=== PATIENT | female | born 1960 | race Caucasian/White ===

== ENCOUNTER 2016-12-02 03:40 | Emergency (ER) ==
[2016-12-02] MEDS ORDERED: ATIVAN IV ONE (04:05)
[2016-12-02] MEDS ORDERED: NS 500 ML IV ONE (04:06)
[2016-12-02] MEDS ORDERED: SODIUM CHLORIDE 0.9% INJ ONE (04:06)
[2016-12-02] MEDS ORDERED: PHENERGAN IV ONE (04:06)
[2016-12-02 04:14] LABS: MANUAL DIFF NEEDED? NO
--- NOTE | 2016-12-02 04:15 | PROVIDER DOCUMENTATION ---
HPI-Abdominal Pain/GI Problem - General Chief Complaint: Shortness of Breath Stated Complaint: FLU SX Time Seen by Provider: 12/02/16 03:56 Source: patient Allergies/Adverse Reactions: Patient Allergies Allergy/AdvReac Type Severity Reaction Status Date / Time codeine [Codeine] Allergy Mild HIVES Verified 08/04/16 13:38 Sulfa (Sulfonamide Allergy Mild ITCHING Verified 08/04/16 13:38 Antibiotics) [Sulfa(Sulfonamide Antibiotics)] levofloxacin [From Levaquin] Allergy NAUSEA/VOMI Verified 10/09/16 18:03 TING Home Medications: Levothyroxine Sodium [Levoxyl] 125 mcg PO DAILY@0700 09/21/12 Estradiol Vaginal Cream [Estrace Vaginal Cream] 1 applicatn VAG Q3DAYS 08/04/16 Rivaroxaban [Xarelto] 20 mg PO DAILY 10/10/16 - History of Present Illness-ABD Nature of Presenting Problems: pt states she has felt nauseous without vomiting and therefore has not ate much. No abdominal zapata constipation or diarhea. She has also felt more SOB than usual and her nebulizers don't seem to help when she uses them She did also mention that she ran out of her alprazolam 1 mg po BID 2 days ago. She states she is taking all her other medications including her pain medications and xarelto. No fevers. She complains that her chest franks. No leg swelling Review of Systems - Adult - REVIEW OF SYSTEMS - ADULT Constitutional: denies: chills, fever Eyes: denies: discharge, decreased vision, blurred vision Ears, Nose, Mouth & Throat: denies: ear pain, sinus problem, throat pain Cardiovascular: reports: chest pain. denies: edema, palpitations, syncope Respiratory: reports: cough, shortness of breath. denies: hemoptysis, pleurisy , wheezing Gastrointestinal: reports: nausea. denies: abdominal pain, hematemesis, constipation, diarrhea, rectal bleeding, vomiting Genitourinary: denies: dysuria, frequency, flank pain Musculoskeletal: denies: muscle aches Integumentary: denies: rash Neurological: denies: headache/migraines, numbness, paresthesia Psychiatric: reports: anxiety All Other Systems: Reviewed and Negative Past History - Adult - PAST MEDICAL HISTORY-ADULT Review of Records: reports: Old Records Reviewed, Nursing Assessment Review, Medications Reviewed, Social history reviewed & non-contributory. Major Childhood Illnesses: reports: denies history Cardiovascular: reports: cardiac disease (anxiety), HTN Respiratory: reports: asthma, COPD Gastrointestinal: reports: GERD Endocrine/Immune: reports: thyroid disorder (hypothyroid) Other Conditions: reports: denies history - PRIOR SURGERIES/PROCEDURES Surgical/Procedure History: reports: hysterectomy, other (bx breasts) - IMMUNIZATION STATUS Childhood Immunizations: See Nurse Assessment Flu Vaccine: See Nurse Assessment - FAMILY HISTORY Family History: reviewed, not pertinent Physical Exam-General - PHYSICAL EXAM-ADULT Initial Vital Signs Reviewed: Yes - CONSTITUTIONAL General Appearance: alert, mild distress, anxious - EYES Eyes: PERRL/EOMI, pink conjunctivae. negative: scleral icterus - HEAD, EARS, NOSE, MOUTH & THROAT HENMT: normocephalic/atraumatic, TMs normal, pharynx normal - NECK Neck: non-tender, full range of motion, supple, normal inspection. 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 negative: normal mood/affect Progress - PLAN OF CARE/RESULTS Progress/Plan/Lab Results: Laboratory Tests 12/02/16 12/02/16 12/02/16 04:00 04:00 04:00 WBC 9.04 RBC 4.50 Hgb 13.5 Hct 38.7 MCV 86.0 MCH 30.0 MCHC 34.9 RDW Std Deviation 17.5 H Plt Count 317 MPV 11.5 H Immature Gran % (Auto) 0.0 Neut % (Auto) 63.2 Lymph % (Auto) 26.0 [place] % (Auto) 8.8 Eos % (Auto) 0.3 Baso % (Auto) 1.7 H Immature Gran # (Auto) 0.00 Neut # (Auto) 5.71 Lymph # (Auto) 2.35 [place] # (Auto) 0.80 H Eos # (Auto) 0.03 Baso # (Auto) 0.15 Specimen Type Sample Site pH pCO2 pO2 HCO3 Base Excess Oxyhemoglobin ABG O2 Sat (Calculated) ABG O2 Saturation ABG Carboxyhemoglobin ABG Methemoglobin Yon Test A-a O2 Difference Total Hemoglobin Lactate Blood Gas Modality FiO2 % Sodium 129 L Potassium 3.9 Chloride 89 L Carbon Dioxide 21 L Anion Gap 18 BUN 8 Creatinine 0.9 Estimated GFR/1.73 m2 > 60 BUN/Creatinine Ratio 9 Glucose 125 H Calculated Osmolality 259 Calcium 9.0 Magnesium 2.2 Total Bilirubin 0.20 AST 27 ALT 11 Alkaline Phosphatase 84 [id number] Pept Total Protein 7.7 Albumin 4.5 Globulin 3.0 Albumin/Globulin Ratio 1.0 Lipase 24 TSH Free T4 Plasma/Serum Ethyl Alc 85 H 12/02/16 12/02/16 12/02/16 04:10 04:10 05:00 WBC RBC Hgb Hct MCV MCH MCHC RDW Std Deviation Plt Count MPV Immature Gran % (Auto) Neut % (Auto) Lymph % (Auto) [place] % (Auto) Eos % (Auto) Baso % (Auto) Immature Gran # (Auto) Neut # (Auto) Lymph # (Auto) [place] # (Auto) Eos # (Auto) Baso # (Auto) Specimen Type ARTERIAL Sample Site L RADIAL pH 7.38 pCO2 38 pO2 72 HCO3 22.9 Base Excess -2.3 Oxyhemoglobin 88.9 L* ABG O2 Sat (Calculated) 16.4 ABG O2 Saturation 94.9 L ABG Carboxyhemoglobin 4.90 H ABG Methemoglobin 1.4 Yon Test YES A-a O2 Difference 30.0 Total Hemoglobin 13.1 Lactate 2.10 Blood Gas Modality ROOM AIR FiO2 % 21.0 Sodium Potassium Chloride Carbon Dioxide Anion Gap BUN Creatinine Estimated GFR/1.73 m2 BUN/Creatinine Ratio Glucose Calculated Osmolality Calcium Magnesium Total Bilirubin AST ALT Alkaline Phosphatase [id number] Pept 207 Total Protein Albumin Globulin Albumin/Globulin Ratio Lipase TSH 2.25 Free T4 1.01 Plasma/Serum Ethyl Alc Orders Category Date Time Status CHEST-2 VIEWS [RAD] Stat Exams 12/02/16 04:07 Taken ABG [RESP] Routine Lab 12/02/16 05:00 Completed ALCOHOL BLOOD Stat Lab 12/02/16 04:00 Completed CBC WITH ELECTRONIC DIFF [HEME] Stat Lab 12/02/16 04:00 Completed CMP [COMPREHENSIVE METABOLIC PANEL] [CHEM] Stat Lab 12/02/16 04:00 Completed FREE T4 Stat Lab 12/02/16 04:10 Completed LIPASE [CHEM] Stat Lab 12/02/16 04:00 Completed MAGNESIUM [CHEM] Stat Lab 12/02/16 04:00 Completed PRO B-NATRIURETIC PEPTIDE Stat Lab 12/02/16 04:10 Completed TROPONIN T Stat Lab 12/02/16 04:10 Ordered TSH Stat Lab 12/02/16 04:10 Completed 0.9% Sodium Chloride Inj [Ns] 500 ml Med 12/02/16 04:06 Discontinued IV 999 mls/hr Diphenhydramine [Benadryl] Med 12/02/16 05:23 Discontinued 25 mg IV NOW ONE Lorazepam [Ativan] Med 12/02/16 04:05 Discontinued 1 mg IV NOW ONE Promethazine [Phenergan] Med 12/02/16 04:06 Discontinued 25 mg IV NOW ONE Sodium Chloride 0.9% Med 12/02/16 04:06 Discontinued 10 ml INJ NOW ONE EKG [EKG] Stat Ther 12/02/16 04:15 Ordered Vital Signs Temp Pulse Resp BP Pulse Ox 12/02/16 03:46 98.5 F 99 H 20 137/88 93 L codeine [Codeine] Allergy (Mild, Verified 08/04/16 13:38) HIVES Sulfa (Sulfonamide Antibiotics) [Sulfa(Sulfonamide Antibiotics)] Allergy (Mild, Verified 08/04/16 13:38) ITCHING levofloxacin [From Levaquin] Allergy (Verified 10/09/16 18:03) NAUSEA/VOMITING Levothyroxine Sodium [Levoxyl] 125 mcg PO DAILY@0700 09/21/12 Albuterol 2.5MG/Ipratrop 0.5MG [Duoneb (A & A)] 3 ml INH RTQ6H #90 neb 01/11/16 Estradiol Vaginal Cream [Estrace Vaginal Cream] 1 applicatn VAG Q3DAYS 08/04/16 Lisinopril/Hydrochlorothiazide [Lisinopril-Hctz 10-12.5 mg Tab] 1 tab PO DAILY # 0 10/10/16 Rivaroxaban [Xarelto] 20 mg PO DAILY 10/10/16 Laboratory 12/02/16 12/02/16 12/02/16 05:00 04:10 04:10 WBC RBC Hgb Hct MCV MCH MCHC RDW Std Deviation Plt Count MPV Immature Gran % (Auto) Neut % (Auto) Lymph % (Auto) [place] % (Auto) Eos % (Auto) Baso % (Auto) Immature Gran # (Auto) Neut # (Auto) Lymph # (Auto) [place] # (Auto) Eos # (Auto) Baso # (Auto) Specimen Type ARTERIAL Sample Site L RADIAL pH 7.38 pCO2 38 pO2 72 HCO3 22.9 Base Excess -2.3 Oxyhemoglobin 88.9 L* ABG O2 Sat (Calculated) 16.4 ABG O2 Saturation 94.9 L ABG Carboxyhemoglobin 4.90 H ABG Methemoglobin 1.4 Yon Test YES A-a O2 Difference 30.0 Total Hemoglobin 13.1 Lactate 2.10 Blood Gas Modality ROOM AIR FiO2 % 21.0 Sodium Potassium Chloride Carbon Dioxide Anion Gap BUN Creatinine Estimated GFR/1.73 m2 BUN/Creatinine Ratio Glucose Calculated Osmolality Calcium Magnesium Total Bilirubin AST ALT Alkaline Phosphatase Tym-I-Ekfuxfpphac Pept 207 Total Protein Albumin Globulin Albumin/Globulin Ratio Lipase TSH 2.25 Free T4 1.01 Plasma/Serum Ethyl Alc 12/02/16 12/02/16 12/02/16 04:00 04:00 04:00 WBC 9.04 RBC 4.50 Hgb 13.5 Hct 38.7 MCV 86.0 MCH 30.0 MCHC 34.9 RDW Std Deviation 17.5 H Plt Count 317 MPV 11.5 H Immature Gran % (Auto) 0.0 Neut % (Auto) 63.2 Lymph % (Auto) 26.0 [place] % (Auto) 8.8 Eos % (Auto) 0.3 Baso % (Auto) 1.7 H Immature Gran # (Auto) 0.00 Neut # (Auto) 5.71 Lymph # (Auto) 2.35 [place] # (Auto) 0.80 H Eos # (Auto) 0.03 Baso # (Auto) 0.15 Specimen Type Sample Site pH pCO2 pO2 HCO3 Base Excess Oxyhemoglobin ABG O2 Sat (Calculated) ABG O2 Saturation ABG Carboxyhemoglobin ABG Methemoglobin Yon Test A-a O2 Difference Total Hemoglobin Lactate Blood Gas Modality FiO2 % Sodium 129 L Potassium 3.9 Chloride 89 L Carbon Dioxide 21 L Anion Gap 18 BUN 8 Creatinine 0.9 Estimated GFR/1.73 m2 > 60 BUN/Creatinine Ratio 9 Glucose 125 H Calculated Osmolality 259 Calcium 9.0 Magnesium 2.2 Total Bilirubin 0.20 AST 27 ALT 11 Alkaline Phosphatase 84 Npu-Y-Cqpsieloktn Pept Total Protein 7.7 Albumin 4.5 Globulin 3.0 Albumin/Globulin Ratio 1.0 Lipase 24 TSH Free T4 Plasma/Serum Ethyl Alc 85 H - REASSESSMENT Reassessment #1 Time Reassessed: 05:35 (pt no longer feels SOB however is moderately intoxicated and somewhat consuded, as she was on arrival) - EKG 1 Time of EKG reading by physician:: 04:20 EKG Interpretation (*Must complete 3 of following elements*): Abnormal Rate: 127 Rhythm: sinus tach [place]: normal QRS: poor R wave progression CA Interval: normal ST Wave: normal Prior EKG Comparison: changes noted (increased HR o/w unchanged from 10/10/16) - XRAY 1 XRAY Study: Chest Impression: Normal (hyper expansion consistent with COPD) Departure - Departure Time of Disposition Order: 05:36 DIAGNOSIS: Alcohol intoxication Qualifiers: Complication of substance-induced condition: uncomplicated Qualified Code(s): F10.120 - Alcohol abuse with intoxication, uncomplicated Benzodiazepine withdrawal Qualifiers: Complication of substance-induced condition: uncomplicated Qualified Code(s): F13.230 - Sedative, hypnotic or anxiolytic dependence with withdrawal, uncomplicated Disposition: HOME 01 Certified Medical Emergency: Emergent Condition: Fair Prescriptions: Alprazolam [Xanax] 0.5 mg PO BID #7 tablet
[2016-12-02 05:02] LABS: BASO% 1.7 % (0.0-0.8); EOS# 0.03 X1000 (0.0-0.7); EOS% 0.3 % (0.0-10.0); HEMATOCRIT 38.7 % (37.0-47.0); HEMOGLOBIN 13.5 g/dL (12.0-16.0); LYMPH# 2.35 X1000 (1.2-3.4); MCHC 34.9 g/dL (33-37); MONO% 8.8 % (1.7-9.3); MPV 11.5 FL (7.4-10.4); NEUT% 63.2 % (42.2-75.2); PLT 317 X1000 (130-400)
[2016-12-02 05:09] LABS: AGAP 18; ALBUMIN 4.5 g/dL (3.5-5.0); ALKALINE PHOSPHATASE 84 U/L (32-104); BUN 8 mg/dL (8-22); CHLORIDE 89 mmol/L (98-107); COSMO 259; GOT 27 U/L (10-30); GPT 11 U/L (10-36); LIPASE 24 U/L (13-60); MAGNESIUM 2.2 mg/dL (1.5-2.7); POTASSIUM 3.9 mmol/L (3.5-5.1); SODIUM 129 mmol/L (136-145); TCO2 21 mmol/L (25-35); TOTAL PROTEIN 7.7 g/dL (6.3-8.3)
[2016-12-02 05:10] LABS: FREE T4 1.01 ng/dL (0.93-1.70)
[2016-12-02 05:12] LABS: BE -2.3 mmoll (-3.0-3.0); BLOOD TYPE ARTERIAL; DRAW SITE L RADIAL; METHB 1.4 % (0.0-1.5); O2(CT) 16.4 mL/dL (15.0-23.0); PCO2(98.6) 38 mmHg (35-45); PO2(98.6) 72 mmHg (60-100); SAMPLE BLOOD; SAO2 94.9 % (95.0-100.0); THB 13.1 g/dL (11.5-17.4); pH(98.6) 7.38 (7.35-7.45)
[2016-12-02 05:15] LABS: ALLEN TEST YES; MODALITY ROOM AIR
[2016-12-02] MEDS ORDERED: BENADRYL IV ONE (05:23)
--- NOTE | 2016-12-02 05:59 | EKG Report ---
Test Performed on : 12/02/2016 04:19:59 AM Test Reason : ER9 Blood Pressure : / mmHG Vent. Rate : 127 BPM Atrial Rate : 127 BPM P-R Int : 124 ms QRS Dur : 074 ms QT Int : 322 ms P-R-T Axes : 009 078 064 degrees QTc Int : 467 ms Sinus tachycardia. Cannot rule out Anterior infarct (cited on or before 10-OCT-2016) Abnormal ECG When compared with ECG of 10-OCT-2016 03:50, Sinus rhythm. has replaced Ectopic atrial rhythm. Unconfirmed Result
[2016-12-02 06:01] VITALS: BP 137/87
--- NOTE | 2016-12-02 08:36 | Diag Imaging Result Document ---
PROCEDURE NAME: CHEST-2 VIEWS - 12/02/2016 PA AND LATERAL RADIOGRAPH OF THE CHEST: COMPARISON: 10/09/2016. FINDINGS: Lungs are hyperinflated, stable. There is stable right apical pleural thickening. No new consolidations are identified. Cardiac silhouette is stable. IMPRESSION: Stable COPD changes and right apical pleural thickening. No definite acute pathology, otherwise.
== END 2016-12-02 06:36 | disposition home or self-care (01) ==
LOC: P.ED 03:40
DX: F10.129 Alcohol abuse with intoxication, unspecified (principal); F13.230 Sedative, hypnotic or anxiolytic dependence with withdrawal, uncomplicated; R11.0 Nausea; R05 Cough; R06.02 Shortness of breath; R07.9 Chest pain, unspecified; I10 Essential (primary) hypertension; R00.0 Tachycardia, unspecified; J44.9 Chronic obstructive pulmonary disease, unspecified; K21.9 Gastro-esophageal reflux disease without esophagitis; E03.9 Hypothyroidism, unspecified; Z79.899 Other long term (current) drug therapy; Z79.01 Long term (current) use of anticoagulants
CPT/HCPCS: 71020; 80053; 82805; 83690; 83735; 83880; 84439; 84443; 84484; 85025; 93005; 96361; 96374; 96375; G0480; J1200; J2060; J2550; J7040

== ENCOUNTER 2018-11-24 20:56 | Inpatient (IN) ==
[~2018-11-24 20:56] MED LIST: FLAGYL 500 MG/NS 500 MG/100 ML IVPB IV SCH
[2018-11-24] MEDS ORDERED: D5 NS 1,000 ML ONE (21:09)
[2018-11-24] MEDS ORDERED: PROTONIX IV ONE (21:13)
[2018-11-24] MEDS ORDERED: SODIUM CHLORIDE 0.9% INJ ONE ×2 (21:13→23:53)
[2018-11-24] MEDS ORDERED: D5 NS 1,000 ML IV ONE (21:13)
[2018-11-24] MEDS ORDERED: EPINEPHRINE SYRINGE IV ONE ×2 (21:24→21:28)
--- NOTE | 2018-11-24 21:25 | Diag Imaging Result Doc PS360 ---
EXAM: CHEST/ABD TUBE PLACEMENT INDICATION: post arrest TECHNIQUE: One view COMPARISON: 10/30/2018 FINDINGS: An ET tube projects over the trachea and above the thalia at about the T4 level. There is an NG tube that projects below the diaphragm and is assumed to be in the lumen of the stomach in expected position. Electrode pads project over the left chest wall. There are increased vascular markings, especially on the left suggesting mild pulmonary venous congestion. There is no discrete pleural fluid collection or pneumothorax. Cardiac silhouette is grossly unremarkable. IMPRESSION: 1.Interval placement of ET tube and NG tube as described. 2.Mildly increased central vascular markings suggesting possible pulmonary venous congestion. Electronically signed by Reuben Quiles 11/24/2018 9:22 PM
[2018-11-24 21:35] LABS: BASO# 0.03 X1000 (0.0-0.2); BASO% 0.5 % (0.0-0.8); EOS# 0.03 X1000 (0.0-0.7); EOS% 0.5 % (0.0-10.0); HEMATOCRIT 34.8 % (37.0-47.0); HEMOGLOBIN 10.2 g/dL (12.0-16.0); IMM GRAN# 0.25 X1000 (0.0-0.04); IMM GRAN% 4.2 % (0.0-0.5); LYMPH% 30.3 % (20.5-51.1); MCH 31.9 PG (27-31); MCHC 29.3 g/dL (33-37); MCV 108.8 FL (81-99); MONO# 0.39 X1000 (0.11-0.59); MONO% 6.6 % (1.7-9.3); MPV 11.5 FL (7.4-10.4); NEUT# 3.45 X1000 (1.4-6.5); NEUT% 57.9 % (42.2-75.2); PLT 267 X1000 (130-400); RDW 18.1 % (11.5-14.5); WBC 5.95 X1000 (4.8-10.8)
[2018-11-24] MEDS ORDERED: DOPAMINE 400 MG/D5W 400 MG/500 ML IV.SOLN IV SCH (21:45)
[2018-11-24] MEDS ORDERED: DOPAMINE 800 MG/D5W 800 MG/500 ML IV.SOLN ONE (21:45)
[2018-11-24] MEDS: DOPAMINE 800 MG/D5W 800 MG/500 ML IV.SOLN IV SCH (21:50)
[2018-11-24] MEDS ORDERED: CALCIUM GLUCONATE IV STA (21:56)
[2018-11-24] MEDS ORDERED: EPINEPHRINE 4 MG in NS 250 ML IV SCH (22:00)
[2018-11-24 22:15] LABS: ALLEN TEST YES; BE -5.8 mmoll (-3.0-3.0); BLOOD TYPE ARTERIAL; HCO3-(ACT) 20.3 mmoll (20.0-26.0); METHB 1.3 % (0.0-1.5); O2(CT) 13.9 mL/dL (15.0-23.0); O2HB 93.3 % (95.0-99.0); PO2(98.6) 466 mmHg (60-100); SAMPLE BLOOD; SRATE 14 BPM; THB 9.6 g/dL (11.5-17.4); TVOL 500 mL
[2018-11-24 22:17] LABS: MODALITY VENTILATOR
[2018-11-24 22:19] LABS: PCO2(98.6) 74 mmHg (35-45); pH(98.6) 7.12 (7.35-7.45)
[2018-11-24 22:21] LABS: ALB/GLOB RATIO 1.9; ALBUMIN 4.4 g/dL (3.5-5.0); CALCIUM 8.2 mg/dL (8.8-10.2); CREATININE 1.5 mg/dL (0.5-0.9); TOTAL BILIRUBIN 0.15 mg/dL (0.20-1.00); TOTAL PROTEIN 6.7 g/dL (6.3-8.3)
[2018-11-24 22:22] LABS: POTASSIUM 6.2 mmol/L (3.5-5.1)
--- NOTE | 2018-11-24 22:57 | PROVIDER DOCUMENTATION ---
This chart was entered by Lore Puri Scribe, acting as scribe for Pa Contreras MD. HPI-Cardiopulmonary Arrest - General Chief Complaint: Full Arrest Stated Complaint: post arrest Time Seen by Provider: 11/24/18 20:56 Source: patient Allergies/Adverse Reactions: Allergies Allergy/AdvReac Type Severity Reaction Status Date / Time codeine [Codeine] Allergy Mild HIVES Verified 06/19/18 11:22 Sulfa (Sulfonamide Allergy Mild ITCHING Verified 06/19/18 11:22 Antibiotics) [Sulfa(Sulfonamide Antibiotics)] levofloxacin [From Levaquin] Allergy NAUSEA/VOMI Verified 06/19/18 11:22 TING tramadol Allergy SWELLING Verified 07/12/18 13:08 Home Medications: Home Medication List Medication Instructions Recorded Confirmed Last Taken Type Albuterol Sulfate [Proair Hfa] 1 dose INH PRN PRN 09/22/17 10/28/18 Unknown History Ergocalciferol (Vitamin D2) 1 tab PO Q7D 09/22/17 10/28/18 09/10/18 History [Vitamin D2] Sucralfate [Carafate] 1 dose PO DAILY 09/22/17 10/28/18 Unknown History Folic Acid 1 mg PO DAILY 06/19/18 10/28/18 06/18/18 History Iron Carbonyl/Ascorbic Acid 1 ea PO BID #60 tab 07/03/18 10/28/18 Unknown Rx [Icar-C] Polyethylene Glycol 3350 [Miralax] 17 gm PO BID #60 powder, packet 07/03/1803/12 Unknown Rx Simethicone Chew [Mylicon] 80 mg PO PC + HS PRN #60 tab 07/03/18 10/28/18 Unknown Rx Pantoprazole [Protonix] 40 mg PO DAILY@0700 09/10/18 10/28/18 Unknown History Acetaminophen [Tylenol] 650 mg PO Q6H PRN PRN tablet 09/12/18 10/28/18 Unknown Rx Levothyroxine [Synthroid] 100 microgm PO DAILY@0700 #30 tab 09/12/18 10/28/18 Unknown Rx Hydrocodone/Acetaminophen [[place] 1 tab PO BID 10/28/18 10/28/18 10/27/18 05:00 History 7.5-325 Tablet] Lorazepam 1 tab PO HS 10/28/18 10/28/18 10/27/18 15:00 History Lisinopril/Hydrochlorothiazide 1 tab PO DAILY 10/29/18 10/29/18 Unknown History [Lisinopril-Hctz 10-12.5 mg Tab] Colchicine [Colcrys] 0.6 mg PO BID 10/30/18 10/30/18 Unknown History - History of Present Illness-C/P Arrest Initial Comments: Patient is a 58 year old female who presents to the ED via EMS with successful resuscitation after cardiopulmonary arrest. EMS states patient's mother stated patient went to bed at 1999 and then she found patient in the floor unresponsive at 2024. EMS states on their arrival patient was asystole. EMS states successful resuscitation was at 2039. EMS states patient received 3 rounds of epi, 1 bicarb, narcan and D50. EMS states placing a [place] [employer]. 2053 - patient arrived in ED via EMS. 2056 - EKG done. 2057 - epi given. 2099 - 7.5 tube placed. 2100 - 139 FSBS. 2122 - epi given. Reason for Code Blue?: full arrest Witnessed arrest?: No Bystander CPR?: No CPR initiated before doctor arrival?: Yes Initial Findings: unresponsive, no pulse Treatment initiated prior to doctor arrival?: Initiated CPR/thumper (thumper), Initiated epinephrine #mg (3), Initiated sodium bicarb # amps (1), Initiated other (narcan and D50) Similar Symptoms Previously?: No Recently seen or treated by another doctor?: No - Pre-hospital Treatment EMS Initial Findings:: unresponsive, other (no pulse) Pre-hospital Treatment: Initiated CPR (thumper), Initiated epinephrine (3), Initiated other (1 bicarb, narcan and D50) Review of Systems - Adult - REVIEW OF SYSTEMS - ADULT ROS:: unobtainable per condition Constitutional: reports: no symptoms reported Eyes: reports: no symptoms reported Ears, Nose, Mouth & Throat: reports: no symptoms reported Cardiovascular: reports: no symptoms reported Respiratory: reports: no symptoms reported Gastrointestinal: reports: no symptoms reported Genitourinary: reports: no symptoms reported Musculoskeletal: reports: no symptoms reported Integumentary: reports: no symptoms reported Neurological: reports: no symptoms reported Psychiatric: reports: no symptoms reported Endocrine: reports: no symptoms reported Hematologic/Lymphatic: reports: no symptoms reported Allergic/Immunologic: reports: no symptoms reported All Other Systems: Reviewed and Negative Past History - Adult - PAST MEDICAL HISTORY-ADULT Review of Records: reports: Nursing Assessment Review, Medications Reviewed, Social history reviewed & non-contributory. Major Childhood Illnesses: reports: denies history Cardiovascular: reports: cardiac disease (anxiety), HTN, hyperlipidemia Respiratory: reports: asthma, COPD Gastrointestinal: reports: GERD Obstetrical/Gynecological: reports: denies history Genitourinary: reports: denies history Musculoskeletal: reports: chronic pain Neurological: reports: denies history Endocrine/Immune: reports: thyroid disorder (hypothyroid) Other Conditions: reports: denies history - PRIOR SURGERIES/PROCEDURES Surgical/Procedure History: reports: recent surgery, appendectomy, cholecystectomy, hysterectomy, other (bx breasts) - IMMUNIZATION STATUS Childhood Immunizations: See Nurse Assessment Flu Vaccine: See Nurse Assessment - FAMILY HISTORY Family History: reviewed, not pertinent - SOCIAL HISTORY Smoking: cigarettes, less than 1 pack/day Provider spent 3-5 mins advising pt. on dangers of tobacco.: Discussed manners to quit use, and f/u contacts for add'l counseling. Substance Use: alcohol Alcohol Use Frequency: occasionally Living Situation: family Physical Exam-General - PHYSICAL EXAM-ADULT Initial Vital Signs Reviewed: Yes - CONSTITUTIONAL General Appearance: other (unresponsive) - RESPIRATORY Respiratory: other (respirations present via ambu bag through intubation.) - CARDIOVASCULAR Cardiovascular: regular rate, rhythm - GASTROINTESTINAL (ABDOMEN) Abdominal Exam: normal bowel sounds, soft - MUSCULOSKELETAL Extremity: other (IO present to left lower extremity) - SKIN Integumentary: pallor - NEUROLOGIC Neurologic: other (unable to assess per patient's condition) - PSYCHIATRIC Psych/Mental Status: other (unresponsive) Progress - PLAN OF CARE/RESULTS Progress/Plan/Lab Results: Vital Signs - 8 hr 11/24/18 21:24 O2 Sat by Pulse Oximetry 100 Laboratory Results - last 24 hr 11/24/18 11/24/18 11/24/18 21:09 21:09 21:09 WBC 5.95 RBC 3.20 L Hgb 10.2 L Hct 34.8 L MCV 108.8 H MCH 31.9 H MCHC 29.3 L RDW Std Deviation 18.1 H Plt Count 267 MPV 11.5 H Immature Gran % (Auto) 4.2 H Neut % (Auto) 57.9 Lymph % (Auto) 30.3 [place] % (Auto) 6.6 Eos % (Auto) 0.5 Baso % (Auto) 0.5 Immature Gran # (Auto) 0.25 H Neut # (Auto) 3.45 Lymph # (Auto) 1.80 [place] # (Auto) 0.39 Eos # (Auto) 0.03 Baso # (Auto) 0.03 Specimen Type Sample Site pH pCO2 pO2 HCO3 Base Excess Oxyhemoglobin ABG O2 Sat (Calculated) ABG O2 Saturation ABG Carboxyhemoglobin ABG Methemoglobin Yon Test A-a O2 Difference Total Hemoglobin Lactate Blood Gas Modality Vent Mode Spontaneous Rate FiO2 % Tidal Volume PEEP Sodium 138 Potassium 6.2 H* Chloride 93 L Carbon Dioxide 25 Anion Gap 20 BUN 24 H Creatinine 1.5 H Estimated GFR/1.73 m2 35 BUN/Creatinine Ratio 16 Glucose 162 H Calculated Osmolality 283 Calcium 8.2 L Total Bilirubin 0.15 L AST 536 H ALT 325 H Alkaline Phosphatase 87 Creatine Kinase 157 Troponin T < 0.010 Total Protein 6.7 Albumin 4.4 Globulin 2.3 Albumin/Globulin Ratio 1.9 11/24/18 22:12 WBC RBC Hgb Hct MCV MCH MCHC RDW Std Deviation Plt Count MPV Immature Gran % (Auto) Neut % (Auto) Lymph % (Auto) [place] % (Auto) Eos % (Auto) Baso % (Auto) Immature Gran # (Auto) Neut # (Auto) Lymph # (Auto) [place] # (Auto) Eos # (Auto) Baso # (Auto) Specimen Type ARTERIAL Sample Site R BRACHIAL pH 7.12 L* pCO2 74 H* pO2 466 H HCO3 20.3 Base Excess -5.8 L Oxyhemoglobin 93.3 L ABG O2 Sat (Calculated) 13.9 L ABG O2 Saturation 99.0 ABG Carboxyhemoglobin 4.50 H ABG Methemoglobin 1.3 Yon Test YES A-a O2 Difference 155.0 Total Hemoglobin 9.6 L Lactate 6.60 H* Blood Gas Modality VENTILATOR Vent Mode A/C Spontaneous Rate 14 FiO2 % 100.0 Tidal Volume 500 PEEP 5.0 Sodium Potassium Chloride Carbon Dioxide Anion Gap BUN Creatinine Estimated GFR/1.73 m2 BUN/Creatinine Ratio Glucose Calculated Osmolality Calcium Total Bilirubin AST ALT Alkaline Phosphatase Creatine Kinase Troponin T Total Protein Albumin Globulin Albumin/Globulin Ratio Orders Category Date Time Status Anaya Cath Insertion ORDERED Care 11/24/18 21:15 Active NG/OG/Feeding Tube Insertion ORDERED Care 11/24/18 21:16 Active CHEST/ABD TUBE PLACEMENT [RAD] Stat Exams 11/24/18 21:12 Completed ABG [RESP] Routine Lab 11/24/18 22:12 Completed CBC WITH DIFF [HEME] Stat Lab 11/24/18 21:09 Completed CK PROFILE [SP CHEM] Stat Lab 11/24/18 21:09 Completed CMP [COMPREHENSIVE METABOLIC PANEL] [CHEM] Stat Lab 11/24/18 21:09 Completed TROPONIN T Stat Lab 11/24/18 21:09 Completed 0.9% Sodium Chloride Inj [Ns] 250 ml Med 11/24/18 22:00 Active Epinephrine 4 mg IV As Directed Calcium Gluconate Med 11/24/18 21:56 Discontinued 1 gm IV STAT STA Dextrose 5%-0.9% NaCl Inj [D5 Ns] 1,000 ml Med 11/24/18 21:09 Discontinued .ROUTE As Directed Dextrose 5%-0.9% NaCl Inj [D5 Ns] 1,000 ml Med 11/24/18 21:13 Active IV 125 mls/hr Dopamine 800 mg/D5w Med 11/24/18 21:45 Discontinued 800 mg in 500 ml .ROUTE As Directed Dopamine 800 mg/D5w Med 11/24/18 22:00 Active 800 mg in 500 ml IV As Directed Epinephrine Syringe Med 11/24/18 21:24 Discontinued 1 mg IV NOW ONE Epinephrine Syringe Med 11/24/18 21:28 Discontinued 1 mg IV NOW ONE Pantoprazole [Protonix] Med 11/24/18 21:13 Discontinued 40 mg IV NOW ONE Sodium Chloride 0.9% Med 11/24/18 21:13 Discontinued 10 ml INJ NOW ONE EKG [EKG] Stat Ther 11/24/18 21:14 Ordered Result Diagrams: 11/24/18 21:09 11/24/18 21:09 - REASSESSMENT Reassessment #1 Time Reassessed: 22:20 Status: unchanged (family tells me pt known to have taken xanx x 10, oxycontin x 1 , norco 7.5 x 6 today! hx of hyperkalemia and polypharmacy) Reassessment #2 Time Reassessed: 21:43 (recording earlier intervention) Status: worsening (with epi drip, 72/, sinus tachy, change to dopamine drip) Reassessment #3 Time Reassessed: 22:45 Status: improving (consider hypothermia tx per dr Becerril, anuric when foly placed. hx CKD.) - EKG 1 Time of EKG reading by physician:: 20:54 EKG Read and Signed by:: Helio Sears EKG Interpretation (*Must complete 3 of following elements*): Abnormal (rhythm - sinus tachycardia with frequent premature ventricular complexes in a pattern of bigeminy.) Rate: 159 QRS: RBB Comments: septal infarct, age undetermined 2 Time of EKG reading by physician:: 20:55 EKG Read and Signed by:: Pa Contreras EKG Interpretation (*Must complete 3 of following elements*): Abnormal (rhythm - sinus tachycardia with premature supraventricular complexes in a pattern of bigeminy and premature ventricular complexes or fusion complexes) Rate: 161 QRS: LBB - XRAY 1 XRAY Study: Chest, Abdomen, other (tube placement) Impression: See EMR Report (EXAM: CHEST/ABD TUBE PLACEMENT INDICATION: post arrest TECHNIQUE: One view COMPARISON: 10/30/2018 FINDINGS: An ET tube projects over the trachea and above the thalia at about the T4 level. There is an NG tube that projects below the diaphragm and is assumed to be in the lumen of the stomach in expected position. Electrode pads project over the left chest wall. There are increased vascular markings, especially on the left suggesting mild pulmonary venous congestion. There is no discrete pleural fluid collection or pneumothorax. Cardiac silhouette is grossly unremarkable. IMPRESSION: 1.Interval placement of ET tube and NG tube as described. 2.Mildly increased central vascular markings suggesting possible pulmonary venous congestion. Electronically signed by Reuben Quiles 11/24/2018 9:22 PM 11/24/182121 Interpreting Physician: Reuben Quiles MD Dictated Date/Time: 11/24/182118 cc: Pa Contreras MD;) - CONSULTS/PCP/HOSPITALIST Notification #1 *Consult/PCP/Hospitalist*: Dr. Blank Time Discussed: 22:31 Reason/Comments: Dr. Contreras consulted with Dr. Blank about patient. Consult Disposition: Will see in ED, Admit Procedures - INTUBATION Time of Intubation: 21:00 Mallampati Class: 3 Intubation Method: orotracheal Equipment: ETT Tube Size (cm): 7.5 Pretreated with 100% Oxygen?: Yes Breath Sounds after Intubation: equal ETT Primary Tube Confirmation: Capnometry CO2 Change, Direct Visualization, Chest Rise and Fall, Tube placement verified on XRAY Intubation Complications: no complications Procedure Comment: cords visiualized , first try Departure - Departure Date of Disposition Decision: 11/24/18 Time of Disposition Decision: 22:46 DIAGNOSIS: Cardiopulmonary arrest with successful resuscitation, Altered mental status, unspecified, Hyperkalemia, Anuria and oliguria Hypotension Qualifiers: Hypotension type: unspecified hypotension type Qualified Code(s): I95.9 - Hypotension, unspecified Disposition: ADMITTED INPATIENT 09 Certified Medical Emergency: Emergent Condition: Fair Referrals and Follow-Ups: None,PCP [Primary Care Provider] - - Critical Care Note This patient required my direct & personal management of CC.: Yes Total Time (mins): 112 Critical Care Statement: This patient required my direct personal management to treat or rule out processes, the absence of which, could potentiallly result in sudden, clinically significant life or limb threatening deterioration. Attestation - Physician/ CORY Attestation Patient care was provided by Advanced Practice Provider:: No The physician spent face to face time with patient:: Yes Advanced Practice Provider documentation review:: Supervising physician onsite and consulted in the evaluation and care of this patient. The physician did have a face to face encounter with the patient. This chart was documented by the indicated scribe, (Lore Puri Scribe) and accurately reflects the services I performed and decisions made by me, Pa Contreras MD, as attested by the provider's signature.
[2018-11-24] MEDS ORDERED: D50W SYRINGE IV ONE (23:37)
[2018-11-24] MEDS ORDERED: HUMULIN R IV ONE (23:38)
[2018-11-24] MEDS ORDERED: NS 1,000 ML IV ONE (23:52)
[2018-11-24] MEDS ORDERED: ZOFRAN IV PRN (23:53)
[2018-11-25] MEDS ORDERED: DIPRIVAN 1% 2,000 MG/200 ML BOTTLE ONE (00:11)
[2018-11-25] MEDS: DOPAMINE 800 MG/D5W 800 MG/500 ML IV.SOLN IV SCH (01:36)
[2018-11-25 01:39] LABS: CALCIUM 7.5 mg/dL (8.8-10.2); CREATININE 1.5 mg/dL (0.5-0.9); POTASSIUM 5.5 mmol/L (3.5-5.1)
--- NOTE | 2018-11-25 02:42 | HISTORY AND PHYSICAL ---
CHIEF COMPLAINT: Full arrest. HISTORY OF PRESENT ILLNESS: The patient is a very unfortunate 58-year-old female who apparently has had history in the past of over-medicating. She was brought to the ER via EMS after being resuscitated on the scene due to a full cardiopulmonary arrest. The patient's mother notes that she had gone to the bed at approximately 10:00 p.m., and then the patient was found unresponsive on the floor at 10:25. They have no idea how long she was down as they did not hear her fall. When EMS arrived on scene the patient was in asystole and was resuscitated at 20:40. She did receive 3 rounds of epinephrine, 1 of bicarbonate, Narcan and D50, as well as an IO to her left mendoza. Currently the patient is unresponsive, she is on mechanical ventilation. The family is not currently present although they do note that she has done this in the past and that she has a history of overusing medications. ALLERGIES: Codeine causing itching. Sulfa causing itching. Levaquin causing nausea. Tramadol causing swelling. MEDICATIONS: Medications per the ER chart are ProAir p.r.n., vitamin D, Carafate, folic acid, MiraLAX, Protonix, Tylenol, Synthroid 100, [place] p.r.n. twice a day, lorazepam at bedtime, lisinopril hydrochlorothiazide 10/12.5, and colchicine. PAST MEDICAL HISTORY: Known coronary artery disease, hypertension, hyperlipidemia, history of COPD, reflux, chronic anxiety, depression, chronic pain, hypothyroidism. PAST SURGICAL HISTORY: She has had an appendectomy cholecystectomy, and hysterectomy. FAMILY HISTORY: Noncontributory. SOCIAL HISTORY: The patient continues to smoke a pack a day. Does drink alcohol on a regular basis. Has a history of substance abuse and overuse. PHYSICAL EXAMINATION: VITAL SIGNS: Reviewed. Pulse ranges from 110-130, respiratory 20, BP 115/58 to 97/51. GENERAL: The patient is an unresponsive female who currently is on mechanical ventilation, although she is noted to start having some movement. She has an NG tube in place as well as a Anaya catheter. HEENT: Normocephalic and atraumatic. NECK: Supple. No JVD. CARDIOVASCULAR: Tachycardia. No murmurs. CHEST: Decreased breath sounds but equal bilaterally. Positive rhonchi but no crackles, no wheezing. ABDOMEN: Soft, obese, nondistended. EXTREMITIES: The patient is noted to move all 4 extremities although unable to assess strength. NEUROLOGIC: Unable to assess as she currently is on mechanical ventilation and is unresponsive to commands or questions. However, she will withdraw somewhat to noxious stimuli. LABORATORY DATA: H and H 10 and 30. MCV 108, MCH 31. PH 7.12 with a pCO2 of 74, and an O2 of 466, with a lactate at 6.6. Currently on a ventilator with a spontaneous rate of 14. Potassium at 6.2, BUN 24, creatinine 1.5. ASSESSMENT: 1. Acute on chronic renal failure. Her most recent creatinine in October was 0.5. 2. Hypokalemia. 3. Acute hepatitis. AST 536, ALT 325, likely due to hypoxic insult. 4. Acute respiratory acidosis. 5. Anemia of chronic disease. 6. Acute respiratory failure currently on mechanical ventilation. 7. Polysubstance abuse and overdose, although no reported history of suicide ideations. 8. Known chronic obstructive pulmonary disease with exacerbation. 9. Known coronary artery disease. 10. Hypertension. 11. Chronic pain. 12. Hypothyroidism. 13. Chronic tobacco abuse. PLAN: We will continue the patient in the hospital, continue ventilation until she improves. She currently is having tachycardia. We will stop the dopamine and change to Levophed. We will give her another bolus of normal saline and then increase her to 200 an hour of normal saline as she is having very little urine output. We will recheck her potassium and treat accordingly. We will adjust her home medications when doses are made available. cc: Bolivar Blank MD
[2018-11-25] MEDS: PROTONIX IV SCH ×3 (02:58→22:32)
[2018-11-25] MEDS: FLAGYL 500 MG/NS 500 MG/100 ML IVPB IV SCH ×2 (03:00→06:29)
[2018-11-25] MEDS: ZOSYN 3.375 GM in NS 50 ML IV SCH ×4 (03:00→18:36)
[2018-11-25] MEDS: NS 1,000 ML IV SCH ×5 (04:03→18:37)
[2018-11-25] MEDS ORDERED: EPINEPHRINE SYRINGE ONE (04:10)
[2018-11-25 05:15] LABS: ALLEN TEST YES; BE 0.4 mmoll (-3.0-3.0); BLOOD TYPE ARTERIAL; HCO3-(ACT) 25.2 mmoll (20.0-26.0); METHB 1.1 % (0.0-1.5); O2(CT) 14.6 mL/dL (15.0-23.0); O2HB 94.6 % (95.0-99.0); PO2(98.6) 89 mmHg (60-100); SAMPLE BLOOD; SAO2 97.2 % (95.0-100.0); SRATE 20 BPM; THB 10.9 g/dL (11.5-17.4); TVOL 500 mL; pH(98.6) 7.33 (7.35-7.45)
[2018-11-25 05:16] LABS: MODALITY VENTILATOR
[2018-11-25 05:55] LABS: HEMATOCRIT 29.3 % (37.0-47.0); HEMOGLOBIN 8.8 g/dL (12.0-16.0); MCH 31.1 PG (27-31); MCV 103.5 FL (81-99); MPV 11.5 FL (7.4-10.4); RBC 2.83 XMIL (4.2-5.4); RDW 17.8 % (11.5-14.5); WBC 7.18 X1000 (4.8-10.8)
[2018-11-25 06:13] LABS: CALCIUM 7.4 mg/dL (8.8-10.2); CREATININE 1.3 mg/dL (0.5-0.9); POTASSIUM 5.5 mmol/L (3.5-5.1)
[2018-11-25 06:22] LABS: INR 1.13; PROTIME 15.4 Seconds (11.0-16.0)
[2018-11-25 06:24] LABS: AGAP 16; ALB/GLOB RATIO 1.2; ALBUMIN 3.5 g/dL (3.5-5.0); ALKALINE PHOSPHATASE 72 U/L (32-104); BUN 30 mg/dL (8-22); CALCIUM 7.4 mg/dL (8.8-10.2); CHLORIDE 99 mmol/L (98-107); COSMO 285; CREATININE 1.3 mg/dL (0.5-0.9); ESTIMATED GFR 42; GLUCOSE 87 mg/dL (70-104); GOT 1216 U/L (10-30); GPT 569 U/L (10-36); MAGNESIUM 2.2 mg/dL (1.5-2.7); POTASSIUM 5.4 mmol/L (3.5-5.1); SODIUM 140 mmol/L (136-145); TCO2 25 mmol/L (25-35); TOTAL BILIRUBIN < 0.15 mg/dL (0.20-1.00); TOTAL PROTEIN 6.5 g/dL (6.3-8.3)
[2018-11-25] MEDS: DIPRIVAN 1% 1,000 MG/100 ML BOTTLE IV SCH ×2 (07:04→23:03)
--- NOTE | 2018-11-25 07:54 | Diag Imaging Result Doc PS360 ---
EXAM: CHEST-PORTABLE INDICATION: vent evaluation TECHNIQUE: One view COMPARISON: 11/24/2018 FINDINGS: Support tubes and lines are in stable positions. Central vasculature appears slightly more prominent than the previous study suggesting slight worsening of pulmonary venous congestion. No other new consolidations are identified. Cardiac silhouette is stable. IMPRESSION: Interval slight worsening of pulmonary venous congestion. Electronically signed by Reuben Quiles 11/25/2018 7:52 AM
[2018-11-25] MEDS ORDERED: KAYEXALATE GT ONE (09:25)
--- NOTE | 2018-11-25 09:36 | EKG Report ---
Test Performed on : 11/24/2018 8:55:27 PM Test Reason : cardia arrest Blood Pressure : / mmHG Vent. Rate : 161 BPM Atrial Rate : 161 BPM P-R Int : 160 ms QRS Dur : 130 ms QT Int : 214 ms P-R-T Axes : 073 062 248 degrees QTc Int : 350 ms Sinus tachycardia. with premature supraventricular complexes. in a pattern of bigeminy. and premature ventricular complexes. or fusion complexes Left bundle branch block Abnormal ECG No previous ECGs available Unconfirmed Result
[2018-11-25 09:51] LABS: UR AMPHETAMINES QUAL NONE DETECTED (NONE DETECT); UR BARBITUATES QUAL NONE DETECTED (NONE DETECT); UR BENZODIAZEPIN QUAL NONE DETECTED (NONE DETECT); UR CANNABINOIDS QUAL NONE DETECTED (NONE DETECT); UR COCAINE QUAL NONE DETECTED (NONE DETECT); UR METHADONE QUAL NONE DETECTED (NONE DETECT); UR OPIATES QUAL PRESUMPTIVE POSITIVE (NONE DETECT); UR OXYCODONE QUAL PRESUMPTIVE POSITIVE (NONE DETECT); UR PCP QUAL NONE DETECTED (NONE DETECT)
[2018-11-25] MEDS: TEFLARO 600 MG in NS 250 ML IV SCH ×2 (09:51→20:14)
--- NOTE | 2018-11-25 09:54 | Diag Imaging Result Doc PS360 ---
EXAM: CT HEAD W/O CONTRAST INDICATION: Found Unresponsive on floor,Cardiac Arrest TECHNIQUE: This exam was performed using automated exposure control, adjustment of mA or kV according to patient size, and/or use of iterative reconstruction technique. COMPARISON: 10/27/2018 FINDINGS: There is no definite acute infarct given the limited sensitivity of CT versus MRI. There is no discrete intracranial mass, mass effect, or intracranial hemorrhage. There are small air-fluid levels in the sphenoid and ethmoid sinuses that are likely related to NG tube placement. Surrounding soft tissues and bony structures are essentially unremarkable, otherwise. IMPRESSION: No evidence of acute intracranial pathology. Electronically signed by Reuben Quiles 11/25/2018 9:51 AM
--- NOTE | 2018-11-25 11:38 | PROGRESS NOTE ---
DATE: 11/25/2018 SUBJECTIVE: Patient is sedated and intubated. OBJECTIVE: Vital Signs: Temperature 99.5, heart rate 110, respiratory rate 20 , blood pressure 112/79, O2 saturation 100% on mechanical ventilator at FiO2 of 50%. General Examination: This is a chronically ill-looking, 58-year-old, female, sedated and intubated. HEENT: Patient is intubated. Neck: No JVD noted. No carotid bruits. No lymphadenopathy. Cardiovascular Examination: S1 and S2 heard. Tachycardic. No murmurs, gallops, or rubs. Respiratory Examination: Coarse breath sounds noted in both pulmonary bases. The patient is intubated. Abdomen: Soft. Bowel sounds present. No organomegaly. Extremities: There are peripheral pulses present in both legs. Neurological Examination: The patient is sedated and intubated. X-ray: Interval slight worsening of pulmonary venous congestion. Laboratory Data: White cell count 7.18, hemoglobin 8.8, hematocrit 29.3, platelet count 225,000. ABG shows pH of 7.33, with pCO2 of 51, PO2 89, on ventilator at FiO2 of 50%, on PEEP of 5.0. Potassium 5.4, creatinine 1.3, calcium 7.4. AST 1216, ALT 569. UDS is positive for opiates and oxycodone. ASSESSMENT AND PLAN: 1. Acute respiratory failure, on ventilator secondary to drug overdose. At this point, we will continue with the same ventilator settings. That is going to be managed by pulmonary. There is definitely less CO2 accumulation. Patient's urine drug screen is positive for oxycodone and opiates. We will continue to check arterial blood gases daily. The x- ray from today shows a slightly worsening of pulmonary venous congestion. Physical examination did not disclose too many crackles in both pulmonary mathur. Considering her renal function is 1.3, I prefer to hold and see if she will need Lasix tomorrow. We will continue to monitor. 2. Shock liver. We do not know exactly what was the blood pressure when this patient was brought to the emergency department but ALT and AST are going up. We will continue to monitor. Currently, she is on dopamine. 3. Polysubstance abuse and overdose. The patient has been admitted to the hospital because of those conditions. We will continue to monitor. 4. Chronic obstructive pulmonary disease. Patient is receiving breathing treatments; in this case, DuoNeb every 4 hours scheduled. We will continue with the same management. 5. Hypertension. Actually, the blood pressure is low. She is on vasopressors. 6. Disposition. We will continue to monitor this patient in the intensive care unit. We will continue to monitor also urine output as well. cc: Drew Handy MD MTDD
--- NOTE | 2018-11-25 11:52 | Diag Imaging Result Doc PS360 ---
EXAM: CHEST/ABD TUBE PLACEMENT INDICATION: OG tube placement TECHNIQUE: One view COMPARISON: 11/25/2018 FINDINGS: The newly placed NG tube is identified. The tip projects below the diaphragm and is assumed to be in the lumen of the stomach in expected position. The visualized portions of the lungs are overexposed but appear to be stable. IMPRESSION: Interval placement of NG tube in expected position as described. Electronically signed by Reuben Quiles 11/25/2018 11:50 AM
[2018-11-25] MEDS: LOVENOX SUBQ SCH (13:41)
--- NOTE | 2018-11-25 13:55 | PULMONOLOGY CONSULTATION ---
DATE: 11/25/2018 REQUESTING PHYSICIAN: Dr. Carlos REASON FOR CONSULTATION: Cardiopulmonary arrest. HISTORY OF PRESENT ILLNESS: Ms. Bolden is a 58-year-old white female with COPD, ongoing tobacco use, history of chronic pain syndrome, who fell at home and was found by her mother. EMS arrived and the patient was in full cardiac arrest. They did achieve return of spontaneous circulation, and she was transferred to the hospital. The patient was having some purposeful movement by report and did not undergo hypothermia protocol. PAST MEDICAL HISTORY: 1. COPD with ongoing tobacco use. 2. Coronary artery disease. 3. Chronic pain syndrome. 4. Chronic anxiety. 5. Gastroesophageal reflux. 6. Hypothyroidism. SOCIAL HISTORY: Ongoing tobacco and alcohol use. She lives with her mother. FAMILY HISTORY: Noncontributory to current presentation. REVIEW OF SYSTEMS: Reveals a thin white female on mechanical ventilation. She does not respond to pain. She does have spontaneous respiratory effort. PHYSICAL EXAMINATION: Vital Signs: Blood pressure 135/80, heart rate 114, respiratory rate 18, oxygen saturation 98%. HEENT: Pupils are equal but sluggish to light. Oropharynx appears dry. Neck: Supple. Chest: Reveals prolonged expiratory phase. Cardiac: Increased rate, regular rhythm. Abdomen: Soft. Extremities: Without edema. LABORATORY DATA: CT scan of the brain does not reveal any acute changes. Chest x-ray reveals pulmonary vascular congestion consistent with pulmonary edema. Arterial blood gas on presentation: pH 7.12, pCO2 74, pO2 466 with a lactate of 6.6. Current arterial blood gas reveals a pH of 7.33, pCO2 51, pO2 89 with a lactate of 1.2. IMPRESSION: A 58-year-old white female status post cardiopulmonary arrest. The patient has been resuscitated but is currently poorly responsive. RECOMMENDATIONS: 1. Continue full ventilatory support. 2. Continue vasopressors for hemodynamic shock. 3. Agree with broad spectrum antibiotics pending results of culture data. 4. Routine deep venous thrombosis prophylaxis. 5. Routine gastric acid suppression. 6. Overall prognosis appears guarded. Time spent in critical care 1 hour. cc: Jossue Alvarado MD
[2018-11-25] MEDS ORDERED: D50W SYRINGE IV ONE (20:23)
[2018-11-26] MEDS: PROTONIX IV SCH ×2 (00:27→10:56)
[2018-11-26] MEDS: NS 1,000 ML IV SCH ×2 (01:15→09:18)
[2018-11-26] MEDS: ZOSYN 3.375 GM in NS 50 ML IV SCH ×5 (01:15→18:05)
[2018-11-26] MEDS: DIPRIVAN 1% 1,000 MG/100 ML BOTTLE IV SCH ×5 (02:51→22:34)
[2018-11-26 04:48] LABS: ALLEN TEST YES; BE 0.5 mmoll (-3.0-3.0); BLOOD TYPE ARTERIAL; HCO3-(ACT) 25.3 mmoll (20.0-26.0); METHB 1.6 % (0.0-1.5); O2(CT) 13.6 mL/dL (15.0-23.0); O2HB 95.5 % (95.0-99.0); PCO2(98.6) 45 mmHg (35-45); PO2(98.6) 147 mmHg (60-100); SAMPLE BLOOD; SAO2 97.6 % (95.0-100.0); SRATE 20 BPM; THB 9.9 g/dL (11.5-17.4); TVOL 500 mL; pH(98.6) 7.37 (7.35-7.45)
[2018-11-26 04:49] LABS: MODALITY VENTILATOR
[2018-11-26 04:50] LABS: BASO# 0.04 X1000 (0.0-0.2); BASO% 0.7 % (0.0-0.8); EOS# 0.05 X1000 (0.0-0.7); EOS% 0.9 % (0.0-10.0); HEMATOCRIT 28.5 % (37.0-47.0); HEMOGLOBIN 8.6 g/dL (12.0-16.0); IMM GRAN# 0.02 X1000 (0.0-0.04); IMM GRAN% 0.4 % (0.0-0.5); LYMPH# 1.05 X1000 (1.2-3.4); MCHC 30.2 g/dL (33-37); MCV 102.9 FL (81-99); MONO# 0.47 X1000 (0.11-0.59); MONO% 8.5 % (1.7-9.3); MPV 12.1 FL (7.4-10.4); NEUT# 3.89 X1000 (1.4-6.5); NEUT% 70.5 % (42.2-75.2); PLT 147 X1000 (130-400); RBC 2.77 XMIL (4.2-5.4); RDW 18.7 % (11.5-14.5); WBC 5.52 X1000 (4.8-10.8)
[2018-11-26 05:17] LABS: ALB/GLOB RATIO 1.1; ALBUMIN 2.9 g/dL (3.5-5.0); CALCIUM 7.1 mg/dL (8.8-10.2); POTASSIUM 3.4 mmol/L (3.5-5.1); TOTAL BILIRUBIN 0.19 mg/dL (0.20-1.00); TOTAL PROTEIN 5.5 g/dL (6.3-8.3)
--- NOTE | 2018-11-26 07:12 | Diag Imaging Result Doc PS360 ---
EXAM: CHEST-PORTABLE 11/26/2018 HISTORY: vent evaluation TECHNIQUE: AP portable at 0525 COMMENT: There is an endotracheal tube with its tip at the thoracic inlet and an NG tube with tip below the diaphragm. The inspiration is slightly suboptimal. There is increased interstitial markings. There has been some slight improvement since the previous study of 11/25/2018 with regard to the interstitial opacities. IMPRESSION: Minimal improvement in pulmonary edema. Electronically signed by Dick Coronado 11/26/2018 7:10 AM
[2018-11-26] MEDS: TEFLARO 600 MG in NS 250 ML IV SCH ×2 (09:18→20:50)
[2018-11-26] MEDS: SOLU-MEDROL IV SCH ×2 (10:32→18:05)
[2018-11-26] MEDS: D5W 1,000 ML IV SCH (10:33)
[2018-11-26] MEDS: LASIX IV SCH ×2 (10:33→18:05)
[2018-11-26] MEDS: DUONEB (A & A) INH SCH ×4 (11:19→23:20)
--- NOTE | 2018-11-26 11:19 | PULMONOLOGY PROGRESS NOTE ---
DATE: 11/26/2018 SUBJECTIVE: The patient is now arousable to alert. She will track the practitioner during evaluation. OBJECTIVE: Vital signs: The patient is now off vasopressors. Blood pressure 134/74, heart rate 70, respiratory rate 21, oxygen saturation 100% on mechanical ventilation. The maximum temperature for the last 24 hours was 101.1 degrees yesterday at 1600. HEENT: Pupils are equal and reactive. Oropharynx is clear. Neck: Appears supple. Chest: Reveals prolonged expiratory phase with diffuse wheezing. Cardiac: Regular rate, normal S1, normal S2. Abdomen: Soft with diminished bowel sounds. Extremities: Reveal bruising which appears to be old. LABORATORIES: Chest x-ray reveals slight decrease in pulmonary edema. Sputum culture is pending. Blood cultures are negative to date. White blood count 5.52, hemoglobin 8.6, platelet count 147,000. Sodium 146, potassium 3.4, chloride 110, bicarbonate 19, BUN 19, creatinine 1.0. AST 493, ALT 383. Arterial blood gas reveals a pH of 7.37, pCO2 of 45, pO2 of 147. IMPRESSION: A 58-year-old with COPD, status post cardiopulmonary arrest, hemodynamic shock, acute hypoxemic and acute hypercapnic respiratory failure. The patient's vasopressors have been weaned. Her mental status has improved. She continues to have significant bronchospasm and she failed a spontaneous breathing trial. RECOMMENDATION: 1. Continue mechanical ventilation for hypoxemic and hypercapnic respiratory failure. 2. Initiate steroids and nebulizer treatments for ongoing bronchospasm. 3. Discontinue normal saline and initiate D5W for hypernatremia. 4. Continue deep vein thrombosis prophylaxis. 5. Continue gastric acid suppression. 6. Attempt tube feeding initiation. 7. Overall prognosis is guarded. Time spent in critical care 30+ minutes. cc: Jossue Alvarado MD
[2018-11-26] MEDS: LOVENOX SUBQ SCH (13:07)
[2018-11-27] MEDS: ZOSYN 3.375 GM in NS 50 ML IV SCH ×5 (00:33→23:54)
[2018-11-27] MEDS: PROTONIX IV SCH ×3 (00:33→23:55)
[2018-11-27] MEDS: DIPRIVAN 1% 1,000 MG/100 ML BOTTLE IV SCH ×3 (01:27→09:14)
[2018-11-27] MEDS: SOLU-MEDROL IV SCH ×3 (01:28→17:17)
[2018-11-27] MEDS: LASIX IV SCH (01:28)
[2018-11-27 01:43] LABS: AGAP 15; BUN 15 mg/dL (8-22); CALCIUM 8.1 mg/dL (8.8-10.2); CHLORIDE 100 mmol/L (98-107); COSMO 295; CREATININE 0.9 mg/dL (0.5-0.9); ESTIMATED GFR > 60; GLUCOSE 190 mg/dL (70-104); MAGNESIUM 1.8 mg/dL (1.5-2.7); SODIUM 145 mmol/L (136-145); TCO2 30 mmol/L (25-35)
[2018-11-27 01:44] LABS: POTASSIUM 2.2 mmol/L (3.5-5.1)
[2018-11-27] MEDS ORDERED: POTASSIUM CHLORIDE 20% LIQUID PO ONE (01:46)
[2018-11-27] MEDS ORDERED: POTASSIUM CHLORIDE 20 MEQ/SWI 20 MEQ/100 ML IVPB IV SCH (02:00)
[2018-11-27] MEDS: POTASSIUM CHLORIDE 20 MEQ/SWI 20 MEQ/100 ML IVPB IV SCH ×3 (02:13→06:38)
[2018-11-27] MEDS ORDERED: CALMOSEPTINE OINTMENT TOP PRN (02:15)
[2018-11-27] MEDS: D5W 1,000 ML IV SCH ×3 (02:25→18:03)
[2018-11-27] MEDS: DUONEB (A & A) INH SCH ×6 (03:05→23:36)
--- NOTE | 2018-11-27 04:29 | PROGRESS NOTE ---
DATE: 11/26/2018 SUBJECTIVE: The patient currently is sedated and intubated. She is noted to be moving around. Does respond to noxious stimuli. PHYSICAL EXAMINATION: Vital Signs: She is currently afebrile, pulse 60s-70s, respiratory rate 20- 25, BP 128/68. General: The patient is currently on mechanical ventilation. HEENT: Normocephalic and atraumatic. She is currently intubated. Neck: Supple. No JVD. Cardiovascular: Regular rate. No murmurs. Chest: Clear. No crackles, no wheezing. Abdomen: Soft, nondistended. Extremities: Moves all extremities, before she was. She has no edema. Good pulses distally. Neurologic: Unable to be assessed. ASSESSMENT: 1. Acute respiratory failure. Currently on mechanical ventilation. She was on Lasix yesterday. This was held. Currently does not appear to need Lasix today. 2. Acute hepatitis, likely secondary to hypoxic insult. 3. Polysubstance abuse and overdose. 4. Chronic obstructive pulmonary disease. PLAN: We will continue Teflaro, dopamine, and Zosyn. Her renal function is back to her baseline. Therefore, she does not need any followup regarding this. Her liver functions, thankfully, have improved. Both AST and ALT are better. We will continue to monitor. Greater than 30 minutes were spent in total care today. cc: Bolivar Blank MD
[2018-11-27 04:57] LABS: ALLEN TEST YES; BE 12.8 mmoll (-3.0-3.0); BLOOD TYPE ARTERIAL; HCO3-(ACT) 34.9 mmoll (20.0-26.0); METHB 1.4 % (0.0-1.5); O2(CT) 12.8 mL/dL (15.0-23.0); O2HB 93.3 % (95.0-99.0); PCO2(98.6) 37 mmHg (35-45); PO2(98.6) 63 mmHg (60-100); SAMPLE BLOOD; SAO2 95.2 % (95.0-100.0); SRATE 12 BPM; THB 9.7 g/dL (11.5-17.4); TVOL 600 mL
[2018-11-27 04:59] LABS: MODALITY VENTILATOR; pH(98.6) 7.59 (7.35-7.45)
[2018-11-27 06:03] LABS: HEMOGLOBIN 9.2 g/dL (12.0-16.0); LYMPH# 0.33 X1000 (1.2-3.4); LYMPH% 7.2 % (20.5-51.1); MCH 30.7 PG (27-31); MCHC 30.7 g/dL (33-37); MONO# 0.12 X1000 (0.11-0.59); MONO% 2.6 % (1.7-9.3); MPV 12.1 FL (7.4-10.4); NEUT# 4.11 X1000 (1.4-6.5); NEUT% 90.2 % (42.2-75.2); PLT 213 X1000 (130-400); RDW 18.1 % (11.5-14.5); WBC 4.56 X1000 (4.8-10.8)
[2018-11-27 06:19] LABS: ALB/GLOB RATIO 1.1; ALBUMIN 3.3 g/dL (3.5-5.0); POTASSIUM 2.7 mmol/L (3.5-5.1); TOTAL BILIRUBIN 0.39 mg/dL (0.20-1.00); TOTAL PROTEIN 6.2 g/dL (6.3-8.3)
[2018-11-27 06:21] LABS: MAGNESIUM 1.6 mg/dL (1.5-2.7)
[2018-11-27 06:35] LABS: LYMPHS 6 % (21-51); MONO 1 % (1-9); SEGS 93 % (42-75)
--- NOTE | 2018-11-27 06:53 | Diag Imaging Result Doc PS360 ---
EXAM: CHEST-PORTABLE HISTORY: vent evaluation TECHNIQUE: Portable chest, single view COMPARISON: 11/26/2018 FINDINGS: Endotracheal and nasogastric tubes remain in good position. The lungs are well expanded. No cardiomegaly. Mild vascular distention. No pleural effusions identified. IMPRESSION: Stable chest. Electronically signed by Dwayne Newsome 11/27/2018 6:50 AM
[2018-11-27] MEDS: TEFLARO 600 MG in NS 250 ML IV SCH ×2 (09:14→21:16)
[2018-11-27] MEDS ORDERED: POTASSIUM PHOSPHATE 40 MMOL in NS 250 ML IV ONE (10:00)
--- NOTE | 2018-11-27 10:03 | PULMONOLOGY PROGRESS NOTE ---
DATE: 11/27/2018 SUBJECTIVE: The patient is on sedation vacation. She is awake, alert. She follows commands. OBJECTIVE: Maximum temperature in the last 24 hours 100.6 degrees. Vital Signs: Blood pressure 127/69, heart rate 69, respiratory rate 13, oxygen saturation 100%. HEENT: Pupils are equal and reactive. Oropharynx is clear. Neck is supple. Chest reveals better air flow with decreased wheezing compared to yesterday. Scattered rhonchi persists. Cardiac exam: S1-S2: Abdomen is soft. Good bowel sounds. Extremities are without significant edema. LABORATORIES: Chest x-ray reveals mild vascular congestion but, otherwise, unchanged. No change from 11/26/2018. White blood count 4.56, hemoglobin 9.2, platelet count 213,000. Sodium 145, potassium 2.7, chloride 99, bicarbonate 30. BUN 14, creatinine 1.0. Magnesium 1.6. Phosphorus 1.0. Arterial blood gas: pH 7.59, pCO2 of 37, PO2 of 63 on mechanical ventilation. IMPRESSION: A 58-year-old with severe COPD, status post cardiopulmonary arrest, hemodynamic shock, acute hypoxemic and acute hypercapnic respiratory failure. Clinically, she is improving. She was following commands. Her respiratory exam has improved. PLAN: 1. Initiate spontaneous breathing trial this morning. 2. Replaced low phosphorus. The patient likely is having a component of the refeeding syndrome. 3. Continue steroids and bronchodilators. 4. Continue D5W for mild hypernatremia. 5. Continue deep venous thrombosis prophylaxis and gastric acid suppression. 6. Prognosis is guarded. TIME SPENT IN CRITICAL CARE: 30+ minutes. cc: Jossue Alvarado MD
[2018-11-27 10:13] LABS: ALLEN TEST YES; BE 7.2 mmoll (-3.0-3.0); BLOOD TYPE ARTERIAL; HCO3-(ACT) 30.5 mmoll (20.0-26.0); METHB 1.2 % (0.0-1.5); O2(CT) 12.6 mL/dL (15.0-23.0); O2HB 93.6 % (95.0-99.0); PCO2(98.6) 46 mmHg (35-45); PO2(98.6) 73 mmHg (60-100); SAMPLE BLOOD; SAO2 95.6 % (95.0-100.0); THB 9.5 g/dL (11.5-17.4); pH(98.6) 7.45 (7.35-7.45)
[2018-11-27 10:15] LABS: MODALITY VENTILATOR
--- NOTE | 2018-11-27 11:21 | EKG Report ---
Test Performed on : 11/26/2018 11:57:05 PM Test Reason : ICU 3. No order in [place] Blood Pressure : / mmHG Vent. Rate : 066 BPM Atrial Rate : 066 BPM P-R Int : 130 ms QRS Dur : 092 ms QT Int : 406 ms P-R-T Axes : 000 061 026 degrees QTc Int : 425 ms Sinus rhythm. with intermittent IVCD Nonspecific ST abnormality U-waves present, consider hypokalemia Abnormal ECG When compared with ECG of 24-NOV-2018 20:55, (Unconfirmed) premature ventricular complexes. are no longer present premature supraventricular complexes. are no longer present Vent. rate has decreased BY 95 BPM Right bundle branch block is no longer present Confirmed by Flavio GARCIA, Vaughn Nix ([id number]) on 11/27/2018 7:20:04 PM
[2018-11-27] MEDS: POTASSIUM CHLORIDE 60 MEQ in NS 500 ML IV SCH ×2 (11:47→18:09)
[2018-11-27] MEDS: OFIRMEV 1000 MG/ISOTONIC SOLN 1,000 MG/100 ML BOTTLE IV PRN ×2 (11:47→22:49)
--- NOTE | 2018-11-27 12:21 | PROGRESS NOTE ---
DATE: 11/27/2018 SUBJECTIVE: Patient has been successfully extubated a half an hour ago. When I went to see this patient and check how she was doing, the first thing that she asked me was for pain medication. I explained to her that the reason why she was intubated was because apparently there has been an accidental overdose and I explained to her that other labs like extremely low potassium and phosphorus has been low, but she said that she does not care about it and she needs to have just pain medication, at least morphine. OBJECTIVE: Vital Signs: Temperature was 100.2 degrees, heart rate 84, respiratory rate 19, blood pressure 130/84, O2 saturation 95% on Ventimask at 50%. General Examination: This is a chronically ill-looking, 58-year-old female lying in bed, in no acute distress. HEENT: Head is normocephalic, atraumatic. Mucous membranes dry. Neck: No JVD noted. No carotid bruits. No lymphadenopathy. No thyromegaly. Cardiovascular: S1, S2 heard. No murmurs, gallops, or rubs. Regular rate and rhythm. Respiratory: Coarse breath sounds noted in both pulmonary bases. Patient is not using any accessory muscles or having work of breathing. Abdomen: Soft. Nontender to palpation. Bowel sounds present. No organomegaly. Extremities: No clubbing, cyanosis, or edema. Peripheral pulses present in both legs. Neurological: Patient is sleepier. Moves 4 extremities spontaneously. IMAGING: X-ray from this morning showed a stable chest with mild vascular congestion. No pleural effusion identified. LABORATORY DATA: White cell count 4.56, hemoglobin 9.2, hematocrit 30.0, platelets 213,000. ABG shows pH 7.45, pCO2 46, PO2 73. Potassium 2.2, phosphorus 1.1, ALT 199, AST 302. ASSESSMENT AND PLAN: 1. Acute respiratory failure secondary to drug overdose. The patient is unable to provide to me information about how this drug overdose happened. She has been admitted to the hospital for the same problem, drug overdose, in our hospital on October 28, 2018 and September 10, 2018 and my biggest concern is as soon as she has been extubated she started requesting pain medication, reporting that she is hurting all over. I checked [place] prescription drug monitoring program and she has been given on October 27, 2018 60 tablets of [place] 7.5 and also lorazepam 0.5 mg, 30 tablets as well. The initial UDS is positive for opiates but also for oxycodone which has not been prescribed to her which makes me more concerned about opiate abuse. At this point, I mentioned to her that at least during this 12 hours after extubation I do not want give her any opiates considering her poor respiratory status and the fact that she may need to be intubated if she starts breathing slowly, but she mentioned that she does not care and she wants to have her pain medication anyway. Of course, I am not going to start any opiates at this time and definitely whenever she is more awake and alert we may restart her opiate medication, but we need to refer her to a program to try to help her to detox from opiates. 2. Shock liver. Liver enzymes are getting slowly better. We will continue to monitor CMP daily. 3. Polysubstance abuse. As we mentioned above. 4. Chronic obstructive pulmonary disease. Patient is on DuoNeb every 4 hours. Also is on Solu- Medrol 60 mg IV q.[address] Alvarado. Will continue to monitor. 5. Hypertension. Patient has been on vasopressors but not anymore. Blood pressure is within normal limits. We will continue to monitor. 6. Disposition. At this point, we will continue to monitor this patient 1 more day in the intensive care unit. We will start physical therapy. We will continue with Tylenol IV for pain management. If she continues to improve, tomorrow she can be moved to a regular room. cc: Drew Handy MD MTDD
[2018-11-27] MEDS: LOVENOX SUBQ SCH (14:34)
[2018-11-27] MEDS: NEUTRA-PHOS GT SCH ×3 (14:34→21:16)
[2018-11-27 20:03] LABS: PCO2(98.6) 51 mmHg (35-45)
[2018-11-28] MEDS: SOLU-MEDROL IV SCH ×3 (02:29→21:37)
[2018-11-28] MEDS: DUONEB (A & A) INH SCH ×6 (03:21→23:05)
[2018-11-28 04:24] LABS: ALLEN TEST YES; BLOOD TYPE ARTERIAL; HCO3-(ACT) 29.6 mmoll (20.0-26.0); METHB 1.4 % (0.0-1.5); MODALITY VENTIMASK; O2(CT) 11.1 mL/dL (15.0-23.0); O2HB 95.7 % (95.0-99.0); PCO2(98.6) 44 mmHg (35-45); PO2(98.6) 93 mmHg (60-100); SAMPLE BLOOD; SAO2 98.2 % (95.0-100.0); THB 8.1 g/dL (11.5-17.4); pH(98.6) 7.45 (7.35-7.45)
[2018-11-28 04:59] LABS: HEMATOCRIT 27.7 % (37.0-47.0); HEMOGLOBIN 8.5 g/dL (12.0-16.0); IMM GRAN# 0.04 X1000 (0.0-0.04); IMM GRAN% 0.4 % (0.0-0.5); LYMPH% 5.1 % (20.5-51.1); MCH 31.1 PG (27-31); MCHC 30.7 g/dL (33-37); MCV 101.5 FL (81-99); MONO# 0.61 X1000 (0.11-0.59); MONO% 6.2 % (1.7-9.3); MPV 12.1 FL (7.4-10.4); NEUT# 8.66 X1000 (1.4-6.5); NEUT% 88.3 % (42.2-75.2); PLT 217 X1000 (130-400); RBC 2.73 XMIL (4.2-5.4); RDW 18.8 % (11.5-14.5); WBC 9.81 X1000 (4.8-10.8)
[2018-11-28 05:19] LABS: AGAP 13; ALBUMIN 3.1 g/dL (3.5-5.0); ALKALINE PHOSPHATASE 62 U/L (32-104); BUN 13 mg/dL (8-22); CHLORIDE 105 mmol/L (98-107); COSMO 285; CREATININE 0.9 mg/dL (0.5-0.9); ESTIMATED GFR > 60; GLUCOSE 134 mg/dL (70-104); GOT 113 U/L (10-30); GPT 224 U/L (10-36); PHOSPHORUS 3.1 mg/dL (2.7-4.5); POTASSIUM 4.5 mmol/L (3.5-5.1); SODIUM 142 mmol/L (136-145); TCO2 24 mmol/L (25-35); TOTAL PROTEIN 5.7 g/dL (6.3-8.3)
[2018-11-28] MEDS: OFIRMEV 1000 MG/ISOTONIC SOLN 1,000 MG/100 ML BOTTLE IV PRN (05:33)
[2018-11-28] MEDS: ZOSYN 3.375 GM in NS 50 ML IV SCH ×3 (05:33→17:49)
--- NOTE | 2018-11-28 06:39 | Diag Imaging Result Doc PS360 ---
EXAM: CHEST-PORTABLE HISTORY: vent evaluation TECHNIQUE: Portable chest single view COMPARISON: 11/27/2018 FINDINGS: The endotracheal and nasogastric tubes have been removed. The lungs are well expanded. The heart is borderline mildly prominent and there is mild central vascular distention. Increased right apical density. No pleural effusions identified. IMPRESSION: Mild pulmonary edema. Recent CT showed soft tissue prominence stable from September 2016. Electronically signed by Dwayne Newsome 11/28/2018 6:36 AM
[2018-11-28 07:12] LABS: ANISOCYTOSIS 1+; LYMPHS 5 % (21-51); MONO 3 % (1-9); SEGS 92 % (42-75)
[2018-11-28] MEDS: D5W 1,000 ML IV SCH ×2 (07:12→21:36)
[2018-11-28] MEDS: TEFLARO 600 MG in NS 250 ML IV SCH ×2 (09:42→21:37)
[2018-11-28] MEDS: NEUTRA-PHOS GT SCH ×4 (09:42→21:37)
[2018-11-28] MEDS: MORPHINE IV PRN ×3 (09:43→21:45)
[2018-11-28] MEDS: PROTONIX IV SCH ×3 (11:18→23:59)
--- NOTE | 2018-11-28 12:00 | PROGRESS NOTE ---
DATE: 11/28/2018 SUBJECTIVE: Patient is definitely more alert and awake. She complains of diffuse diarrhea that I think is most likely related to opiate withdrawal. No other issues noted as per nursing staff. OBJECTIVE: Vital Signs: Temperature 99.8, heart rate 84, respiratory rate 18, blood pressure 165/91, O2 saturation 96% on 5 L nasal cannula. General Examination: This is a chronically ill- looking, 58-year-old female, lying in bed in no acute distress. HEENT: Head is normocephalic, atraumatic. Neck: No JVD noted. No carotid bruits. No lymphadenopathy. No thyromegaly. Cardiovascular exam: S1, S2 heard. No murmurs, gallops, or rubs. Regular rate and rhythm. Respiratory exam: Coarse breath sounds noted in both pulmonary mathur, as well as some wheezing. Patient is not using any accessory muscles or having work of breathing. Abdomen: Soft, nontender to palpation. Bowel sounds present. No organomegaly. Extremities: No clubbing, cyanosis, or edema. Peripheral pulses present in both legs. Neurological exam: Patient is alert and oriented x3. Moves 4 extremities. LABORATORY DATA: White cell count 9.81, hemoglobin 8.5, hematocrit 37.7, platelets 217. Arterial blood gas that shows pH 7.45, pCO2 44, PO2 93. Normal BMP with potassium 4.5, chloride 3.1. ASSESSMENT AND PLAN: 1. Acute respiratory failure secondary to drug overdose. At this point, the patient reports that it was an accidental overdose that happened to her. She was taking Percocet that apparently she is [facility] [place]. I ran the prescription drug monitoring program yesterday and I did not find any recent prescription for Percocet. In any case, we are going to provide morphine 2 mg intravenous every 4 hours as needed for pain. That will definitely help with the diarrhea. We will transfer her to a regular floor. 2. Shock liver. Liver enzymes continue to improve. We will continue to monitor comprehensive metabolic panel. 3. Polysubstance abuse as we mentioned above. 4. Chronic obstructive pulmonary disease. The patient is on DuoNeb every 4 hours. Also, she has been started on Solu-Medrol 60 mg intravenous every 8 hours. We are going to decrease the dose to 40 mg intravenous every 12 hours. We will continue to monitor this patient closely. 5. Hypertension. Blood pressure is within normal limits. Does not requiring any vasopressors. We will continue to monitor. 6. Disposition: At this point, the patient is going to be transferred to a regular room. The patient is going to be working with physical therapy. cc: Drew Handy MD
[2018-11-28] MEDS: LOVENOX SUBQ SCH (13:04)
[2018-11-29] MEDS: ZOSYN 3.375 GM in NS 50 ML IV SCH ×4 (00:21→18:09)
[2018-11-29] MEDS: DUONEB (A & A) INH SCH ×7 (03:05→23:15)
[2018-11-29 05:36] LABS: ALLEN TEST YES; BE 6.2 mmoll (-3.0-3.0); BLOOD TYPE ARTERIAL; HCO3-(ACT) 29.7 mmoll (20.0-26.0); METHB 1.1 % (0.0-1.5); O2HB 94.6 % (95.0-99.0); PCO2(98.6) 50 mmHg (35-45); PO2(98.6) 80 mmHg (60-100); SAMPLE BLOOD; SAO2 96.8 % (95.0-100.0); THB 8.9 g/dL (11.5-17.4); pH(98.6) 7.41 (7.35-7.45)
[2018-11-29 05:37] LABS: MODALITY CANNULA
--- NOTE | 2018-11-29 07:01 | Diag Imaging Result Doc PS360 ---
EXAM: CHEST-PORTABLE 11/29/2018 HISTORY: vent evaluation TECHNIQUE: AP portable at 0614 COMMENT: There is mildly increased interstitial opacity bilaterally. The heart size is at the upper limits of normal. Compared to the previous study of 11/28/2018 there has been no significant change. IMPRESSION: Mild pulmonary edema. Electronically signed by Dick Coronado 11/29/2018 6:59 AM
[2018-11-29 07:57] LABS: EOS# 0.01 X1000 (0.0-0.7); EOS% 0.1 % (0.0-10.0); HEMATOCRIT 28.7 % (37.0-47.0); HEMOGLOBIN 8.5 g/dL (12.0-16.0); IMM GRAN# 0.09 X1000 (0.0-0.04); LYMPH# 0.61 X1000 (1.2-3.4); LYMPH% 6.7 % (20.5-51.1); MCH 30.2 PG (27-31); MCHC 29.6 g/dL (33-37); MCV 102.1 FL (81-99); MONO# 0.54 X1000 (0.11-0.59); MONO% 5.9 % (1.7-9.3); MPV 11.4 FL (7.4-10.4); NEUT# 7.87 X1000 (1.4-6.5); NEUT% 86.3 % (42.2-75.2); PLT 212 X1000 (130-400); RBC 2.81 XMIL (4.2-5.4); RDW 18.1 % (11.5-14.5); WBC 9.12 X1000 (4.8-10.8)
[2018-11-29 08:20] LABS: BANDS 2 % (0-1); LYMPHS 8 % (21-51); SEGS 90 % (42-75)
[2018-11-29 08:34] LABS: AGAP 9; ALB/GLOB RATIO 1.5; ALBUMIN 3.2 g/dL (3.5-5.0); ALKALINE PHOSPHATASE 53 U/L (32-104); BUN 17 mg/dL (8-22); CALCIUM 8.3 mg/dL (8.8-10.2); CHLORIDE 103 mmol/L (98-107); COSMO 284; CREATININE 0.9 mg/dL (0.5-0.9); ESTIMATED GFR > 60; GLUCOSE 129 mg/dL (70-104); GOT 37 U/L (10-30); GPT 152 U/L (10-36); POTASSIUM 3.7 mmol/L (3.5-5.1); SODIUM 141 mmol/L (136-145); TCO2 29 mmol/L (25-35); TOTAL BILIRUBIN 0.43 mg/dL (0.20-1.00); TOTAL PROTEIN 5.3 g/dL (6.3-8.3)
[2018-11-29] MEDS: TEFLARO 600 MG in NS 250 ML IV SCH ×2 (11:04→22:20)
[2018-11-29] MEDS: NEUTRA-PHOS GT SCH ×4 (11:07→22:19)
[2018-11-29] MEDS: SOLU-MEDROL IV SCH ×2 (11:07→22:19)
[2018-11-29] MEDS ORDERED: LASIX IV ONE (14:47)
[2018-11-29] MEDS: LOVENOX SUBQ SCH (18:13)
[2018-11-29] MEDS: PROTONIX IV SCH ×2 (18:14→22:19)
[2018-11-29] MEDS: VANCOMYCIN ORAL SOLN PO SCH ×2 (18:20→22:18)
[2018-11-29] MEDS: XANAX PO SCH ×2 (18:20→22:20)
[2018-11-29] MEDS: D5W 1,000 ML IV SCH (18:25)
--- NOTE | 2018-11-29 22:07 | PROGRESS NOTE ---
DATE: 11/29/2018 SUBJECTIVE: Patient, according to the nursing staff and also under my examination, is a little bit more confused and short of breath. Denies any chest pain. Continue with diarrhea. No blood in it. OBJECTIVE: Vital Signs: Temperature 98.1, heart rate 81, respiratory rate 23, blood pressure 175/87. O2 saturation 94% on BiPAP machine. General: This is a 58-year-old female lying in bed in no acute distress. HEENT: Head is normocephalic and atraumatic. Neck: No JVD noted. No carotid bruits. No lymphadenopathy. Cardiovascular: S1, S2 heard. No murmurs, gallops, or rubs. Regular rate and rhythm. Respiratory: Coarse breath sounds still present, noted in both pulmonary mathur with crackles as well. The patient is not using any accessory muscles or having work of breathing. Abdomen is soft, nontender to palpation. Bowel sounds present. No organomegaly. Extremities: No clubbing, cyanosis, or edema. Peripheral pulses present in both legs. Neurological: Patient is a little bit more lethargic but moves 4 extremities. Able to have coherent conversation. LABORATORY DATA: White cell count 9.1, hemoglobin 10.5, hematocrit 28.7, platelets 212,000. ABG shows pH of 7.41 with pCO2 of 50. PO2 of 80. Normal BMP with normal phosphorus. ASSESSMENT AND PLAN: 1. Acute respiratory failure secondary to drug overdose. Patient reports shortness of breath, and the x-ray from today shows pulmonary edema. At this point, we will provide 1 dose of 80 mg of Lasix IV, and then we will continue with 40 IV q.12 hours and see how this patient does. Initially, the reason why this patient developed acute respiratory failure was pain medication overdose. At this point, the patient is using BiPAP to help with ventilation and oxygenation/ we will continue to monitor this patient closely. 2. Shock liver; getting better. Will continue to improve. 3. Chronic obstructive pulmonary disease. Patient is on DuoNeb every 4 hours. Also, the patient is on Solu-Medrol 40 mg q.12 hours. We will continue with the same management. 4. Hypertension. Blood pressure is a little bit elevated. We will continue to monitor. She has been on vasopressors when she came in. DISPOSITION: At this point, what I am going to do is to provide Lasix, continue with BiPAP and see if that helps. cc: Drew Handy MD
[2018-11-29] MEDS: LASIX IV SCH (22:19)
[2018-11-30] MEDS: D5W 1,000 ML IV SCH ×2 (01:01→13:11)
[2018-11-30] MEDS: PROTONIX IV SCH ×3 (01:01→20:56)
[2018-11-30] MEDS: ZOSYN 3.375 GM in NS 50 ML IV SCH ×5 (01:03→21:10)
[2018-11-30] MEDS: XANAX PO SCH ×5 (03:13→20:56)
[2018-11-30] MEDS: VANCOMYCIN ORAL SOLN PO SCH ×4 (03:13→20:57)
[2018-11-30] MEDS: DUONEB (A & A) INH SCH ×6 (03:48→22:50)
[2018-11-30 05:56] LABS: ALLEN TEST YES; BE 15.5 mmoll (-3.0-3.0); BLOOD TYPE ARTERIAL; HCO3-(ACT) 36.8 mmoll (20.0-26.0); O2(CT) 17.3 mL/dL (15.0-23.0); O2HB 90.9 % (95.0-99.0); PO2(98.6) 65 mmHg (60-100); SAMPLE BLOOD; SAO2 93.3 % (95.0-100.0); THB 13.5 g/dL (11.5-17.4); pH(98.6) 7.41 (7.35-7.45)
[2018-11-30 05:58] LABS: MODALITY VENTIMASK; PCO2(98.6) 69 mmHg (35-45)
[2018-11-30 07:26] LABS: BASO# 0.01 X1000 (0.0-0.2); BASO% 0.1 % (0.0-0.8); HEMATOCRIT 35.6 % (37.0-47.0); IMM GRAN# 0.09 X1000 (0.0-0.04); LYMPH# 0.58 X1000 (1.2-3.4); LYMPH% 6.2 % (20.5-51.1); MCH 30.7 PG (27-31); MCHC 30.9 g/dL (33-37); MCV 99.4 FL (81-99); MONO% 5.3 % (1.7-9.3); MPV 11.9 FL (7.4-10.4); NEUT# 8.23 X1000 (1.4-6.5); NEUT% 87.4 % (42.2-75.2); PLT 259 X1000 (130-400); RBC 3.58 XMIL (4.2-5.4); RDW 17.2 % (11.5-14.5); WBC 9.41 X1000 (4.8-10.8)
[2018-11-30 07:43] LABS: AGAP 9; ALB/GLOB RATIO 1.5; ALBUMIN 3.4 g/dL (3.5-5.0); ALKALINE PHOSPHATASE 57 U/L (32-104); BUN 16 mg/dL (8-22); CALCIUM 8.2 mg/dL (8.8-10.2); CHLORIDE 95 mmol/L (98-107); COSMO 288; CREATININE 0.9 mg/dL (0.5-0.9); ESTIMATED GFR > 60; GLUCOSE 138 mg/dL (70-104); GOT 26 U/L (10-30); GPT 124 U/L (10-36); PHOSPHORUS 3.2 mg/dL (2.7-4.5); POTASSIUM 3.6 mmol/L (3.5-5.1); SODIUM 143 mmol/L (136-145); TCO2 39 mmol/L (25-35); TOTAL PROTEIN 5.7 g/dL (6.3-8.3)
[2018-11-30 07:51] LABS: LYMPHS 8 % (21-51); MONO 2 % (1-9); SEGS 90 % (42-75)
[2018-11-30] MEDS: NEUTRA-PHOS GT SCH ×4 (09:34→20:56)
[2018-11-30] MEDS: SOLU-MEDROL IV SCH ×2 (09:34→20:56)
[2018-11-30] MEDS: LASIX IV SCH ×2 (09:34→20:56)
[2018-11-30] MEDS: LOVENOX SUBQ SCH (13:02)
[2018-11-30] MEDS: MORPHINE IV PRN ×2 (13:12→20:55)
[2018-11-30] MEDS: TEFLARO 600 MG in NS 250 ML IV SCH (17:41)
--- NOTE | 2018-11-30 18:49 | PROGRESS NOTE ---
DATE: 11/30/2018 SUBJECTIVE: Patient continues to complain of pain. Pain is located in the left hip. She is less confused today. Denies any chest pain. She reports having still diarrhea, but less bowel movement than yesterday. OBJECTIVE: Vital Signs: Temperature 97.8, heart rate 79, respiratory rate 16, blood pressure 120/75, O2 sat 97% on Venturi mask at 50%. General: This is a chronically ill-looking, 58-year- old female lying in bed, in no acute distress. HEENT: Head is normocephalic, atraumatic. Mucous membranes dry. Neck: No JVD noted. No carotid bruits. No lymphadenopathy. Cardiovascular: S1, S2 heard. No murmurs, gallops or rubs. Regular rate and rhythm. Respiratory: Coarse breath sounds still present in both pulmonary mathur with crackles as well, but mostly noted in both bases. Patient is not using any accessory muscles or having work of breathing. Abdomen: Soft, nontender to palpation. Bowel sounds present. No organomegaly. Extremities: No clubbing, cyanosis or edema. Peripheral pulses present in both legs. Neurologic: Patient is a little bit more awake. Moves 4 extremities. LABORATORY DATA: White cell count 9.41, hemoglobin 11.0, hematocrit 35.6, platelets 259,000. ABG shows pH 7.41, pCO2 69. BMP unremarkable. Phosphorus is normal at 3.2. ASSESSMENT AND PLAN: 1. Acute respiratory failure secondary to drug overdose. At this point, patient is not complaining of any shortness of breath. The x-ray from yesterday showed pulmonary edema, so we started Lasix in this patient 40 mg IV q.12 hours. Clinically, she is feeling less short of breath. She is still requiring Ventimask. We have checked an ABG that shows elevation of the CO2 in this case from 50 to 69, which I think is secondary to use of benzodiazepines. Patient was very anxious yesterday and she was begging for anxiety medication despite. I explained for almost 5 minutes the drawbacks for using benzodiazepines or opiates in an acute respiratory failure. At this point, I informed the patient again that I cannot provide more pain medication that she is receiving in this case, morphine 2 mg q.4 hours p.r.n. At this time she is not using BiPAP anymore but is using Ventimask. Will continue to monitor this patient closely. 2. Shock liver. Definitely enzymes are getting better. We will continue to monitor. 3. Chronic obstructive pulmonary disease. Patient is on DuoNeb every 4 hours, Solu-Medrol 40 mg IV q.12 hours. We will continue with the same management. 4. Hypertension. Blood pressure is under control in the range of 120s and 154. Will continue to monitor this patient closely. 5. Disposition: At this point we will continue with Lasix, will continue with Ventimask. Will continue to explain to this patient that she cannot get all the pain medication that she thinks she needs on all the anxiety medication that she thinks she needs. cc: Drew Handy MD
[2018-12-01] MEDS: MORPHINE IV PRN ×2 (01:18→05:00)
[2018-12-01] MEDS: PROTONIX IV SCH ×2 (01:41→16:18)
[2018-12-01] MEDS: ZOSYN 3.375 GM in NS 50 ML IV SCH ×4 (02:58→19:01)
[2018-12-01] MEDS: XANAX PO SCH ×4 (02:58→20:48)
[2018-12-01] MEDS: VANCOMYCIN ORAL SOLN PO SCH ×4 (02:58→19:01)
[2018-12-01] MEDS: DUONEB (A & A) INH SCH ×6 (03:10→23:50)
[2018-12-01] MEDS: TEFLARO 600 MG in NS 250 ML IV SCH ×2 (04:54→18:33)
[2018-12-01] MEDS: D5W 1,000 ML IV SCH (04:59)
[2018-12-01 05:11] LABS: ALLEN TEST YES; BE 21.2 mmoll (-3.0-3.0); BLOOD TYPE ARTERIAL; HCO3-(ACT) 41.3 mmoll (20.0-26.0); METHB 1.5 % (0.0-1.5); O2(CT) 15.9 mL/dL (15.0-23.0); O2HB 91.5 % (95.0-99.0); PO2(98.6) 66 mmHg (60-100); SAMPLE BLOOD; SAO2 94.1 % (95.0-100.0); THB 12.3 g/dL (11.5-17.4); pH(98.6) 7.48 (7.35-7.45)
[2018-12-01 05:12] LABS: MODALITY VENTIMASK
[2018-12-01 05:13] LABS: PCO2(98.6) 65 mmHg (35-45)
[2018-12-01 07:26] LABS: BASO# 0.02 X1000 (0.0-0.2); BASO% 0.2 % (0.0-0.8); EOS# 0.03 X1000 (0.0-0.7); EOS% 0.3 % (0.0-10.0); HEMATOCRIT 37.1 % (37.0-47.0); HEMOGLOBIN 11.5 g/dL (12.0-16.0); IMM GRAN# 0.11 X1000 (0.0-0.04); IMM GRAN% 0.9 % (0.0-0.5); LYMPH# 0.65 X1000 (1.2-3.4); LYMPH% 5.6 % (20.5-51.1); MCH 30.9 PG (27-31); MCV 99.7 FL (81-99); MONO% 6.9 % (1.7-9.3); MPV 12.2 FL (7.4-10.4); NEUT# 9.99 X1000 (1.4-6.5); NEUT% 86.1 % (42.2-75.2); PLT 264 X1000 (130-400); RBC 3.72 XMIL (4.2-5.4); RDW 16.6 % (11.5-14.5)
[2018-12-01 07:43] LABS: BASO 4 % (0-1); EOS 2 % (1-10); LYMPHS 12 % (21-51); MONO 16 % (1-9); SEGS 66 % (42-75)
[2018-12-01 08:06] LABS: ALB/GLOB RATIO 1.4; ALBUMIN 3.3 g/dL (3.5-5.0); CALCIUM 8.4 mg/dL (8.8-10.2); CREATININE 1.1 mg/dL (0.5-0.9); PHOSPHORUS 3.2 mg/dL (2.7-4.5); POTASSIUM 3.1 mmol/L (3.5-5.1); TOTAL BILIRUBIN 0.44 mg/dL (0.20-1.00); TOTAL PROTEIN 5.6 g/dL (6.3-8.3)
[2018-12-01] MEDS: NEUTRA-PHOS GT SCH ×4 (09:44→20:08)
[2018-12-01] MEDS: LASIX IV SCH ×2 (09:44→20:14)
[2018-12-01] MEDS: SOLU-MEDROL IV SCH ×2 (09:44→20:12)
[2018-12-01] MEDS ORDERED: LASIX IV ONE (09:46)
[2018-12-01] MEDS: NORCO-5 PO PRN ×2 (09:59→16:19)
--- NOTE | 2018-12-01 13:37 | PROGRESS NOTE ---
DATE: 12/01/2018 SUBJECTIVE: Patient continues to complain of pain in the left chest wall. Reports that this patient had not had it before coming to the hospital. Denies any fever or chills. OBJECTIVE: Vital Signs: Temperature 98.2 degrees, heart rate 72, respiratory rate 20, blood pressure 128/72, O2 saturation 99% on non-rebreather at 50 L/minutes. General Examination: This is a chronically ill-looking, 58-year-old female lying in bed, in no acute distress. Cardiovascular: S1, S2 heard. No murmurs, gallops, or rubs. Regular rate and rhythm. Respiratory: Coarse breath sounds still noted in both pulmonary bases with crackles as well, but patient is not using any accessory muscles or having work of breathing. Abdomen: Soft. Nontender to palpation. Bowel sounds present. No organomegaly. Extremities: No clubbing, cyanosis, or edema. Peripheral pulses present in both legs. Neurological: Patient is alert and oriented x3. Moves 4 extremities. LABORATORY DATA: White cell count 11.6, hemoglobin 11.5, hematocrit 37.1, platelets 264,000. ABG shows pH 7.48 with pCO2 65 PO2 66 and BMP shows potassium 3.1, creatinine 1.1. ASSESSMENT AND PLAN: 1. Acute respiratory failure secondary to drug overdose. The patient continues to report pain in the left chest wall. No shortness of breath noted. X-ray from today shows pulmonary edema so patient is on Lasix 40 mg IV q.12 hours. The patient at this point is going to have a CT of the thorax without contrast to evaluate that area that this patient is hurting. CO2 is elevated. We decided to decrease the dose of benzodiazepine and we are going to change morphine for [place], in this case 5 mg p.o. 6 hours p.r.n. We will continue to monitor this patient closely. 2. Shock liver. That condition is getting better. We will continue to monitor. 3. COPD. We will continue with DuoNeb every 4 hours and Solu-Medrol q.12 hours. 4. Hypertension. Blood pressure is under control. We will continue with the same management. 5. Disposition. At this point we will see what the CT of the chest shows. We will definitely need to see this patient requiring less oxygen supplementation in order to transition her to outpatient treatment. cc: Drew Handy MD
--- NOTE | 2018-12-01 13:41 | Diag Imaging Result Doc PS360 ---
CT THORAX W/O CONTRAST - 12/01/2018 INDICATION: left chest pain COMPARISON: 10/28/2018 FINDINGS: There is a trace pericardial effusion. There are small bilateral pleural effusions. There is near complete collapse of the left lower lobe with significant volume loss. There is a stable irregular opacity in the right lung apex, probably some pulmonary scarring. Stable advanced COPD. There is some mucous plugging of segmental airways in the right lower lobe. The left lower lobe airways are actually mostly clear. Bony structures are intact. IMPRESSION: Small pericardial effusion and small bilateral pleural effusions. Newly complete collapse of the left lower lobe. There is some mild mucous plugging in the right lower lobe as well. Advanced COPD. This exam was performed using automated exposure control, adjustment of mA or kV according to patient size, and/or use of iterative reconstruction technique Electronically signed by Devin Russo 12/01/2018 1:39 PM
[2018-12-01] MEDS: LOVENOX SUBQ SCH (16:19)
--- NOTE | 2018-12-02 02:50 | PULMONOLOGY PROGRESS NOTE ---
DATE: 12/01/2018 SUBJECTIVE: The patient has been moved to a private room because of a positive C. difficile antigen but negative toxin back on 11/28/2018. She has not had any bowel movements for the last 48 hours. She does report chest wall pain and is scheduled for a CT scan of the thorax. She has a very poor cough effort. OBJECTIVE: Vital signs: BP 128/72, heart rate 71, respiratory rate 16 oxygen saturation 96% on Venturi mask. HEENT: Pupils are equal and reactive. Oropharynx is clear. NECK: Supple.Chest: Reveals rhonchi bilaterally with poor cough effort and decreased breath sounds in the lung bases. Right left greater than right. Abdomen: Soft. Extremities: Without edema. LABORATORY DATA: White blood count 11.60, hemoglobin 11.5, platelet count 364,000. Arterial blood gas, pH 7.48, pCO2 of 65, PO2 of 66. Sodium 142, potassium 3.1, chloride 90, bicarbonate 41, BUN 20, creatinine 1.1. No new microbiology data. IMPRESSION: The patient is 58-year-old with severe chronic obstructive pulmonary disease, ongoing tobacco use, chronic pain syndrome, with pleuritic chest pain and poor cough effort. The patient has a positive Clostridium difficile antigen, but her toxin was negative and she is having no significant diarrhea. She was extubated last week and clinically is doing well, but she has a very poor cough effort. RECOMMENDATIONS: 1. Continue antibiotics and bronchodilators. 2. Initiate incentive spirometry. 3. Continue DVT prophylaxis and gastric acid suppression. 4. Follow up CT scan report. cc: Jossue Alvarado MD
[2018-12-02] MEDS: ZOSYN 3.375 GM in NS 50 ML IV SCH ×4 (02:58→21:09)
[2018-12-02] MEDS: NORCO-5 PO PRN ×3 (03:24→18:39)
[2018-12-02] MEDS: VANCOMYCIN ORAL SOLN PO SCH ×4 (03:25→21:15)
[2018-12-02] MEDS: DUONEB (A & A) INH SCH ×6 (03:30→23:15)
[2018-12-02] MEDS: XANAX PO SCH ×4 (03:50→21:09)
[2018-12-02] MEDS: PROTONIX IV SCH ×2 (05:49→18:38)
[2018-12-02] MEDS: TEFLARO 600 MG in NS 250 ML IV SCH ×2 (05:52→18:38)
[2018-12-02 06:13] LABS: ALLEN TEST YES; BE 22.4 mmoll (-3.0-3.0); BLOOD TYPE ARTERIAL; HCO3-(ACT) 42.3 mmoll (20.0-26.0); METHB 1.6 % (0.0-1.5); O2(CT) 19.1 mL/dL (15.0-23.0); O2HB 95.5 % (95.0-99.0); PO2(98.6) 135 mmHg (60-100); SAMPLE BLOOD; THB 14.1 g/dL (11.5-17.4)
[2018-12-02 06:14] LABS: MODALITY NRB
[2018-12-02 06:15] LABS: PCO2(98.6) 64 mmHg (35-45)
[2018-12-02 07:38] LABS: BASO# 0.03 X1000 (0.0-0.2); BASO% 0.2 % (0.0-0.8); HEMATOCRIT 40.5 % (37.0-47.0); HEMOGLOBIN 12.5 g/dL (12.0-16.0); IMM GRAN% 1.1 % (0.0-0.5); LYMPH# 1.05 X1000 (1.2-3.4); LYMPH% 5.7 % (20.5-51.1); MCH 30.9 PG (27-31); MCHC 30.9 g/dL (33-37); MCV 100.2 FL (81-99); MONO% 6.5 % (1.7-9.3); MPV 12.1 FL (7.4-10.4); NEUT# 15.92 X1000 (1.4-6.5); NEUT% 86.5 % (42.2-75.2); PLT 312 X1000 (130-400); RBC 4.04 XMIL (4.2-5.4); RDW 16.6 % (11.5-14.5)
[2018-12-02 07:44] LABS: ALB/GLOB RATIO 1.5; ALBUMIN 3.4 g/dL (3.5-5.0); CALCIUM 8.4 mg/dL (8.8-10.2); CREATININE 1.2 mg/dL (0.5-0.9); PHOSPHORUS 4.5 mg/dL (2.7-4.5); TOTAL BILIRUBIN 0.38 mg/dL (0.20-1.00); TOTAL PROTEIN 5.7 g/dL (6.3-8.3)
[2018-12-02 08:00] LABS: LYMPHS 4 % (21-51); MONO 8 % (1-9); SEGS 86 % (42-75)
[2018-12-02] MEDS: SOLU-MEDROL IV SCH ×2 (09:06→21:09)
[2018-12-02] MEDS: LASIX IV SCH ×2 (09:06→21:09)
[2018-12-02] MEDS: NEUTRA-PHOS GT SCH ×4 (09:07→21:09)
[2018-12-02] MEDS: LOVENOX SUBQ SCH (15:58)
--- NOTE | 2018-12-02 17:10 | PROGRESS NOTE ---
DATE: 12/02/2018 SUBJECTIVE: The patient continues to complain of, according to her, severe chest pain in the left chest wall, actually around the caged ribs. Denies any difficulty breathing or significant cough. OBJECTIVE: Vital Signs: Temperature 98.0, heart rate 76, respiratory 15, blood pressure 116/76. O2 saturation 97% on non-rebreather mask at 15 L/minute. General: This is a chronically ill- looking 58-year-old female looking older than her stated age. Lying in bed in no acute distress. HEENT: Head is normocephalic and atraumatic. Mucous membranes dry. Neck: No JVD noted. No carotid bruits. No lymphadenopathy. No thyromegaly. Cardiovascular: S1, S2 heard. No murmurs, gallops, or rubs. Regular rate and rhythm. Respiratory: Breath sounds still noted in both pulmonary bases with some crackles as well. Patient is not using any accessory muscles or having work of breathing. Abdomen is soft, nontender to palpation. Bowel sounds present. No organomegaly. Extremities: No clubbing, cyanosis, or edema. Peripheral pulses present in both legs. Neurological: Patient is alert and oriented x3. Moves 4 extremities. LABORATORY DATA: White cell count 18.4, hemoglobin 12.5, hematocrit 40.5, platelets 312,000 with ABG that shows pH 7.50 with pCO2 of 64, PO2 of 135, and BMP reveals potassium 3.0 creatinine 1.2. ASSESSMENT AND PLAN: 1. Acute respiratory failure secondary to drug overdose. The patient continues to report pain in the left chest wall CT of the chest done yesterday that was ordered for this condition showed small pericardial effusion. Small bilateral pleural effusion and newly complete collapse of the left lower lobe. There is some mild mucus plugging in the right lower lobe as well and advanced COPD. In that regard, I will defer the management of this problem to Dr. Alvarado from Pulmonary. Considering that this patient seems to be having some small bilateral pleural effusion,I prefer to continue with Lasix at home. 2. Shock liver. AST and ALT are getting much better. ALT is a little bet elevated and the AST is completely normal. 3. Chronic obstructive pulmonary disease. The patient is on DuoNeb every 4 hours and Solu-Medrol every 12 hours and still requiring a high amount of oxygen. 4. Hypertension. Blood pressure is under control. We will continue with same management. 5. Opiate dependence. The patient keeps requesting for pain medication and for anxiety medication. Every single day I go over with her the risk of continue taking pain and anxiety medication at the same time. I explained to her that it is because her maybe advanced COPD that those medications can provide more harm than benefit. Patient every single day does not understand the risk of respiratory arrest that those medications can produce even though she has been admitted to the hospital twice for the same reason. Respiratory depression secondary to use of opiates and benzodiazepines. In any case, at this point, I prefer to continue with the same management. Also [place] 5 mg p.o. 3 times per day as needed. DISPOSITION: Physical therapy is working with this patient. I think the main problem with this patient is an opiate dependence. We will continue to monitor this patient closely. cc: Drew Handy MD
[2018-12-03] MEDS: ZOSYN 3.375 GM in NS 50 ML IV SCH ×4 (02:46→22:14)
[2018-12-03] MEDS: VANCOMYCIN ORAL SOLN PO SCH ×4 (02:48→22:14)
[2018-12-03] MEDS: DUONEB (A & A) INH SCH ×6 (03:05→23:30)
[2018-12-03] MEDS: NORCO-5 PO PRN ×3 (03:27→16:49)
[2018-12-03] MEDS: XANAX PO SCH ×4 (03:28→21:49)
--- NOTE | 2018-12-03 05:13 | PULMONOLOGY PROGRESS NOTE ---
DATE: 12/02/2018 SUBJECTIVE: The patient is awake and alert. She asked for pain medicines before any other discussion can ensue. The patient has a wet cough and also requesting something for sleep. She has no increased work of breathing. OBJECTIVE: Vital Signs: The patient has been afebrile for the last 24 hours. BP 128/73, heart rate 18, oxygen saturation 97% on Venturi mask. HEENT: Pupils are equal and reactive. Oropharynx is clear. Neck: Supple. Chest: Reveals E to A changes at the left base. Cardiac: Regular rate. Normal S1, S2. Abdomen: Scaphoid and soft. Extremities: Without edema. LABORATORY DATA: CT scan of the thorax yesterday is reviewed. There is a small pericardial effusion. There is small bilateral pleural effusions. She has a new pneumonia in the left lower lobe which was not present on 10/28/2018. White blood count 18.4 thousand, hemoglobin 12.5, platelet count 312,000. Arterial blood gas, pH 7.50, pCO2 of 64, PO2 of 135. Sodium 142, potassium 3.0, chloride 86, bicarbonate 47, BUN 27, creatinine. IMPRESSION: The patient is a 58-year-old with severe chronic obstructive pulmonary disease, ongoing tobacco use, chronic pain syndrome, left lower lobe pneumonia, Clostridium difficile positive antigen, protein calorie malnutrition, with pneumonia in the left lung and associated pleuritic pain or chest wall pain. RECOMMENDATION: 1. Defer treatment of pain and sleep request of the Hospitalist Service. 2. Strongly encourage the patient to deep breathing and cough and use her incentive spirometry. If she does not participate in actively clearing this left lower lobe, she may not survive this hospital stay. 3. Continue DVT prophylaxis and gastric acid suppression. 4. Recommend follow up CT scan in 4-6 weeks after discharge. cc: Jossue Alvarado MD
[2018-12-03 06:28] LABS: ALLEN TEST YES; BE 22.4 mmoll (-3.0-3.0); BLOOD TYPE ARTERIAL; HCO3-(ACT) 42.2 mmoll (20.0-26.0); METHB 1.4 % (0.0-1.5); O2(CT) 17.2 mL/dL (15.0-23.0); PO2(98.6) 57 mmHg (60-100); SAMPLE BLOOD; SAO2 92.1 % (95.0-100.0); THB 13.7 g/dL (11.5-17.4); pH(98.6) 7.51 (7.35-7.45)
[2018-12-03 06:31] LABS: MODALITY NRB; O2HB 89.4 % (95.0-99.0); PCO2(98.6) 62 mmHg (35-45)
[2018-12-03] MEDS: PROTONIX IV SCH ×2 (07:03→18:36)
[2018-12-03] MEDS: TEFLARO 600 MG in NS 250 ML IV SCH ×2 (07:03→18:42)
[2018-12-03 07:59] LABS: ALB/GLOB RATIO 1.5; ALBUMIN 3.8 g/dL (3.5-5.0); CREATININE 1.1 mg/dL (0.5-0.9); POTASSIUM 2.8 mmol/L (3.5-5.1); TOTAL BILIRUBIN 0.46 mg/dL (0.20-1.00); TOTAL PROTEIN 6.3 g/dL (6.3-8.3)
[2018-12-03 08:03] LABS: BASO# 0.03 X1000 (0.0-0.2); BASO% 0.2 % (0.0-0.8); HEMATOCRIT 42.7 % (37.0-47.0); HEMOGLOBIN 13.1 g/dL (12.0-16.0); IMM GRAN# 0.16 X1000 (0.0-0.04); LYMPH# 0.96 X1000 (1.2-3.4); LYMPH% 5.8 % (20.5-51.1); MCH 30.6 PG (27-31); MCHC 30.7 g/dL (33-37); MCV 99.8 FL (81-99); MONO# 1.03 X1000 (0.11-0.59); MONO% 6.2 % (1.7-9.3); MPV 12.5 FL (7.4-10.4); NEUT# 14.31 X1000 (1.4-6.5); NEUT% 86.8 % (42.2-75.2); PLT 340 X1000 (130-400); RBC 4.28 XMIL (4.2-5.4); RDW 16.7 % (11.5-14.5); WBC 16.49 X1000 (4.8-10.8)
[2018-12-03 08:20] LABS: BANDS 2 % (0-1); LYMPHS 11 % (21-51); MONO 2 % (1-9); SEGS 85 % (42-75)
[2018-12-03] MEDS: SOLU-MEDROL IV SCH ×2 (08:39→21:49)
[2018-12-03] MEDS: LASIX IV SCH ×2 (08:40→21:50)
[2018-12-03] MEDS: NEUTRA-PHOS GT SCH (08:43)
[2018-12-03] MEDS: POTASSIUM CHLORIDE 60 MEQ in NS 500 ML IV SCH ×2 (12:30→21:50)
[2018-12-03] MEDS ORDERED: SODIUM CHLORIDE 0.9% 10 ML ONE (15:47)
[2018-12-03] MEDS: LOVENOX SUBQ SCH (15:52)
[2018-12-04] MEDS: NORCO-5 PO PRN ×3 (00:44→20:56)
[2018-12-04] MEDS: ZOSYN 3.375 GM in NS 50 ML IV SCH ×5 (01:51→20:56)
[2018-12-04] MEDS: VANCOMYCIN ORAL SOLN PO SCH ×4 (01:52→20:55)
[2018-12-04] MEDS: DUONEB (A & A) INH SCH ×6 (03:30→23:45)
--- NOTE | 2018-12-04 03:39 | PROGRESS NOTE ---
DATE: 12/03/2018 SUBJECTIVE: Patient continues to complain of pain, severe, extremely excruciating pain in the left chest wall according to her, although she does not look to be in pain. She is not grimacing in pain and she is nontachycardic in my examination or looking on any distress at all. OBJECTIVE: Vital Signs: Temperature 98.7, heart rate 86, respiratory rate 18, blood pressure 125/79, O2 sat 99% on room air. General: This is a chronically ill-looking 58- year-old female lying in bed in no acute distress. Looking older than her stated age. HEENT: Head is normocephalic, atraumatic. Mucous membrane dry. Neck: No JVD noted. No carotid bruits. No lymphadenopathy. Cardiovascular: S1, S2 heard. No murmurs, gallops or rubs. Regular rate and rhythm. Respiratory: Coarse breath sounds in both bases with some crackles, otherwise the patient is not using any accessory muscles or having work of breathing. Abdomen: Soft, nontender to palpation. Bowel sounds present. No organomegaly. Extremities: No clubbing, cyanosis or edema. Peripheral pulses present in both legs. Neurologic: Patient is alert and oriented x 3. Moves 4 extremities. LABORATORY DATA: White cell count 16.49, hemoglobin 13.1, hematocrit 42.7, platelets 340,000. pH 7.51, pCO2 of 62, PO2 57. Potassium 2.8, creatinine 1.1. Chest CT done yesterday shows a small pericardial effusion with small bilateral pleural effusion. ASSESSMENT AND PLAN: 1. Acute respiratory failure secondary to drug overdose. Patient continues to require oxygen by non-rebreather mask. Considering that this patient is in day #1 of extubation, keeps requesting ever single day pain medications for excruciating left chest wall pain. We ordered a CT scan with results as above. I went and explained to her about the risk of using opiate and benzodiazepines in her particular case and I explained in depth to her about the high risk of intubation here if we provide more pain medications to her, but she does not care about it. I remark that this is the 4th admission that happened to her because of drug overdose. Apparently accidental overdose. What I think is if this patient continues to have that sensation of pain and keep asking if we can increase her pain pills. I talked to her about it, but unfortunately she keeps complaining of pain that to my understanding is not completely real. I do think personally that she does have opiate tolerance. At this point, she is receiving [place] 5 mg 1 tablet p.o. 3 times per day p.r.n. pain, but we are not going to increase the doses of that pain medications. Also, she requests for anxiety medication as well and I already explained to this patient that when she got one dose of Xanax her oxygen needs went from nasal cannula at 4 L to a non-rebreather mask at 100% oxygen so I personally do not recommend to increase the doses of benzodiazepines. 2. Shock liver. ALT, AST continue to improve. We will continue to monitor CMP. 3. Hypertension. Blood pressure is under control. We will continue with the same medications. 4. Opiate dependence, as was mentioned above. At this point, my plan is not to provide any more pain medications even though she reports that she does not care that we provide more and she got intubated. Also, Dr. Alvarado is following this patient. We will follow recommendations. 5. Disposition: The patient is still requiring high amount of oxygen. In this case, non- rebreather mask. Will optimize her respiratory function. We will continue to monitor this patient. cc: Drew Handy MD [facility]
[2018-12-04] MEDS: XANAX PO SCH ×4 (03:47→20:56)
[2018-12-04 05:11] LABS: ALLEN TEST YES; BE 11.6 mmoll (-3.0-3.0); BLOOD TYPE ARTERIAL; HCO3-(ACT) 33.8 mmoll (20.0-26.0); METHB 1.3 % (0.0-1.5); O2(CT) 15.8 mL/dL (15.0-23.0); O2HB 90.4 % (95.0-99.0); PCO2(98.6) 48 mmHg (35-45); PO2(98.6) 61 mmHg (60-100); SAMPLE BLOOD; SAO2 93.2 % (95.0-100.0); THB 12.4 g/dL (11.5-17.4); pH(98.6) 7.49 (7.35-7.45)
[2018-12-04 05:13] LABS: MODALITY BI PAP
[2018-12-04] MEDS: PROTONIX IV SCH ×2 (06:12→20:58)
[2018-12-04] MEDS: TEFLARO 600 MG in NS 250 ML IV SCH ×2 (06:12→18:53)
--- NOTE | 2018-12-04 07:25 | Diag Imaging Result Doc PS360 ---
EXAM: CHEST-2 VIEWS 12/04/2018 HISTORY: abnormal exam TECHNIQUE: PA and lateral chest COMMENT: There is opacification of the left lower lobe obscuring most of the hemidiaphragm. This was not the case at the time the previous study of 11/29/2018. IMPRESSION: Atelectasis and/or pneumonia left lower lobe. Electronically signed by Dick Coronado 12/04/2018 7:23 AM
[2018-12-04 07:29] LABS: BASO# 0.02 X1000 (0.0-0.2); BASO% 0.2 % (0.0-0.8); HEMATOCRIT 39.1 % (37.0-47.0); IMM GRAN# 0.11 X1000 (0.0-0.04); IMM GRAN% 0.8 % (0.0-0.5); LYMPH# 0.73 X1000 (1.2-3.4); LYMPH% 5.6 % (20.5-51.1); MCH 30.8 PG (27-31); MCHC 30.7 g/dL (33-37); MCV 100.3 FL (81-99); MONO# 0.59 X1000 (0.11-0.59); MONO% 4.5 % (1.7-9.3); MPV 12.6 FL (7.4-10.4); NEUT# 11.68 X1000 (1.4-6.5); NEUT% 88.9 % (42.2-75.2); PLT 303 X1000 (130-400); RDW 16.7 % (11.5-14.5); WBC 13.13 X1000 (4.8-10.8)
[2018-12-04 07:54] LABS: CREATININE 1.2 mg/dL (0.5-0.9); POTASSIUM 4.1 mmol/L (3.5-5.1)
[2018-12-04] MEDS: LASIX IV SCH ×2 (09:06→20:56)
[2018-12-04] MEDS: SOLU-MEDROL IV SCH ×2 (09:06→20:56)
[2018-12-04] MEDS: LOVENOX SUBQ SCH (12:29)
--- NOTE | 2018-12-04 13:29 | PROGRESS NOTE ---
DATE: 12/04/2018 INTERVAL HISTORY: Patient with continued complaints of left chest wall pain. Dozing comfortably while I came to the room. No signs of distress. No acute events overnight. REVIEW OF SYSTEMS: Twelve-point review of systems negative except as per interval history. LABS: White count 13.1, hemoglobin 12, hematocrit 39.1, platelets 303,000. ABG was pH 7.49, pCO2 48, PO2 61, O2 saturation 93% on 80% BiPAP at that time. BUN 32, creatinine 1.2, glucose 124. Basic metabolic panel otherwise unremarkable. Clostridium difficile antigen positive but toxin negative. Other cultures negative. No diarrhea noted. VITAL SIGNS: T-max 0.7, pulse 88, respirations 16, blood pressure 124/81, O2 saturation 97% on 3 L Ventimask. PHYSICAL EXAMINATION: General: No acute distress. Vital signs: As above. HEENT: Normocephalic, atraumatic. Moist mucous membranes. No cervical adenopathy. Cardiovascular: Regular rate and rhythm. No murmurs, rubs, or gallops. Respiratory: Scattered rhonchi, slightly decreased at the left base. No increased work of breathing. No accessory muscle use. Abdomen: Soft, nontender, nondistended. Bowel sounds positive. Extremities: Peripheral pulses intact. No clubbing, cyanosis, or edema. Neurologic: Cranial nerves grossly intact. No focal deficits. Psychiatric: Relatively normal mood and affect. Awake, alert, and oriented x3. Skin: No new rashes or lesions noted. ASSESSMENT AND PLAN: 1. Acute hypoxic respiratory failure. Secondary to drug overdose and likely aspiration pneumonia which developed at that time. Initially required intubation but extubated for the last couple of days. He continued to require high amounts of oxygen, however. Strongly encouraging incentive spirometer use. We will ask physical therapy to begin walking with her some. The patient continues to desire higher doses of narcotic and benzodiazepine despite numerous conversations about the dangers of this, as this is what she accidentally overdosed on. She appears to be more accepting of us not increasing her medications today. Continue antibiotics with vancomycin and Zosyn. Continue IV steroids and DuoNeb. Pulmonology following. 2. Shock liver. Last LFTs near normal. Essentially resolved at this point. 3. Hypertension. Reasonable control on current Lasix. Continue to monitor. 4. Chronic obstructive pulmonary disease. Likely contributing to hypoxic respiratory failure as above, but no wheezing at this time. Continue nebs and steroids. 5. Gastroesophageal reflux disease. Continue PPI. 6. Hypothyroidism. Continue home Synthroid. 7. Deep vein thrombosis prophylaxis. Lovenox. 8. Disposition. Rehab versus home once oxygenation improved.
[2018-12-05] MEDS: ZOSYN 3.375 GM in NS 50 ML IV SCH ×4 (01:56→22:34)
[2018-12-05] MEDS: VANCOMYCIN ORAL SOLN PO SCH ×4 (01:58→22:06)
[2018-12-05] MEDS: DUONEB (A & A) INH SCH ×6 (03:45→22:51)
[2018-12-05] MEDS: XANAX PO SCH ×4 (04:28→22:34)
[2018-12-05 05:15] LABS: ALLEN TEST YES; BE 10.4 mmoll (-3.0-3.0); BLOOD TYPE ARTERIAL; HCO3-(ACT) 32.8 mmoll (20.0-26.0); O2(CT) 15.8 mL/dL (15.0-23.0); PCO2(98.6) 46 mmHg (35-45); PO2(98.6) 55 mmHg (60-100); SAMPLE BLOOD; SAO2 91.2 % (95.0-100.0); THB 12.7 g/dL (11.5-17.4); pH(98.6) 7.49 (7.35-7.45)
[2018-12-05 05:18] LABS: MODALITY BI PAP; O2HB 88.7 % (95.0-99.0)
[2018-12-05] MEDS: TEFLARO 600 MG in NS 250 ML IV SCH ×2 (05:59→23:34)
--- NOTE | 2018-12-05 06:38 | PULMONOLOGY PROGRESS NOTE ---
DATE: 12/04/2018 SUBJECTIVE: The patient routinely asks for additional pain medications. She has a fair cough effort, and does report she is using her incentive spirometry. OBJECTIVE: Vital Signs: The patient has been afebrile for the last 24 hours. Blood pressure 129/76, heart rate 90, respiratory rate 20, oxygen saturation 96% on non-rebreather. HEENT: Pupils are equal and reactive. Oropharynx is clear. Neck: Supple. Chest: Reveals rhonchi bilaterally, with decreased breath sounds, left base. Cardiac: S1-S2. Abdomen: Obese and soft. Extremities: Without edema. LABORATORIES: Chest x-ray reveals continued pneumonia in the left lower lobe, which was not present on 11/29/2018. IMPRESSION: A 58-year-old with severe COPD, ongoing tobacco use, left lower lobe pneumonia, chronic pain syndrome, C. difficile positive antigen in her stool, with pleuritic chest pain. RECOMMENDATIONS: 1. Defer pain management and sleep aides to the Hospitalist service. 2. Continue to encourage bronchial hygiene with deep breath, cough, and incentive spirometry. 3. Continue DVT prophylaxis and gastric acid suppression. 4. Followup chest x-ray this weekend. cc: Jossue Alvarado MD
[2018-12-05 07:24] LABS: CALCIUM 9.3 mg/dL (8.8-10.2); POTASSIUM 3.5 mmol/L (3.5-5.1)
[2018-12-05] MEDS: NORCO-5 PO PRN ×2 (10:01→18:10)
[2018-12-05] MEDS: SOLU-MEDROL IV SCH ×2 (10:01→22:35)
[2018-12-05] MEDS: PROTONIX IV SCH ×2 (10:01→22:35)
[2018-12-05] MEDS: LASIX IV SCH ×2 (10:01→22:35)
[2018-12-05] MEDS: MBX SOLUTION MT PRN (12:19)
[2018-12-05] MEDS: TORADOL IV PRN ×2 (12:19→22:35)
--- NOTE | 2018-12-05 13:52 | PROGRESS NOTE ---
DATE: 12/05/2018 INTERVAL HISTORY: Patient with continued complaints of left chest wall pain. Also complaining of mouth pain. Was napping when I came into the room. No signs of distress. No acute events overnight but continuing to require significant amounts of oxygen. REVIEW OF SYSTEMS: Twelve-point review of systems negative except as per interval history. LABS: ABG with pH 7.49, pCO2 of 46, pO2 of 55, O2 sat 91% on 80% FiO2. Basic metabolic panel significant for BUN 36, creatinine 1.0, potassium 3.5, glucose 114. OBJECTIVE: Vital signs: T-max 99.3, pulse 88, respirations 18, blood pressure 140/78, O2 sat 95% on rebreather. General: In no acute distress. Vitals as above. HEENT: Normocephalic, atraumatic, moist mucous membranes. Several shallow ulcers underneath and on the sides of patient's tongue. No erythema, drainage, or other sign of infection. Neck: No cervical adenopathy. Cardiovascular: Regular rate and rhythm, no murmurs, rubs, or gallops. Respiratory: Still with some scattered rhonchi but largely clear to auscultation, no increased work of breathing, no accessory muscle use. Abdomen: Soft, nontender, nondistended, bowel sounds positive. Extremities: Peripheral pulses intact, no clubbing, cyanosis, or edema. Neurologic: Cranial nerves grossly intact, no focal deficits. Psychiatric: Normal mood and affect. Awake, alert, oriented x3. Skin: No new rashes or lesions noted. ASSESSMENT AND PLAN: 1. Acute hypoxic respiratory failure secondary to drug overdose and likely aspiration pneumonia. Initially required intubation but extubated for the last several days. Has continued to require high levels of oxygen to maintain sats, however. The patient reports compliance with incentive spirometer use. Physical Therapy consulted to begin walking her. Continue antibiotics of vancomycin and Zosyn. Continue IV steroids and DuoNebs. Pulmonology following and awaiting further recommendations given slow progress. 2. Shock liver. Last LFTs near normal, essentially resolved at this point. 3. Chronic opioid dependence. Patient with multiple previous accidental overdoses in the past. Continues to request higher doses of pain medicine despite risk. Discussed nonnarcotic pain medicines since she is willing to give these a try. Will try her on low-dose Toradol and monitor. 4. Hypertension, reasonable control on current medication. Continue to monitor. 5. Chronic obstructive pulmonary disease likely contributing to hypoxia as above , but no wheezing, no signs of exacerbation. Continue nebs and steroids. 6. Gastroesophageal reflux disease. Continue proton pump inhibitor. 7. Hypothyroidism. Continue home Synthroid. 8. Oral ulcers. Will give patient Magic Mouthwash and monitor. No skin rashes to suggest drug allergy but will monitor closely. 9. DVT prophylaxis. Lovenox. 10. Disposition: Rehab versus home once oxygenation improved. MTDD
[2018-12-05] MEDS: LOVENOX SUBQ SCH (14:07)
[2018-12-06] MEDS: NORCO-5 PO PRN ×3 (02:05→17:55)
[2018-12-06] MEDS: ZOSYN 3.375 GM in NS 50 ML IV SCH ×4 (02:06→21:58)
[2018-12-06] MEDS: VANCOMYCIN ORAL SOLN PO SCH ×4 (02:07→22:14)
[2018-12-06] MEDS: TORADOL IV PRN ×4 (04:05→21:57)
[2018-12-06] MEDS: XANAX PO SCH ×4 (04:05→21:57)
[2018-12-06 05:23] LABS: BE 6.4 mmoll (-3.0-3.0); BLOOD TYPE ARTERIAL; HCO3-(ACT) 29.9 mmoll (20.0-26.0); METHB 1.2 % (0.0-1.5); O2(CT) 16.2 mL/dL (15.0-23.0); O2HB 95.3 % (95.0-99.0); PCO2(98.6) 41 mmHg (35-45); PO2(98.6) 95 mmHg (60-100); SAMPLE BLOOD; SAO2 97.6 % (95.0-100.0); pH(98.6) 7.48 (7.35-7.45)
[2018-12-06] MEDS: DUONEB (A & A) INH SCH ×6 (05:23→23:40)
[2018-12-06 05:32] LABS: MODALITY NRB
[2018-12-06 05:33] LABS: ALLEN TEST YES
[2018-12-06] MEDS: TEFLARO 600 MG in NS 250 ML IV SCH ×2 (09:24→23:12)
[2018-12-06] MEDS: SOLU-MEDROL IV SCH ×2 (09:25→21:56)
[2018-12-06] MEDS: PROTONIX IV SCH ×2 (09:25→21:57)
[2018-12-06] MEDS: LASIX IV SCH ×2 (09:25→21:57)
--- NOTE | 2018-12-06 13:45 | PROGRESS NOTE ---
DATE: 12/06/2018 INTERVAL HISTORY: The patient still complaining of left-sided pain but appears quite comfortable. The patient with oxygen off when I came into the room. The patient instructed on the importance of compliance with oxygen given that she is still requiring non-rebreather. Does appear to have had some improvement in oxygenation overnight. Discussed the possibility of adding gabapentin or Cymbalta for improvement in her chronic pain, but the patient declined. I also discussed adding Paxil or Cymbalta for her anxiety and patient also declined this. REVIEW OF SYSTEMS: Twelve-point review of system negative except for what is in interval history. LABORATORY DATA: ABG with pH 7.48, pCO2 of 41, PO2 95, O2 sat 16% on 100% non- rebreather, glucose 133. VITAL SIGNS: T-max 98.7, pulse 79, respirations 18, blood pressure 134/71, O2 saturation 95% on non-rebreather. Prior to that, 71% on room air when patient removed her oxygen. PHYSICAL EXAMINATION: General: No acute distress. Vital signs as above. HEENT: Normocephalic, atraumatic. Moist mucous membranes. Shallow oral ulcers, unchanged. Cardiovascular: Regular rate and rhythm. No murmurs, rubs, or gallops. Respiratory: Still with some scattered, slightly decreased in left base. Abdomen soft, nontender, nondistended. Bowel sounds positive. Extremities: Peripheral pulses intact. No clubbing, cyanosis , or edema. Neurologic: Cranial nerves 2-12 grossly intact. No focal motor sensory deficits. Psychiatric: Normal mood and affect. Awake, alert, oriented x3. Skin: No new rashes or lesions identified. ASSESSMENT AND PLAN: 1. Acute hypoxic respiratory failure secondary to drug overdose leading to aspiration pneumonia. Initially required intubation but was extubated for the last several days. Has continued to require high levels of oxygen with non-rebreather but does appear to have some improvement in her oxygenation on most recent ABG. Importance of compliance emphasized to patient. Physical therapy beginning to work with her some. On antibiotics with vancomycin and Zosyn. Continue steroids and DuoNeb's. Pulmonology following. 2. Chronic opioid dependence. Patient with multiple previous accidental overdose in the past. Continues to require higher dose of pain medication despite risks. The patient reports slight improvement in pain control with addition of Toradol but declined any other agents such as gabapentin or Cymbalta. 3. Shock liver, essentially resolved. 4. Hypertension, reasonable control, on current regimen. Continue to monitor. 5. Chronic obstructive pulmonary disease. No signs of exacerbation, but may be contributing somewhat to hypoxia as above. Continue nebulizers and steroids. 6. Gastroesophageal reflux disease. Continue proton pump inhibitor. 7. Hypothyroidism. Continue on Synthroid. 8. Oral ulcers. Some improvement symptomatically with Magic mouthwash. No new skin rashes to suggest drug allergy but will continue to monitor. 9. Deep vein thrombosis prophylaxis; Lovenox. DISPOSITION: Rehab versus home once oxygenation improved. [facility]
[2018-12-06] MEDS: LOVENOX SUBQ SCH (14:56)
--- NOTE | 2018-12-06 20:05 | PULMONOLOGY PROGRESS NOTE ---
DATE: 12/06/2018 SUBJECTIVE: Patient was short of breath and complaining of chest pain upon my arrival. The patient was placed on BiPAP with significant improvement in her symptoms. She continues to complain of pleuritic left-sided chest pain. OBJECTIVE: The patient has been afebrile for the last 24 hours. Blood pressure 114/67, heart rate 16, oxygen saturation 94 to 96 percent on BiPAP.HEENT: Pupils are equal and reactive. Oropharynx is clear. Neck: Is supple. Chest: Reveals prolonged expiratory phase with decreased breath sounds left base. Cardiac: S1-S2. Abdomen: Is soft and without hepatosplenomegaly. Extremities: Are without edema. LABORATORIES: No new microbiology data. Arterial blood gas reveals a pH 7.48, pCO2 of 41, PO2 of 95. IMPRESSION: 58-year-old with severe chronic obstructive pulmonary disease, left lower lobe pneumonia with pleuritic chest pain, chronic pain syndrome, Clostridium difficile positive antigen in the stool, with ongoing tobacco use. PLAN: 1. Continue BiPAP through the evening. 2. Encourage cough and bronchial hygiene. The patient is aware that if she does not put forth the effort to cough and continues to splint it will be difficult to clear this pneumonia and put her at risk for intubation. 3. Continue DVT prophylaxis and gastric acid suppression. 4. Followup chest x-ray tomorrow morning. cc: Jossue Alvarado MD
[2018-12-06] MEDS: TESSALON PO PRN (21:57)
[2018-12-07] MEDS: MUCINEX PO SCH ×3 (01:23→20:21)
[2018-12-07] MEDS: ZOSYN 3.375 GM in NS 50 ML IV SCH ×4 (02:02→20:19)
[2018-12-07] MEDS: NORCO-5 PO PRN ×3 (02:02→20:21)
[2018-12-07] MEDS: VANCOMYCIN ORAL SOLN PO SCH ×4 (02:02→20:19)
[2018-12-07] MEDS: DUONEB (A & A) INH SCH ×6 (03:31→23:34)
[2018-12-07] MEDS: XANAX PO SCH ×5 (04:08→23:36)
[2018-12-07] MEDS: TORADOL IV PRN ×2 (04:09→16:34)
[2018-12-07 05:03] LABS: ALLEN TEST YES; BE 5.8 mmoll (-3.0-3.0); BLOOD TYPE ARTERIAL; HCO3-(ACT) 29.4 mmoll (20.0-26.0); METHB 1.3 % (0.0-1.5); O2HB 96.5 % (95.0-99.0); PCO2(98.6) 40 mmHg (35-45); PO2(98.6) 152 mmHg (60-100); SAMPLE BLOOD; THB 11.6 g/dL (11.5-17.4); pH(98.6) 7.48 (7.35-7.45)
[2018-12-07 05:04] LABS: MODALITY NRB
[2018-12-07 07:22] LABS: HEMATOCRIT 37.1 % (37.0-47.0); HEMOGLOBIN 11.3 g/dL (12.0-16.0); IMM GRAN# 0.05 X1000 (0.0-0.04); IMM GRAN% 0.3 % (0.0-0.5); LYMPH% 4.2 % (20.5-51.1); MCH 30.6 PG (27-31); MCHC 30.5 g/dL (33-37); MCV 100.5 FL (81-99); MONO# 0.57 X1000 (0.11-0.59); MONO% 3.4 % (1.7-9.3); MPV 12.6 FL (7.4-10.4); NEUT# 15.48 X1000 (1.4-6.5); NEUT% 92.1 % (42.2-75.2); PLT 284 X1000 (130-400); RBC 3.69 XMIL (4.2-5.4); RDW 15.9 % (11.5-14.5)
--- NOTE | 2018-12-07 07:25 | Diag Imaging Result Doc PS360 ---
CHEST-PORTABLE - 12/07/2018 INDICATION: dyspnea COMPARISON: 12/04/2018 FINDINGS: There is now a large left pneumothorax with complete collapse of the left lung. The right lung is well expanded. No deviation of the mediastinum. IMPRESSION: Large left pneumothorax with complete collapse of the left lung. This report was discussed with Emilia in radiology on 12/07/2018 at 7:24 AM and was readback. Electronically signed by Devin Russo 12/07/2018 7:22 AM
[2018-12-07] MEDS ORDERED: MORPHINE IV PRN (07:32)
[2018-12-07 07:40] LABS: PHOSPHORUS 3.8 mg/dL (2.7-4.5)
[2018-12-07] MEDS ORDERED: DILAUDID IV ONE (07:41)
[2018-12-07] MEDS ORDERED: XYLOCAINE-MPF 1% INJ ONE (07:45)
[2018-12-07] MEDS ORDERED: DILAUDID ONE (08:00)
[2018-12-07 08:08] LABS: CALCIUM 8.8 mg/dL (8.8-10.2); CREATININE 1.1 mg/dL (0.5-0.9); HYPOCHROM 2+; LYMPHS 3 % (21-51); MONO 4 % (1-9); POTASSIUM 3.1 mmol/L (3.5-5.1); SEGS 93 % (42-75); STOMATOCYTES 2+
[2018-12-07 08:09] LABS: LARGE PLATELETS 2+
--- NOTE | 2018-12-07 09:14 | Diag Imaging Result Doc PS360 ---
CHEST-PORTABLE - 12/07/2018 8:38 AM INDICATION: Post Chest Tube Placement COMPARISON: 5:00 AM FINDINGS: There is a small bore left chest tube in good position. There has been near-complete resolution of the large left pneumothorax with reexpansion of the left lung. There is a small infiltrate at the right lung apex. IMPRESSION: Good placement of a left sided small bore chest tube with near complete resolution of the pneumothorax. Electronically signed by Devin Russo 12/07/2018 9:11 AM
[2018-12-07] MEDS: LASIX IV SCH ×2 (10:14→20:20)
[2018-12-07] MEDS: PROTONIX IV SCH ×2 (10:14→20:19)
[2018-12-07] MEDS: TEFLARO 600 MG in NS 250 ML IV SCH ×2 (10:15→20:18)
[2018-12-07] MEDS: SOLU-MEDROL IV SCH ×2 (10:48→20:20)
--- NOTE | 2018-12-07 11:58 | PROGRESS NOTE ---
DATE: 12/07/2018 INTERVAL HISTORY: Patient with increased sensation of dyspnea last night and this morning. No change in vitals or oxygenation. Chest x-ray obtained which showed complete left pneumothorax. No trauma, no recent line placement, so likely spontaneous. Dr. Mcbride with general surgery, who was contacted, came to the bedside and placed a chest tube. Post chest tube x-ray shows good placement of the chest tube with almost complete resolution of the pneumothorax. The patient is in the process of being moved to the ICU for closer monitoring status post pneumothorax. Remains on nonrebreather but oxygenation stable to possibly even slightly improved from yesterday. No other acute events overnight. Complaints remain of pain and anxiety but the patient does not desire SSRI, Cymbalta, gabapentin, or other nonnarcotic/benzodiazepine therapy. REVIEW OF SYSTEMS: Twelve point review of systems negative except as per interval history. LABS: WBCs 16.8, hemoglobin 11.3, hematocrit 37.1, platelets 284,000. ABG with a pH 7.48, pCO2 40, PO2 152, O2 saturation 96% on a nonrebreather. Sodium 143, potassium 3.1, chloride 100, BUN 37, creatinine 1.1, glucose 105. IMAGING: Initial chest x-ray this morning with large left pneumothorax with complete collapse of the left lung. Repeat chest x-ray with good placement of a left-sided small bore chest tube with near complete resolution of pneumothorax. VITAL SIGNS: T-max 98.8 degrees, pulse is 82, respirations 20, blood pressure 143/88, O2 saturation is 100% on a nonrebreather. DISCHARGE PHYSICAL EXAMINATION: General: No acute distress. Chronically ill-appearing. Vitals: As above. HEENT: Normocephalic, atraumatic. Moist mucous membranes. Shallow oral ulcers unchanged. Cardiovascular: Regular rate and rhythm. No murmurs, rubs, or gallops. Respiratory: Diffuse rhonchi on the left, slightly decreased at the left base. Right largely clear to auscultation. Chest tube noted in the left chest wall. Some sanguinous drainage to the dressing around the chest tube. Abdomen: Soft, nontender, nondistended. Bowel sounds positive. Extremities: Peripheral pulses intact. No clubbing, cyanosis, or edema. Neurologic: Cranial nerves 2-12 were grossly intact. No focal motor or sensory deficit. Psychiatric: Normal mood and affect. Awake, alert, and oriented x3. Skin: No new rashes or lesions identified. ASSESSMENT AND PLAN: 1. Acute hypoxic respiratory failure: Multifactorial with initial drug overdose leading to aspiration pneumonia. Initially requiring intubation but extubated for the last several days. Also with underlying chronic obstructive pulmonary disease and this morning with pneumothorax contributing. Has continued to require high levels of oxygen but ABG does show some continued slow improvement in oxygenation. May be able to start weaning oxygen down some. Continue antibiotics with vancomycin and Zosyn. Continue steroids and DuoNebs. Pulmonology following. 2. Left pneumothorax, large pneumothorax on the left this morning which appears to be spontaneous. Dr. Mcbride was contacted and placed a left-sided chest tube with near resolution of the pneumothorax. We will continue to monitor closely. 3. Chronic obstructive pulmonary disease. Still no wheezing and good air entry status post chest tube placement so no signs of exacerbation at this time but likely contributing to hypoxia as above. Continue nebulizers and steroids. 4. Chronic opioid dependence. Patient with multiple previous accidental overdoses. Continues to request higher doses by pain medications by rest. Given pneumothorax and chest tube placement, we will give small doses of Dilaudid for today but we will plan on titrating back down as pneumothorax resolves and chest tube is removed. Continues to decline any additional agents such as gabapentin or Cymbalta. 5. Shock liver, resolved. 6. Hypertension. Reasonably controlled on current regimen. Continue to monitor. 7. Gastroesophageal reflux disease. Continue proton pump inhibitor. 8. Hypothyroidism. Continue Synthroid. 9. Oral ulcers, appear to be resolving slowly. No new ulcers. No skin rash to suggest allergic reaction. Continue Magic Mouthwash as needed. 10. Deep vein thrombosis prophylaxis with Lovenox. 11. Disposition, rehabilitation versus home once pneumothorax resolves, chest tube is out, and oxygenation improved.
[2018-12-07] MEDS: LOVENOX SUBQ SCH (12:54)
[2018-12-07] MEDS: DILAUDID IV PRN ×2 (13:10→20:52)
--- NOTE | 2018-12-07 15:10 | GENERAL SURGERY CONSULTATION ---
DATE: 12/07/2018 HISTORY OF PRESENT ILLNESS: This is a 58-year-old female who was admitted 13 days ago after a cardiopulmonary arrest. She subsequently was revived and has been treated now for some time with persistent respiratory failure and pneumonia. She has COPD. She is a smoker with chronic pain syndrome and protein calorie malnutrition. She had a chest x-ray this morning however that showed a complete left pneumothorax. She does complain of left-sided chest pain and shortness of breath that has worsened today. PAST MEDICAL HISTORY: COPD, coronary artery disease, chronic pain syndrome, chronic anxiety, gastroesophageal reflux disease, hypothyroidism. SOCIAL HISTORY: Positive for tobacco and alcohol. FAMILY HISTORY: Reviewed and noncontributory. ALLERGIES: Codeine, sulfa, Levaquin, tramadol. REVIEW OF SYSTEMS: Ten systems reviewed and negative except as noted above. PAST SURGICAL HISTORY: Appendectomy, cholecystectomy, hysterectomy. CURRENT MEDICATIONS: Alkol, DuoNeb, Xanax, Tessalon, ceftaroline, Lovenox, Lasix, Mucinex, Dilaudid, Toradol, Solu-Medrol, Zofran, Protonix, Zosyn, vancomycin. PHYSICAL EXAMINATION: General: This is a well-developed, elderly female who looks a little older than her stated age and appears to be anxious. HEENT: Normocephalic, atraumatic. Extraocular muscles intact. Pupils equal, round, reactive to light. Sclerae anicteric. Neck: Supple. No thyromegaly. CV: Regular rate and rhythm. Respiratory: Her breath sounds are rather normal on the right side but absent on the left side. GI: Soft, nontender, nondistended. Extremities: No clubbing, cyanosis, or edema. Skin: Warm and dry. No rash. Musculoskeletal: Moves all extremities equally and well. LABORATORY: White blood cell count 16,000, hemoglobin 11.3, hematocrit 37, platelet count 284,000, pH 7.4, pCO2 40, PaO2 152, bicarb 29, base excess 5.8. Electrolytes reviewed and unremarkable. IMAGING: A chest x-ray reviewed shows complete left pneumothorax. ASSESSMENT/PLAN: A 58-year-old female with pneumonia, status post recent cardiac arrest, chronic obstructive pulmonary disease, chronic tobacco abuse, now with new left-sided normal pneumothorax of unclear etiology other than a rupture of a bleb from chronic obstructive pulmonary disease. She needs a chest tube placed. I discussed the risks and benefits with her including bleeding, infection, injury to the lung, inadequate tube placement, and other imponderables. She understands and agrees to proceed. cc: Sudhakar Mcbride MD
--- NOTE | 2018-12-07 15:15 | OPERATIVE NOTE ---
PROCEDURE DATE: 12/07/2018 PREOPERATIVE DIAGNOSIS: Left pneumothorax. POSTOP DIAGNOSIS: Left pneumothorax. PROCEDURE: Insertion of left-sided chest tube/catheter. SURGEON: Sudhakar Mcbride MD. ESTIMATED BLOOD LOSS: Scant. COMPLICATIONS: None apparent. FINDINGS: Positive air upon entry of the pleural space. TECHNIQUE: The patient was kept in her hospital bed and rolled to her right side. Her left lateral chest was prepped and draped in usual sterile fashion. 1% lidocaine was used to anesthetize the skin, subcutaneous tissue and intercostal muscles. I made a small stab incision at about the 5th intercostal space in the anterior axillary line and then the chest catheter was directed with the needle and syringe over the rib into the pleural space, obtaining air bubbles. The catheter was then advanced over the stylus into the pleural space. There was air flowing back and forth through the catheter confirming proper placement. It was attached to the Pleur-evac drainage system and anchored to the skin with silk suture. A sterile dressing was applied. There were no apparent complications. cc: Sudhakar Mcbride MD
--- NOTE | 2018-12-07 20:27 | PULMONOLOGY PROGRESS NOTE ---
DATE: 12/07/2018 INTERIM HISTORY: The patient had increased shortness of breath last evening and was initiated on BiPAP. This morning she was noted to have a pneumothorax in the left chest. The patient had a small bore chest tube placed by Dr. Mcbride with good reexpansion. She is having some difficulty with bleeding around the site and has been transferred to the ICU. Her shortness of breath and work of breathing have markedly diminished. OBJECTIVE: BP 115/76, heart rate 73, respiratory rate 12, oxygen saturation 94%.HEENT: Pupils are equal and reactive. Oropharynx is clear. Neck: Supple. Chest: Reveals good air flow bilaterally with prolonged expiratory phase. Cardiac: S1-S2. Abdomen: Soft without hepatosplenomegaly. Extremities: Without edema. LABORATORIES: First chest x-ray this morning revealed complete collapse of the left lung, 2nd chest x-ray reveals good reexpansion. IMPRESSION: 58-year-old with severe chronic obstructive pulmonary disease, left lower lobe pneumonia, chronic pain syndrome, ongoing tobacco use with a spontaneous pneumothorax. She is having some bleeding at the chest tube site. Clinically her breathing has improved and it appears her radiograph/pneumonia has also improved in the left base. RECOMMENDATIONS: 1. Chest tube management per Dr. Mcbride who is aware of the bleeding at the chest tube site. 2. Continue antibiotics. 3. Continue bronchial hygiene. 4. Followup chest x-ray tomorrow. 5. Encourage smoking cessation. cc: Jossue Alvarado MD
[2018-12-08] MEDS: TORADOL IV PRN ×4 (01:13→22:03)
[2018-12-08] MEDS: VANCOMYCIN ORAL SOLN PO SCH ×4 (02:50→20:12)
[2018-12-08] MEDS: ZOSYN 3.375 GM in NS 50 ML IV SCH ×4 (02:50→19:58)
[2018-12-08] MEDS: DUONEB (A & A) INH SCH ×6 (03:00→23:24)
[2018-12-08] MEDS: DILAUDID IV PRN ×5 (03:10→20:35)
[2018-12-08] MEDS: NORCO-5 PO PRN ×3 (03:11→18:36)
[2018-12-08] MEDS: XANAX PO SCH ×4 (03:13→21:25)
[2018-12-08 04:28] LABS: ALLEN TEST YES; BE 7.6 mmoll (-3.0-3.0); BLOOD TYPE ARTERIAL; HCO3-(ACT) 30.8 mmoll (20.0-26.0); METHB 0.9 % (0.0-1.5); O2(CT) 12.3 mL/dL (15.0-23.0); O2HB 95.6 % (95.0-99.0); PO2(98.6) 81 mmHg (60-100); SAMPLE BLOOD; SAO2 98.1 % (95.0-100.0); THB 9.1 g/dL (11.5-17.4); pH(98.6) 7.42 (7.35-7.45)
[2018-12-08 04:38] LABS: MODALITY NRB; PCO2(98.6) 51 mmHg (35-45)
[2018-12-08] MEDS: TEFLARO 600 MG in NS 250 ML IV SCH ×2 (08:07→19:57)
[2018-12-08] MEDS: PROTONIX IV SCH ×2 (08:08→19:57)
[2018-12-08] MEDS: MUCINEX PO SCH ×2 (08:53→20:01)
[2018-12-08] MEDS: SOLU-MEDROL IV SCH ×2 (08:54→20:01)
[2018-12-08] MEDS: LASIX IV SCH ×2 (08:54→20:01)
--- NOTE | 2018-12-08 08:54 | Diag Imaging Result Doc PS360 ---
EXAM: CHEST-PORTABLE HISTORY: chest tube TECHNIQUE: Portable chest COMPARISON: 12/07/2018 FINDINGS: The lungs are well expanded. There is a small left pneumothorax with a chest tube inferiorly. The pneumothorax is slightly larger than on the prior exam. The heart is not enlarged. The vessels are not distended. Nodular area of increased density in the right apex remains and is unchanged. No effusion identified. IMPRESSION: Slight increase in size of the small left pneumothorax. Electronically signed by Dwayne Newsome 12/08/2018 8:52 AM
--- NOTE | 2018-12-08 12:55 | PULMONOLOGY PROGRESS NOTE ---
DATE: 12/08/2018 SUBJECTIVE: The patient is awake, alert, and conversant. She is on a non-rebreather. She denies shortness of breath at this time. OBJECTIVE: Vital signs: The patient has been afebrile for the last 24 hours. BP 95/75. Heart rate 98. Respiratory rate 18. Oxygen saturation 96% on non-rebreather. HEENT: Pupils are equal and reactive. Oropharynx is clear. Neck: Supple. Chest: Has a small bore left chest tube in the left hemithorax. She has air leak identified. She continues to ooze blood from the left hemithorax. Abdomen: Soft. Extremities: Without edema. LABORATORIES: Chest x-ray reveals near expansion of the left lung with some minor air noted at the left base. IMPRESSION: A 58-year-old with severe chronic obstructive pulmonary disease, ongoing tobacco use at the time of admission, left lower lobe pneumonia, spontaneous pneumothorax, chronic pain syndrome, and bleeding from the chest wall site. The patient was evaluated by Dr. Mcbride after I evaluated the patient this morning. He reports he used some sutures in an attempt to decrease bleeding from the chest tube site. PLAN: 1. Continue chest tube management. Hopefully, this small tube will be large enough to re-expand the left lung and to allow a seal to occur. 2. Continue antibiotics. 3. Continue bronchial hygiene. 4. Continue ICU monitoring pending cessation of bleeding and resolution of air leak. cc: Jossue Alvarado MD
--- NOTE | 2018-12-08 15:08 | PROGRESS NOTE ---
DATE: 12/08/2018 INTERVAL HISTORY: The patient fairly stable in ICU overnight. Continue to require on non- rebreather but appears to have some room to wean oxygen. Repeat chest x-ray this morning showed slight increase in inferior left pneumothorax but still markedly improved from yesterday morning. Still some oozing of blood from the site of the chest tube this morning. No new complaints. No other acute events overnight. LABS: ABG with pH 7.42, pCO2 51, PO2 81 on 100% nonrebreather, glucose 137. OBJECTIVE: Vitals: T-max 98.8 degrees, pulse 96, respirations 20, blood pressure 101/80, O2 saturation 100% on nonrebreather. General: No acute distress. HEENT: Normocephalic, atraumatic. Moist mucous membranes, shallow oral ulcers slightly improved. Cardiovascular: Regular rate and rhythm. No murmurs, rubs, or gallops. Respiratory: Scattered rhonchi. Slightly decreased at left base. Chest tube noted in the left chest wall heavily bandaged. Abdomen: Soft, nontender, nondistended. Bowel sounds positive. Extremities: Peripheral pulses intact. No clubbing, cyanosis or edema. Neurologic: Cranial nerves 2-12 grossly intact. No focal motor sensory deficits. Psychiatric: Normal mood and affect, awake, alert, oriented x3. Skin: No new rashes or lesions identified. ASSESSMENT AND PLAN: 1. Acute hypoxic respiratory failure multifactorial with initial drug overdose leading to aspiration pneumonia. Also with spontaneous left pneumothorax 12/07. Initially required intubation but extubated for the last several days. Chest tube in place with improvement in left pneumothorax although does appear to have a very slight increase in pneumothorax inferiorly this morning. Continued oozing of blood from chest tube site surgery planning to come by and reassess later today. Will wean oxygen as tolerated. Continue antibiotics with vanc and Zosyn . Continue steroids and DuoNeb. Pulmonology following. 2. Left pneumothorax, chest tube in place as above, continue to monitor closely. 3. Chronic obstructive pulmonary disease still no wheezing and pretty good air entry aside for pneumothorax. No signs exacerbation at this time. continue nebs and steroids. 4. Chronic opioid dependence. Patient with multiple previous accidental overdoses . Continues to request higher doses of pain medicine but appears quite comfortable at all evaluations. Allowing small doses of Dilaudid currently given recent pneumothorax and chest tube. Continues to decline any nonnarcotic agents such as gabapentin, Cymbalta or Paxil. 5. Shock liver resolved. 6. Hypertension good control on current regimen, continue to monitor vitals. 7. Gastroesophageal reflux disease, continue PPI. 8. Hypothyroidism, continue Synthroid. 9. Oral ulcers continue to resolve slowly. No new ulcers. No skin rash to suggest allergic reaction. Continue Magic mouthwash as needed for symptomatic treatment. 10. Deep vein thrombosis prophylaxis Lovenox. 11. Disposition, rehab versus home health once pneumothorax resolved, chest tube is out and oxygenation improved. [facility]
--- NOTE | 2018-12-08 16:44 | GENERAL SURGERY PROGRESS NOTE ---
DATE: 12/08/2018 SUBJECTIVE: The patient has had bleeding around her chest catheter throughout the night and morning requiring several dressing changes. She did report better breathing after the chest catheter was placed. OBJECTIVE: Vital signs: She is afebrile. Vital signs are stable. General: She is awake, alert, oriented x3. In No acute distress. Respiratory: Bilateral breath sounds. No work of breathing. There is constant oozing of blood from the skin level around the catheter. No hematoma. IMAGING: Chest x-ray reveals a slight increase in pneumothorax on the left inferiorly. ASSESSMENT AND PLAN: A 58-year-old female with left pneumothorax in the setting of pneumonia and recent positive pressure ventilation with BiPAP and a long-standing chronic obstructive pulmonary disease. The pneumothorax is much improved after the chest catheter, but has worsened some overnight. We will increase the suction. Hopefully, this will overcome her air leak, which was evident on her chest drainage system. In addition, I will place a stitch around the exit site to control the bleeding. PROCEDURE: Suture control of hemorrhage. SURGEON: Sudhakar Mcbride MD. ESTIMATED BLOOD LOSS: Scant. COMPLICATIONS: None apparent. TECHNIQUE: The skin was prepped with an alcohol swab. A 3-0 chromic was placed in a pursestring fashion around the skin and exit site of the catheter. This appeared to control the bleeding. A new sterile dressing was applied. There were no apparent complications. cc: Sudhakar Mcbride MD
[2018-12-08] MEDS ORDERED: SODIUM CHLORIDE 0.9% 10 ML ONE (20:13)
[2018-12-09] MEDS: DILAUDID IV PRN ×6 (01:06→22:33)
[2018-12-09] MEDS: ZOSYN 3.375 GM in NS 50 ML IV SCH ×4 (01:11→22:15)
[2018-12-09] MEDS: VANCOMYCIN ORAL SOLN PO SCH ×3 (01:12→13:53)
[2018-12-09] MEDS: DUONEB (A & A) INH SCH ×6 (03:13→23:37)
[2018-12-09] MEDS: XANAX PO SCH ×4 (03:47→22:16)
[2018-12-09] MEDS: NORCO-5 PO PRN ×3 (04:01→17:54)
[2018-12-09] MEDS: TORADOL IV PRN ×4 (04:05→23:52)
[2018-12-09 05:00] LABS: ALLEN TEST YES; BE 5.8 mmoll (-3.0-3.0); BLOOD TYPE ARTERIAL; HCO3-(ACT) 29.5 mmoll (20.0-26.0); METHB 1.7 % (0.0-1.5); MODALITY CANNULA; O2(CT) 9.8 mL/dL (15.0-23.0); O2HB 95.8 % (95.0-99.0); PCO2(98.6) 40 mmHg (35-45); PO2(98.6) 113 mmHg (60-100); SAMPLE BLOOD; THB 7.1 g/dL (11.5-17.4); pH(98.6) 7.48 (7.35-7.45)
[2018-12-09 06:00] LABS: CALCIUM 7.6 mg/dL (8.8-10.2); CREATININE 1.4 mg/dL (0.5-0.9); POTASSIUM 2.7 mmol/L (3.5-5.1)
[2018-12-09] MEDS ORDERED: POTASSIUM CHLORIDE 80 MEQ in NS 500 ML IV ONE (07:31)
[2018-12-09] MEDS: TEFLARO 600 MG in NS 250 ML IV SCH (07:46)
[2018-12-09] MEDS: PROTONIX IV SCH ×2 (07:47→22:16)
[2018-12-09 07:50] LABS: HEMATOCRIT 20.8 % (37.0-47.0); HEMOGLOBIN 6.4 g/dL (12.0-16.0); IMM GRAN# 0.07 X1000 (0.0-0.04); IMM GRAN% 0.6 % (0.0-0.5); LYMPH# 0.84 X1000 (1.2-3.4); LYMPH% 6.9 % (20.5-51.1); MCHC 30.8 g/dL (33-37); MCV 97.7 FL (81-99); MONO# 0.43 X1000 (0.11-0.59); MONO% 3.5 % (1.7-9.3); MPV 11.6 FL (7.4-10.4); NEUT# 10.88 X1000 (1.4-6.5); PLT 225 X1000 (130-400); RBC 2.13 XMIL (4.2-5.4); RDW 14.3 % (11.5-14.5)
--- NOTE | 2018-12-09 08:00 | Diag Imaging Result Doc PS360 ---
EXAM: CHEST-PORTABLE 12/09/2018 HISTORY: pneumothorax TECHNIQUE: AP portable at 0741 COMMENT: There is a small residual pneumothorax seen in the left costophrenic angle region, above the left hemidiaphragm and medial to the lower lobe. This has diminished in volume since the previous study. The small bore catheter is still present on the left. Otherwise the appearance the chest has not changed appreciably since the previous examination of 12/08/2018. IMPRESSION: Improving left pneumothorax. Electronically signed by Dick Coronado 12/09/2018 7:58 AM
[2018-12-09] MEDS: SOLU-MEDROL IV SCH ×2 (08:39→22:16)
[2018-12-09] MEDS: LASIX IV SCH ×2 (08:39→22:15)
[2018-12-09] MEDS: MUCINEX PO SCH ×2 (08:43→22:16)
[2018-12-09] MEDS ORDERED: KLOR-CON PO ONE ×2 (08:55→15:19)
[2018-12-09] MEDS: SYNTHROID PO SCH (09:29)
[2018-12-09 12:55] LABS: BASO# 0.01 X1000 (0.0-0.2); BASO% 0.1 % (0.0-0.8); HEMOGLOBIN 7.3 g/dL (12.0-16.0); IMM GRAN# 0.09 X1000 (0.0-0.04); IMM GRAN% 0.6 % (0.0-0.5); LYMPH# 0.51 X1000 (1.2-3.4); LYMPH% 3.4 % (20.5-51.1); MCH 30.2 PG (27-31); MCHC 30.4 g/dL (33-37); MCV 99.2 FL (81-99); MONO# 0.29 X1000 (0.11-0.59); MONO% 1.9 % (1.7-9.3); MPV 12.8 FL (7.4-10.4); NEUT# 14.27 X1000 (1.4-6.5); PLT 226 X1000 (130-400); RBC 2.42 XMIL (4.2-5.4); RDW 14.7 % (11.5-14.5); WBC 15.17 X1000 (4.8-10.8)
[2018-12-09 13:48] LABS: LYMPHS 2 % (21-51); MONO 1 % (1-9); SEGS 97 % (42-75)
--- NOTE | 2018-12-09 14:57 | PROGRESS NOTE ---
DATE: 12/09/2018 INTERVAL HISTORY: O2 requirements continue to improve slowly. No further bleeding from chest tube site since re-stitching by Surgery yesterday. The patient's only complaints remain left-sided pain and anxiety. REVIEW OF SYSTEMS: Twelve point review of systems negative except as per interval history. LABS: CBC this morning appears to be in error. Repeat CBC with WBC of 15.1, hemoglobin 7.3, hematocrit 24, platelets 226,000. ABG with a pH 7.4, pCO2 40, PO2 113, O2 saturation 99% on 6 L by nasal cannula. Sodium 136, initial potassium 2.7, repeat potassium 3.3, chloride 95, bicarb 28, BUN 45, creatinine 1.4, glucose 200. IMAGING: Chest x-ray with improving left pneumothorax, only tiny residual pneumothorax at the left costophrenic angle. Chest tube in place. VITAL SIGNS: T-max 98.5, pulse 81, respiratory rate 14, blood pressure 106/59, O2 saturation is 97% on 6 L by nasal cannula. PHYSICAL EXAMINATION: General: No acute distress. Chronically ill appearing. Vitals: As above. HEENT: Normocephalic, atraumatic. Moist mucous membranes. No cervical adenopathy. Cardiovascular: Regular rate and rhythm. No murmurs, rubs, or gallops. Respiratory: Still some scattered rhonchi but improved from previous. Chest tube noted in the left chest wall. Bandage clean, dry, and intact. Abdomen: Soft, nontender, nondistended. Bowel sounds positive. Extremities: Peripheral pulses intact. No clubbing, cyanosis, or edema. Neurologic: Cranial nerves II-XII grossly intact. Mild global weakness but no focal deficit identified. Psychiatric: Normal mood and affect. Awake, alert, and oriented x3. Skin: No new rashes or lesions identified. ASSESSMENT AND PLAN: 1. Acute hypoxic respiratory failure: Multifactorial with initial drug overdose leading to aspiration pneumonia. Initially required intubation but extubated for several days now. Underlying chronic obstructive pulmonary disease and recent pneumothorax also likely contributing, but has had slow, but steady improvement in oxygen requirements over the last two to three days, today down to nasal cannula. Continue antibiotics for now but can likely discontinue in the next 24 to 48 hours if she continues to improve. Continue steroids and DuoNebs. Pulmonology following. 2. Left pneumothorax: Large pneumothorax on the left 12/07. Chest tube placed by Dr. Mcbride at that time with almost immediate significant improvement in pneumothorax. Slight pneumothorax still present but pretty minimal at this point. 3. Chronic obstructive pulmonary disease: Still no wheezing and reasonable air entry. No signs of exacerbation at this time. 4. Chronic opioid and benzodiazepine dependence: Patient with multiple previous accidental overdoses. Continues to request higher doses of pain medicine and benzodiazepines, but has never appeared uncomfortable aside from at the time of her pneumothorax. Allowing small doses of Dilaudid currently, given recent pneumothorax and current chest tube in place. Plan on discontinuing Dilaudid once pneumothorax resolves and chest tube is out. Continues to decline any non narcotic agents. 5. Shock liver, now resolved. 6. Hypertension: Good control on current regimen. Continue to monitor vitals. 7. Gastroesophageal reflux disease. Continue proton pump inhibitor. 8. Hypothyroidism. Continue Synthroid. 9. Oral ulcers: Resolving slowly. No new ulcers or skin rashes. Magic Mouthwash as needed. 10. Deep vein thrombosis prophylaxis with Lovenox. 11. Disposition, rehabilitation versus home health once pneumothorax resolves, chest tube is out, and oxygenation improved. Hopefully, either late this week or early next week.
--- NOTE | 2018-12-09 15:33 | GENERAL SURGERY PROGRESS NOTE ---
DATE: 12/09/2018 SUBJECTIVE: The patient complains of pain on her left side. OBJECTIVE: Vital Signs: She is afebrile. Her vital signs are stable. General: She is awake, alert, oriented x3. No acute distress. Respiratory: Bilateral breath sounds. No increased work of breathing. Chest: On chest exam, her chest tube is intact. There does appear to be an ongoing air leak in the drainage system. IMAGING STUDIES: Chest x-ray shows decreased size of the left pneumothorax. It is small in the left costophrenic angle. ASSESSMENT AND PLAN: A 58-year-old female with left pneumothorax, pneumonia, chronic obstructive pulmonary disease. We will continue her chest tube to suction. The bleeding from the catheter site has stopped. cc: Sudhakar Mcbride MD
[2018-12-10] MEDS: NORCO-5 PO PRN ×3 (02:09→18:43)
[2018-12-10] MEDS: DUONEB (A & A) INH SCH ×7 (03:33→23:38)
[2018-12-10] MEDS: VANCOMYCIN ORAL SOLN PO SCH ×5 (03:34→19:58)
[2018-12-10] MEDS: XANAX PO SCH ×4 (03:47→22:11)
[2018-12-10] MEDS: ZOSYN 3.375 GM in NS 50 ML IV SCH ×4 (03:47→22:12)
[2018-12-10] MEDS: DILAUDID IV PRN ×6 (03:56→23:52)
--- NOTE | 2018-12-10 04:05 | PULMONOLOGY PROGRESS NOTE ---
DATE: 12/09/2018 SUBJECTIVE: The patient continues to have some chest pain in the left chest. She reports her breathing has improved. OBJECTIVE: Vital Signs: The patient has been afebrile for the last 24 hours. Blood pressure 94/53, heart rate 87, respiratory rate 16, oxygen saturation is 98%. HEENT: Pupils are equal and reactive. Oropharynx is clear. Neck: Supple. Chest: Reveals a prolonged expiratory phase. She continues to have a significant air leak through her small bore chest tube. Cardiac: S1 and S2. Abdomen: Soft and without hepatosplenomegaly. Extremities: Without edema. LABORATORIES: Chest x-ray reveals continued small pneumothorax which has slightly decreased in size. IMPRESSION: The patient is a 58-year-old with severe chronic obstructive pulmonary disease, spontaneous pneumothorax, left lower lobe pneumonia, chronic pain syndrome, and acute hypoxemic respiratory failure. She had some bleeding at the chest tube site but this has resolved. Clinically she is improving but continues to have a leak from the chest tube. RECOMMENDATIONS: 1. Continue chest tube management to wall suction. 2. Continue antibiotics. 3. Continue bronchial hygiene. 4. Encourage the patient to discontinue smoking. cc: Jossue Alvarado MD
[2018-12-10 05:48] LABS: ALLEN TEST YES; BE 4.6 mmoll (-3.0-3.0); BLOOD TYPE ARTERIAL; HCO3-(ACT) 28.5 mmoll (20.0-26.0); METHB 0.3 % (0.0-1.5); O2(CT) 8.7 mL/dL (15.0-23.0); O2HB 93.8 % (95.0-99.0); PO2(98.6) 63 mmHg (60-100); SAMPLE BLOOD; SAO2 96.2 % (95.0-100.0); THB 6.5 g/dL (11.5-17.4); pH(98.6) 7.38 (7.35-7.45)
[2018-12-10 05:51] LABS: MODALITY CANNULA; PCO2(98.6) 51 mmHg (35-45)
[2018-12-10] MEDS: SYNTHROID PO SCH (06:04)
[2018-12-10] MEDS: TORADOL IV PRN ×3 (06:04→18:43)
[2018-12-10] MEDS ORDERED: SYNTHROID PO SCH (07:00)
--- NOTE | 2018-12-10 07:34 | Diag Imaging Result Doc PS360 ---
EXAM: CHEST-PORTABLE INDICATION: pneumothorax TECHNIQUE: One view COMPARISON: 12/09/2018 FINDINGS: The small caliber left chest tube is in approximately stable position. During the interval, the left basilar pneumothorax has increased in size. It occupies approximately 20% of the left hemithorax. There is also increased subcutaneous edema overlying the left chest wall. No new consolidation is identified. Cardiac silhouette is stable. IMPRESSION: Interval increase in size of the left pneumothorax as described. Electronically signed by Reuben Quiles 12/10/2018 7:32 AM
[2018-12-10] MEDS: PERIDEX MT SCH ×2 (08:04→19:59)
[2018-12-10] MEDS: PROTONIX IV SCH ×2 (08:04→20:09)
[2018-12-10] MEDS: SOLU-MEDROL IV SCH ×3 (08:04→20:09)
[2018-12-10] MEDS: MUCINEX PO SCH ×3 (08:04→20:09)
[2018-12-10] MEDS: LASIX IV SCH ×3 (08:04→20:10)
--- NOTE | 2018-12-10 10:00 | Diag Imaging Result Doc PS360 ---
EXAM: CT THORAX/NECK W/O CONTRAST 12/10/2018 HISTORY: pneumothorax, pneumonia TECHNIQUE: CT of the neck without contrast; CT of the chest without contrast. COMMENT: There are no previous examinations of the soft tissue neck. Where possible comparison is made with the CT of the cervical spine dated 10/28/2018. The salivary glands are symmetrical in appearance. The nasopharynx is unremarkable. The pharynx is unremarkable. There is calcification in both carotid bulbs. The epiglottis is normal in appearance. There is no evidence of significant adenopathy. There are spondylotic changes in the cervical spine. There is opacification of the mastoid air cells bilaterally worse on the right than the left. This is worse than on the previous examination. Thorax: The current examination is compared with the previous study of 12/01/2018. There is a left-sided pneumothorax. There is extensive soft tissue emphysema in the left chest. There is a small caliber chest tube on the left. There is a bulla seen anteriorly in the lingula on image 62. This was not apparent on the previous study. There is adjacent atelectasis or pneumonitis. There is pleural fibrosis with parenchymal opacification and cystic bronchiectasis in the posterior right apex consistent with previous granulomatous disease. This was also present on the previous study. There is emphysematous change in both upper lung zones. There is atelectasis in the left lower lobe. This was also present previously. The possibility of pneumonia in the left lower lobe cannot be excluded. There are extensive coronary calcifications. There is no evidence of significant adenopathy. There is a small amount of pleural fluid bilaterally particularly on the left side. IMPRESSION: 1. Left pneumothorax. This is despite the presence of the small chest tube. Small left pleural effusion. 2. Complete atelectasis of the left lower lobe plus minus pneumonia. 3. Bilateral mastoid effusions. Electronically signed by Dick Coronado 12/10/2018 9:58 AM
[2018-12-10 12:11] LABS: BASO# 0.01 X1000 (0.0-0.2); BASO% 0.1 % (0.0-0.8); HEMATOCRIT 21.3 % (37.0-47.0); HEMOGLOBIN 6.6 g/dL (12.0-16.0); IMM GRAN# 0.21 X1000 (0.0-0.04); IMM GRAN% 1.4 % (0.0-0.5); LYMPH# 0.55 X1000 (1.2-3.4); LYMPH% 3.8 % (20.5-51.1); MCH 30.7 PG (27-31); MCV 99.1 FL (81-99); MONO% 2.1 % (1.7-9.3); MPV 12.4 FL (7.4-10.4); NEUT# 13.53 X1000 (1.4-6.5); NEUT% 92.6 % (42.2-75.2); PLT 274 X1000 (130-400); RBC 2.15 XMIL (4.2-5.4); RDW 15.1 % (11.5-14.5)
[2018-12-10 12:18] LABS: CALCIUM 8.5 mg/dL (8.8-10.2); CREATININE 1.1 mg/dL (0.5-0.9); POTASSIUM 3.7 mmol/L (3.5-5.1)
[2018-12-10 12:31] LABS: LYMPHS 8 % (21-51); MONO 6 % (1-9); SEGS 86 % (42-75)
--- NOTE | 2018-12-10 14:45 | PROGRESS NOTE ---
DATE: 12/10/2018 INTERVAL HISTORY: Patient oxygenation continued to improve, but still with small left pneumothorax on CT despite chest tube. No other acute events overnight. The patient with stable complaints of left-sided pain and anxiety. The patient again complained that her Xanax had been decreased. I again explained to patient that she has been on the same dose of Xanax for the duration of her hospitalization. REVIEW OF SYSTEMS: Twelve point review of systems negative, except as per interval history. LABS: WBC 14.6, hemoglobin 6.6, hematocrit 21.3, platelets 274. ABG with pH 7.38, pCO2 51, PO2 63 on 5 L by nasal cannula. Sodium 140, potassium 3.7, BUN 39, creatinine 1.1, glucose 114. VITALS: T-max 98.9 degrees, pulse 86, respirations 16, blood pressure 131/68, O2 saturation 97% on 4 L by nasal cannula. IMAGING: Chest x-ray with possible slight increase in size of the left pneumothorax. CT chest confirming rather remaining left pneumothorax. Also, with atelectasis of the left lower lobe with possible pneumonia. PHYSICAL EXAMINATION: General: Initially asleep, but in no acute distress. Vitals: As above. HEENT: Normocephalic, atraumatic. Moist mucous membranes. No cervical adenopathy. Cardiovascular: Regular rate and rhythm. No murmurs, rubs, or gallops. Respiratory: Scattered rhonchi remain with mildly decreased air entry throughout. Chest tube in left chest wall. Bandage clean, dry, intact. Abdomen: Soft, nontender, nondistended. Bowel sounds positive. Extremities: Peripheral pulses intact. No clubbing, cyanosis, or edema. Neurologic: Cranial nerves 2-12 grossly intact. Mild global weakness, but no focal deficit identified. Psychiatric: Normal mood and affect. Initially asleep, but aroused easily, and then awake, alert, and oriented x3. Skin: No new rashes or lesions identified. ASSESSMENT AND PLAN: 1. Acute hypoxic respiratory failure, multifactorial with initial drug overdose leading to aspiration pneumonia requiring intubation. Has been extubated for almost a week at this point, and hypoxia appears to be improving slowly despite the left pneumothorax as below. Given ongoing possible pneumonia on CT, we will continue antibiotics for now and Pulmonology following. 2. Left pneumothorax. Large pneumothorax on the left on 12/07. Chest tube placement by Dr. Mcbride at that time with immediate near resolution of pneumothorax. However, increased slightly thereafter. CT this morning still with partial pneumothorax of the left lung. Chest tube still in place, but may have to be adjusted. 3. Chronic obstructive pulmonary disease. No wheezing. Reasonable air entry. No signs of exacerbation at this time. 4. Chronic opioid and benzodiazepine dependence. Patient with multiple previous accidental overdoses. Continues to require higher doses of pain medicine occasionally and benzodiazepines at every encounter, but has never appeared uncomfortable aside from at the time of her pneumothorax. Lungs: Small doses of Dilaudid currently given, recent pneumothorax and current chest tube. Continues to decline. Non narcotic/benzodiazepine agents aside from Toradol. 5. Shock liver, now resolved. 6. Hypertension, good control on current regimen. Continue to monitor vitals. 7. Gastroesophageal reflux disease. Continue proton pump inhibitor. 8. Hypothyroidism. Continue Synthroid. 9. Oral ulcers, resolving slowly. No new ulcers or skin rashes. Magic mouthwash as needed. 10. Anemia. The patient did have significant oozing around her chest tube when it was initially placed. Surgery then placed additional suture with no further bleeding since then, but hemoglobin and hematocrit have had a downtrend down to 6.6 hemoglobin today. We will transfuse 1 unit and monitor. 11. Deep vein thrombosis prophylaxis. Lovenox. 12. Disposition: Rehabilitation versus home health once the pneumothorax resolves, chest tube is out and oxygenation improves. Hopefully, either late this week or early next week.
[2018-12-10] MEDS: MBX SOLUTION MT PRN (15:59)
[2018-12-10] MEDS ORDERED: NS 500 ML IV ONE (16:00)
[2018-12-11] MEDS: NORCO-5 PO PRN ×3 (02:57→18:39)
[2018-12-11] MEDS: VANCOMYCIN ORAL SOLN PO SCH ×4 (02:57→16:14)
[2018-12-11] MEDS: DUONEB (A & A) INH SCH ×5 (03:38→19:05)
[2018-12-11 03:55] LABS: ALLEN TEST YES; BE 6.9 mmoll (-3.0-3.0); BLOOD TYPE ARTERIAL; HCO3-(ACT) 30.3 mmoll (20.0-26.0); METHB 1.7 % (0.0-1.5); O2(CT) 11.5 mL/dL (15.0-23.0); O2HB 93.4 % (95.0-99.0); PCO2(98.6) 37 mmHg (35-45); PO2(98.6) 69 mmHg (60-100); SAMPLE BLOOD; SAO2 96.7 % (95.0-100.0); THB 8.7 g/dL (11.5-17.4); pH(98.6) 7.52 (7.35-7.45)
[2018-12-11 03:56] LABS: MODALITY CANNULA
[2018-12-11] MEDS: XANAX PO SCH ×4 (04:05→16:12)
[2018-12-11] MEDS: DILAUDID IV PRN ×5 (04:05→21:35)
[2018-12-11] MEDS: ZOSYN 3.375 GM in NS 50 ML IV SCH ×4 (04:06→21:41)
[2018-12-11] MEDS ORDERED: BLISTEX MEDICATED BERRY LIP BALM TOP PRN (04:14)
--- NOTE | 2018-12-11 05:16 | GENERAL SURGERY PROGRESS NOTE ---
DATE: 12/10/2018 SUBJECTIVE: The patient continues to complain of left-sided chest pain, and she is anxious. OBJECTIVE: Vital signs: She is afebrile. Pulse in the 80s. Blood pressure 131/68. O2 saturation 97%. Urine output 2425 mL. Chest tube output 4 mL. General: She is anxious, but alert and oriented. CV: Regular rate and rhythm. Respiratory: Bilateral breath sounds. No increased work of breathing. The chest tube does not appear to be having air leak today. IMAGING: A chest x-ray this morning showed worsening of the pneumothorax and increased subcutaneous edema of the left lateral chest wall. A CT of the chest today showed left pneumothorax with extensive soft tissue emphysema of the left chest. There is a bulla on the lingula. There is also adjacent atelectasis and pneumonitis. There is emphysematous changes in both upper lung zones and atelectasis in the left lower lobe. There is possible pneumonia in the left lower lobe. LABORATORY: White blood cell count 14,000, hemoglobin 6.6, hematocrit 21.3, platelet count 274,000. Electrolytes reviewed and unremarkable. ASSESSMENT AND PLAN: A 58-year-old female with left pneumothorax and pneumonia. She has had worsening of the pneumothorax, so I have increased the suction to the chest tube today. We will repeat an x-ray in the morning and if it is not improved, then we are planning placement of left chest tube with anesthesia tomorrow. cc: Sudhakar Mcbride MD
[2018-12-11] MEDS: TORADOL IV PRN ×3 (06:04→18:39)
[2018-12-11] MEDS: SYNTHROID PO SCH (06:05)
[2018-12-11 06:17] LABS: CALCIUM 7.9 mg/dL (8.8-10.2); CREATININE 1.2 mg/dL (0.5-0.9); POTASSIUM 3.6 mmol/L (3.5-5.1)
[2018-12-11 06:30] LABS: BASO# 0.01 X1000 (0.0-0.2); BASO% 0.1 % (0.0-0.8); HEMATOCRIT 25.9 % (37.0-47.0); HEMOGLOBIN 8.1 g/dL (12.0-16.0); IMM GRAN% 2.1 % (0.0-0.5); LYMPH# 0.95 X1000 (1.2-3.4); LYMPH% 6.5 % (20.5-51.1); MCH 29.7 PG (27-31); MCHC 31.3 g/dL (33-37); MCV 94.9 FL (81-99); MONO# 0.56 X1000 (0.11-0.59); MONO% 3.9 % (1.7-9.3); MPV 12.6 FL (7.4-10.4); NEUT# 12.71 X1000 (1.4-6.5); NEUT% 87.4 % (42.2-75.2); PLT 259 X1000 (130-400); RBC 2.73 XMIL (4.2-5.4); RDW 18.2 % (11.5-14.5); WBC 14.53 X1000 (4.8-10.8)
[2018-12-11] MEDS ORDERED: SODIUM CHLORIDE 0.9% 10 ML ONE ×2 (06:42→15:25)
--- NOTE | 2018-12-11 07:17 | Diag Imaging Result Doc PS360 ---
EXAM: CHEST-PORTABLE 12/11/2018 HISTORY: pneumothorax TECHNIQUE: AP portable at 0551 COMMENT: There is a small caliber chest tube on the left. There is continued soft tissue emphysema in the left chest wall, this is actually worse than on 12/10/2018. The pneumothorax which was previously present is almost completely resolved however. Otherwise the appearance the chest has not changed significantly. IMPRESSION: Improved left pneumothorax with increasing soft tissue emphysema. Electronically signed by Dick Coronado 12/11/2018 7:15 AM
--- NOTE | 2018-12-11 07:40 | PULMONOLOGY PROGRESS NOTE ---
DATE: 12/10/2018 SUBJECTIVE: The patient is awake and alert. She is asking for additional pain and anxiety medicine. OBJECTIVE: Vital Signs: BP 106/47, heart rate 93, respiratory rate 16, oxygen saturation 97% on 3 L per nasal cannula. HEENT: Pupils are equal and reactive. Oropharynx is clear. Neck: Supple. Chest: Reveals some crepitus in the left chest wall. Cardiac: S1, S2. Abdomen: Soft and without hepatosplenomegaly. Extremities: Without edema. IMAGING AND LABORATORY DATA: CT scan of the thorax is reviewed and reveals a 20% pneumothorax on the left with subcutaneous air in the chest wall and atelectasis of the left basilar segments. Arterial blood gas on nasal cannula shows pH 7.38, pCO2 of 51, PO2 of 63. White blood count 14,000, hemoglobin 6.6, platelet count 274,000. IMPRESSION: A 58-year-old with severe chronic obstructive pulmonary disease, spontaneous pneumothorax, left lower lobe pneumonia, chronic anxiety, chronic pain syndrome, with hypoxemic respiratory failure. CT scan of the thorax reveals continued pneumonia in the left base, and the airway segments cannot be visualized. She does have a moderate pneumothorax with a specific air leak. I believe she will likely require a larger chest tube, and may ultimately require a thoracoscopy. It is recommended that when a larger bore chest tube is placed, that she undergo a bronchoscopy at the same time to evaluate the left lower lobe. RECOMMENDATIONS: 1. Anticipate larger bore chest tube placement. This will have to be placed in the OR given her chronic pain issues. 2. Continue antibiotics. 3. Encourage the patient to discontinue tobacco use. 4. Encourage visualization of the basilar segments of the left lower lobe via bronchoscopy at the time of chest tube placement. cc: Jossue Alvarado MD
[2018-12-11] MEDS: SOLU-MEDROL IV SCH ×2 (08:56→21:40)
[2018-12-11] MEDS: PERIDEX MT SCH ×2 (08:57→21:41)
[2018-12-11] MEDS: LASIX IV SCH ×2 (08:57→21:40)
[2018-12-11] MEDS: PROTONIX IV SCH ×2 (08:57→21:41)
[2018-12-11] MEDS: MUCINEX PO SCH ×3 (09:11→21:41)
[2018-12-11] MEDS ORDERED: ZOFRAN ONE (09:46)
[2018-12-11] MEDS ORDERED: QUELICIN (DOSE) ONE (09:46)
[2018-12-11] MEDS ORDERED: XYLOCAINE-MPF 2% ONE (09:46)
[2018-12-11] MEDS ORDERED: XYLOCAINE 1%/EPI 1:100,000 ONE (09:47)
[2018-12-11] MEDS ORDERED: DIPRIVAN 1% ONE (09:47)
[2018-12-11] MEDS ORDERED: FENTANYL ONE (09:47)
[2018-12-11] MEDS: DILAUDID ONE ×2 (11:16→11:25)
--- NOTE | 2018-12-11 11:22 | OPERATIVE NOTE ---
PROCEDURE DATE: 12/11/2018 PREOPERATIVE DIAGNOSES: 1. Pneumonia. 2. Left pneumothorax. POSTOPERATIVE DIAGNOSES: 1. Pneumonia. 2. Left pneumothorax. SURGEON: Sudhakar Mcbride MD. ANESTHESIA: General LMA. PROCEDURE: 1. Left chest tube placement. 2. Bronchoscopy with washings and culture. ESTIMATED BLOOD LOSS: Scant. COMPLICATIONS: None apparent. FINDINGS: She had mucus near the thalia and in the left lower lobe bronchials. No obstructing tumor was found. No gross pus was seen. TECHNIQUE: The patient was brought to the operating room and placed supine on the table. General LMA anesthesia was induced. Her left chest was prepped and draped in usual sterile fashion after removing her previous small bore catheter. In the anterior axillary line, at about the fourth or fifth intercostal space, the skin was anesthetized with lidocaine. An incision was made with a knife. A Nori clamp was used to dissect down bluntly to the intercostal space, and the pleural space was entered bluntly with the tip of the Nori clamp. I swept my finger in the pleural space. There were no adhesions. There was some air rushing out confirming proper entry. A 28- Faroese chest tube was then directed into the pleural space in a superior-posterior direction. It was sewn to the skin with silk suture, and an occlusive dressing was applied. I then performed a bronchoscopy through the LMA. The thalia was viewed. I then examined the right main bronchus and upper middle and lower lobe bronchials. There was some scattered mucus debris, but no gross pus or tumor seen. I then retracted back to the thalia and went on to the left main bronchus. The upper and lower lobes were examined and terminal bronchials. There was heavier amounts of mucus in the left lower bronchials, however, no obstructing tumor was seen or gross pus. I did do some washings with saline and suctioned out the mucus and washings for culture and sensitivity. I then removed the bronchoscope. She was awakened in stable condition and transferred to recovery room. cc: Sudhakar Mcbride MD
[2018-12-11] MEDS ORDERED: OFIRMEV 1000 MG/ISOTONIC SOLN 1,000 MG/100 ML BOTTLE ONE (11:41)
--- NOTE | 2018-12-11 11:41 | Diag Imaging Result Doc PS360 ---
EXAM: CHEST-PORTABLE 12/11/2018 HISTORY: s/p chest tube and bronchoscopy TECHNIQUE: AP upright at 1132 COMMENT: There is marked left chest wall subcutaneous and deeper soft tissue emphysema. There is now some gas seen in the supraclavicular region on the left. The small caliber chest tube has been replaced with a larger caliber chest tube. There is an apical pneumothorax which was not appreciated on the previous examination measuring 7 mm at the apex. There is retrocardiac left lower lobe atelectasis. IMPRESSION: Worsening soft tissue emphysema and small left pneumothorax. Left lower lobe atelectasis. Electronically signed by Dick Coronado 12/11/2018 11:39 AM
[2018-12-11] MEDS ORDERED: ZOFRAN IV PRN (19:19)
[2018-12-11] MEDS: XANAX PO PRN (21:41)
[2018-12-11] MEDS: MBX SOLUTION MT PRN (23:48)
[2018-12-12] MEDS: VANCOMYCIN ORAL SOLN PO SCH ×4 (00:02→17:07)
[2018-12-12] MEDS: NORCO-5 PO PRN (00:09)
[2018-12-12] MEDS: DILAUDID IV PRN ×6 (01:19→22:29)
[2018-12-12] MEDS: TORADOL IV PRN ×4 (03:25→23:40)
[2018-12-12] MEDS: ZOSYN 3.375 GM in NS 50 ML IV SCH ×3 (03:31→22:08)
[2018-12-12 05:08] LABS: ALLEN TEST YES; BE 7.8 mmoll (-3.0-3.0); BLOOD TYPE ARTERIAL; METHB 1.1 % (0.0-1.5); O2(CT) 12.9 mL/dL (15.0-23.0); O2HB 94.7 % (95.0-99.0); PCO2(98.6) 50 mmHg (35-45); PO2(98.6) 77 mmHg (60-100); SAMPLE BLOOD; SAO2 97.4 % (95.0-100.0); THB 9.6 g/dL (11.5-17.4); pH(98.6) 7.43 (7.35-7.45)
[2018-12-12 05:13] LABS: MODALITY CANNULA
--- NOTE | 2018-12-12 05:17 | PROGRESS NOTE ---
DATE: 12/11/2018 SUBJECTIVE: The patient has no focal complaints. OBJECTIVE: Vital Signs: Blood pressure 152/80, heart rate of 16, respiratory rate of 107, temperature of 98.5 degrees. Cardiovascular: Regular rate and rhythm. Pulmonary: Bilateral breath sounds. Clear to auscultation. Gastrointestinal: Soft, nontender, and nondistended. Bowel sounds are positive. LABORATORY DATA: White count 14, hemoglobin and hematocrit 8 and 25, platelets 259,000. PH of 7.53, pCO2 of 37, PaO2 of 69, creatinine 1.2. Chest x-ray today shows worsening soft tissue emphysema and small left pneumothorax. PROBLEM LIST: 1. Hypoxic respiratory failure due to drug overdose, aspiration pneumonia requiring intubation. She is stable now. 2. Left pneumothorax. She has had a chest tube in place, now she has another chest tube in place that was put in in the OR. 3. Chronic obstructive pulmonary disease. We will continue breathing treatments. 4. Chronic opioid and benzodiazepine dependence, recurring. She just wants to continue pain medication. 5. Hypothyroid. Continue treatments. 6. Anemia. She did have a drop in her hemoglobin and hematocrit, but that has stabilized. DISPOSITION: She will likely need rehabilitation when stabilized. Continue to follow closely. cc: Mayo Maldonado MD
[2018-12-12] MEDS: DUONEB (A & A) INH SCH ×6 (05:23→19:00)
[2018-12-12] MEDS: XANAX PO PRN ×3 (05:29→21:55)
[2018-12-12 06:23] LABS: BASO# 0.01 X1000 (0.0-0.2); BASO% 0.1 % (0.0-0.8); HEMATOCRIT 26.6 % (37.0-47.0); HEMOGLOBIN 8.2 g/dL (12.0-16.0); IMM GRAN# 0.23 X1000 (0.0-0.04); IMM GRAN% 1.4 % (0.0-0.5); LYMPH# 0.83 X1000 (1.2-3.4); LYMPH% 5.1 % (20.5-51.1); MCH 29.6 PG (27-31); MCHC 30.8 g/dL (33-37); MONO# 0.53 X1000 (0.11-0.59); MONO% 3.3 % (1.7-9.3); MPV 12.5 FL (7.4-10.4); NEUT# 14.69 X1000 (1.4-6.5); NEUT% 90.1 % (42.2-75.2); PLT 271 X1000 (130-400); RBC 2.77 XMIL (4.2-5.4); RDW 18.1 % (11.5-14.5); WBC 16.29 X1000 (4.8-10.8)
[2018-12-12 06:48] LABS: CALCIUM 8.5 mg/dL (8.8-10.2); CREATININE 1.1 mg/dL (0.5-0.9); POTASSIUM 3.9 mmol/L (3.5-5.1)
[2018-12-12] MEDS: SYNTHROID PO SCH (06:50)
[2018-12-12] MEDS: LOVENOX SUBQ SCH (06:50)
[2018-12-12] MEDS ORDERED: SODIUM CHLORIDE 0.9% 10 ML ONE ×2 (06:53→15:26)
--- NOTE | 2018-12-12 07:40 | Diag Imaging Result Doc PS360 ---
CHEST-PORTABLE - 12/12/2018 INDICATION: left pneumothorax COMPARISON: 12/11/2018 FINDINGS: Stable left chest tube in good position. Stable extensive subcutaneous emphysema on the left. There is probably a trace left pneumothorax stable from prior. There is patchy infiltrate or atelectasis in the left lung base. No new infiltrates. IMPRESSION: Trace left pneumothorax. No change from prior. Electronically signed by Devin Russo 12/12/2018 7:38 AM
--- NOTE | 2018-12-12 08:02 | PULMONOLOGY PROGRESS NOTE ---
DATE: 12/11/2018 INTERIM HISTORY: The patient is complaining of chest pain. The patient had a new larger bore chest tube placed in the left chest earlier today. She also underwent a bronchoscopy by Dr. Mcbride. He evaluated the airways, and no endobronchial lesions were identified and no tumor was identified blocking the airway segments to the left lower lobe. Bronchial washings were performed and are pending. OBJECTIVE: Vital Signs: Blood pressure 152/80, heart rate 107, respiratory rate 16 and unlabored. Oxygen saturation 98%. HEENT: Pupils are equal and reactive. Oropharynx is clear. Neck: Supple. Chest: Reveals some subcutaneous air on the left. There is bubbling with cough from the chest tube. Abdomen: The abdomen is soft. Extremities without edema. LABORATORIES: Chest x-ray reveals soft-tissue emphysema following chest tube placement and bronchoscopy with small left pneumothorax. IMPRESSION: A 58-year-old with severe COPD, spontaneous pneumothorax, left lower lobe pneumonia, chronic anxiety, chronic pain requirements, with acute hypoxemic respiratory failure. Bronchoscopy is reassuring that there is no endobronchial lesion delaying clearance of the left lower lobe pneumonia. Hopefully with a larger chest tube, the lung will expand and seal and she will not require a thoracotomy or thoracoscopy. RECOMMENDATIONS: 1. Continue large bore chest tube as you are doing. 2. Continue current antibiotics pending results of bronchoscopy data. 3. Encourage the patient to discontinue all tobacco products. cc: Jossue Alvarado MD
[2018-12-12] MEDS: SOLU-MEDROL IV SCH (10:04)
[2018-12-12] MEDS: MUCINEX PO SCH ×2 (10:05→22:12)
[2018-12-12] MEDS: LASIX IV SCH (10:06)
[2018-12-12] MEDS: PROTONIX IV SCH ×2 (10:07→22:11)
[2018-12-12] MEDS: PERIDEX MT SCH ×2 (10:08→22:12)
--- NOTE | 2018-12-12 10:13 | GENERAL SURGERY PROGRESS NOTE ---
DATE: 12/12/2018 SUBJECTIVE: The patient continues to complain of pain, anxiety, restlessness, trouble and difficulty sleeping. OBJECTIVE: She is afebrile. Vital signs are stable. O2 saturation 95 to 98 percent. Respiratory rate 16. Pulse 80s. Temperature 98.6 degrees. Blood pressure 125/77. Chest tube output 45 mL. No air leak observed. PHYSICAL EXAMINATION: General: She is awake and alert, and somewhat labile emotionally, but this is stable for her over her hospital course as I have observed. Respiratory: Bilateral breath sounds. No increased work of breathing. Chest: Her exam does reveal subcutaneous emphysema of the left anterior chest wall into the neck. The chest tube site was examined. I could not appreciate any leakage of air around the tube. LABORATORY DATA: White cell count 16,000. Hemoglobin 8.2. Hematocrit 26. ABG reviewed and stable. Electrolytes reviewed and stable. IMAGING: Chest x-ray from yesterday and today shows trace left pneumothorax and stable, extensive subcutaneous emphysema and a patchy infiltrate or atelectasis in the left lung base. No new infiltrates appreciated. ASSESSMENT AND PLAN: A 58-year-old female with left pneumothorax, pneumonia, and subcutaneous emphysema. We will treat her pain as needed. Continue the chest tube to suction and await resolution of her air leak and subcutaneous emphysema. If she continues to have leakage of air through the weekend, then we will plan thoracoscopy and lobectomy next week. cc: Sudhakar Mcbride MD
[2018-12-12] MEDS: NORCO-10 PO PRN ×2 (13:48→20:28)
[2018-12-12] MEDS: LASIX PO SCH (22:19)
--- NOTE | 2018-12-12 23:39 | PROGRESS NOTE ---
DATE: 12/12/2018 114/70, heart rate of 85, respiratory rate of 16, temperature 98.1 degrees 97% on 2 L. Cardiovascular: Regular rate and rhythm. Pulmonary: Bilateral breath sounds clear to auscultation. GI: Was soft, nontender, nondistended. Bowel sounds are positive. She has subcutaneous emphysema noted over her anterior chest, left shoulder, a little bit into her neck consistent with crepitus or crepitus consistent with subcutaneous emphysema. LABORATORY DATA: Her white count 16, hemoglobin and hematocrit is 8 and 26, platelets of 271,000. Blood gas look stable. BUN and creatinine 36 and 1.1. PROBLEM LIST: 1. Hypoxic respiratory failure associated with overdose, aspiration pneumonia requiring intubation. She is stable on oxygen now in any case she is doing well. 2. Left pneumothorax. She has a chest tube in place and is slowly improving. Care per surgical consultants. 3. Chronic obstructive pulmonary disease. She is on breathing treatments. I am going to wean her steroids because she has got some persistent leukocytosis. 4. Chronic opioid and benzodiazepine dependence, we will have to wean down her medicines as much as possible. Today is a good day she looks pretty stable. 5. Hypothyroid. Continue her Synthroid. 6. Anemia has been stable currently. 7. Disposition pending her clinical status. I think we are looking at rehab if that is an option. 8. Clostridium difficile colitis. She has been on vancomycin for about 2 weeks so I am going to go ahead and stop it. She was Clostridium difficile antigen positive but not Clostridium difficile toxin positive but will continue to follow. cc: Mayo Maldonado MD
[2018-12-13] MEDS: NORCO-10 PO PRN ×4 (02:38→23:05)
[2018-12-13] MEDS: ZOSYN 3.375 GM in NS 50 ML IV SCH ×5 (03:38→23:06)
[2018-12-13] MEDS: DILAUDID IV PRN ×5 (03:38→19:51)
[2018-12-13] MEDS: DUONEB (A & A) INH SCH ×6 (05:22→23:06)
[2018-12-13] MEDS: TORADOL IV PRN ×4 (05:32→23:05)
[2018-12-13 05:50] LABS: BASO# 0.01 X1000 (0.0-0.2); BASO% 0.1 % (0.0-0.8); EOS# 0.05 X1000 (0.0-0.7); EOS% 0.4 % (0.0-10.0); HEMATOCRIT 25.5 % (37.0-47.0); HEMOGLOBIN 7.9 g/dL (12.0-16.0); IMM GRAN# 0.23 X1000 (0.0-0.04); IMM GRAN% 1.8 % (0.0-0.5); LYMPH# 1.31 X1000 (1.2-3.4); LYMPH% 10.2 % (20.5-51.1); MCH 30.2 PG (27-31); MCV 97.3 FL (81-99); MONO# 0.39 X1000 (0.11-0.59); MPV 12.3 FL (7.4-10.4); NEUT# 10.83 X1000 (1.4-6.5); NEUT% 84.5 % (42.2-75.2); PLT 262 X1000 (130-400); RBC 2.62 XMIL (4.2-5.4); RDW 17.7 % (11.5-14.5); WBC 12.82 X1000 (4.8-10.8)
[2018-12-13 05:59] LABS: ALLEN TEST YES; BE 10.1 mmoll (-3.0-3.0); BLOOD TYPE ARTERIAL; HCO3-(ACT) 32.8 mmoll (20.0-26.0); O2(CT) 11.6 mL/dL (15.0-23.0); O2HB 95.6 % (95.0-99.0); PO2(98.6) 70 mmHg (60-100); SAMPLE BLOOD; SAO2 99.1 % (95.0-100.0); THB 8.6 g/dL (11.5-17.4); pH(98.6) 7.41 (7.35-7.45)
[2018-12-13 06:01] LABS: MODALITY CANNULA
[2018-12-13 06:04] LABS: PCO2(98.6) 57 mmHg (35-45)
[2018-12-13 06:08] LABS: CALCIUM 7.8 mg/dL (8.8-10.2); CREATININE 1.2 mg/dL (0.5-0.9); POTASSIUM 2.8 mmol/L (3.5-5.1)
[2018-12-13] MEDS: LOVENOX SUBQ SCH (07:56)
[2018-12-13] MEDS: SYNTHROID PO SCH (07:56)
[2018-12-13] MEDS: XANAX PO PRN ×2 (07:56→15:50)
--- NOTE | 2018-12-13 08:39 | Diag Imaging Result Doc PS360 ---
EXAM: CHEST-PORTABLE INDICATION: pneumothorax TECHNIQUE: One view COMPARISON: 12/12/2018 FINDINGS: The left chest tube is in stable position. There is extensive subcutaneous emphysema mainly overlying the left chest wall. There is slightly more subcutaneous gas as compared to the previous study, especially on the right. There is a trace residual pneumothorax at the left lung base that appears marginally larger than the previous study. However, it is still less than 5% of the left hemithorax. No new consolidations are identified. Cardiac silhouette is stable. IMPRESSION: Some increase in subcutaneous emphysema and tiny residual left basilar pneumothorax that is marginally larger than the previous study. Electronically signed by Reuben Quiles 12/13/2018 8:36 AM
[2018-12-13] MEDS: PROTONIX IV SCH ×2 (09:17→23:04)
[2018-12-13] MEDS: PERIDEX MT SCH ×2 (09:18→23:04)
[2018-12-13] MEDS: SOLU-MEDROL IV SCH (09:18)
[2018-12-13] MEDS: MUCINEX PO SCH ×2 (09:18→23:04)
[2018-12-13] MEDS: LASIX PO SCH ×2 (09:18→23:05)
[2018-12-13] MEDS ORDERED: KLOR-CON PO ONE (11:46)
--- NOTE | 2018-12-13 13:11 | PROGRESS NOTE ---
DATE: 12/13/2018 SUBJECTIVE: Ms. Aziza Bolden is a 58-year-old, white female, who Dr. Mcbride has placed a left- sided chest tube for pneumothorax. She has continued to have an air leak and she has some subcutaneous emphysema in the supraclavicular area. She has mild shortness of breath. When examining the chest tube, she still has a small air leak. It must be noted that she is on methylprednisone 40 mg IV daily. I think if there is any chance of this air leak stopping, her steroids will have to be stopped. Dr. Mcbride feels like he may have to get more aggressive, even taking her surgery for VATS next week if this air leak persists. Again, I would consider stopping steroids. She is on IV antibiotics. OBJECTIVE: Her heart rate is 89, blood pressure 110/71, O2 saturation 100%. She is afebrile. She is having bowel movements and she is also voiding without difficulty. DIAGNOSTICS: Her white blood cell count is 12.82. Hematocrit is 25%. BUN and creatinine are 31 and 1.2. Chest x-ray showed some increase in subcutaneous emphysema. There is a tiny residual left basilar pneumothorax. Her chest tube remained on suction. cc: Yanelis Donnelly MD
--- NOTE | 2018-12-13 23:23 | PROGRESS NOTE ---
DATE: 12/13/2018 She says she does not know she is going to survive this but everything looks pretty good on her levels. She is coughing. She is doing well. OBJECTIVE: Blood pressure 97/66, heart rate of 122, respiratory rate 16, temperature 98.4 degrees, 92% on.Cardiovascular: Regular rate and rhythm. Pulmonary: Bilateral breath sounds clear to auscultation. GI: Soft, nontender, nondistended. Bowel sounds are positive. LABORATORY DATA: White count is 12, hemoglobin and hematocrit 7, 25, platelets 262,000, pH 7.4, pCO2 57, PaO2 70, potassium 2.8, creatinine 1.2. PROBLEM LIST: 1. Hypoxic respiratory failure with overdose with aspiration pneumonia requiring intubation. She is doing okay weaning O2 as tolerated. 2. Left pneumothorax. She is getting daily chest x-rays. There is a tiny residual left basilar pneumothorax that was a little bit bigger and then there has been a little bit more emphysema. 3. Chronic obstructive pulmonary disease is on breathing treatments. Will continue to follow, wean steroids. 4. Chronic opioid and benzodiazepines, will work harder on cessation once we can get her off her stuff. 5. Hypothyroidism. Continue Synthroid. 6. Clostridium difficile colitis. She seems to be doing better so stop her vancomycin or she has completed a course. DISPOSITION: Pending her clinical status. I think she is getting to the point where probably get her to rehab once her other issue is stabilized. cc: Mayo Maldonado MD
[2018-12-14] MEDS: DILAUDID IV PRN ×6 (00:03→20:11)
[2018-12-14] MEDS: XANAX PO PRN ×4 (00:08→22:01)
[2018-12-14] MEDS: ZOSYN 3.375 GM in NS 50 ML IV SCH ×5 (03:55→22:31)
[2018-12-14] MEDS: DUONEB (A & A) INH SCH ×6 (04:05→23:20)
[2018-12-14] MEDS: TORADOL IV PRN ×3 (05:20→19:26)
[2018-12-14] MEDS: NORCO-10 PO PRN ×4 (05:20→23:12)
[2018-12-14] MEDS: SYNTHROID PO SCH ×2 (05:20→08:11)
[2018-12-14] MEDS: LOVENOX SUBQ SCH (05:20)
[2018-12-14 05:39] LABS: BLOOD TYPE ARTERIAL; SAMPLE BLOOD; pH(98.6) 7.41 (7.35-7.45)
[2018-12-14 05:40] LABS: HCO3-(ACT) 33.3 mmoll (20.0-26.0); PCO2(98.6) 52 mmHg (35-45); PO2(98.6) 86 mmHg (60-100)
[2018-12-14 05:41] LABS: ALLEN TEST YES; MODALITY CANNULA
[2018-12-14 06:21] LABS: BASO# 0.02 X1000 (0.0-0.2); BASO% 0.2 % (0.0-0.8); EOS# 0.16 X1000 (0.0-0.7); EOS% 1.3 % (0.0-10.0); HEMATOCRIT 26.1 % (37.0-47.0); IMM GRAN# 0.18 X1000 (0.0-0.04); IMM GRAN% 1.5 % (0.0-0.5); LYMPH# 0.86 X1000 (1.2-3.4); LYMPH% 7.3 % (20.5-51.1); MCH 30.3 PG (27-31); MCHC 30.7 g/dL (33-37); MCV 98.9 FL (81-99); MONO# 0.27 X1000 (0.11-0.59); MONO% 2.3 % (1.7-9.3); MPV 12.3 FL (7.4-10.4); NEUT# 10.37 X1000 (1.4-6.5); NEUT% 87.4 % (42.2-75.2); PLT 229 X1000 (130-400); RBC 2.64 XMIL (4.2-5.4); RDW 17.8 % (11.5-14.5); WBC 11.86 X1000 (4.8-10.8)
[2018-12-14 07:03] LABS: CALCIUM 8.4 mg/dL (8.8-10.2); CREATININE 1.2 mg/dL (0.5-0.9); POTASSIUM 3.8 mmol/L (3.5-5.1)
[2018-12-14 07:32] LABS: EOS 1 % (1-10); LYMPHS 8 % (21-51); MONO 2 % (1-9); SEGS 89 % (42-75)
--- NOTE | 2018-12-14 08:30 | Diag Imaging Result Doc PS360 ---
EXAM: CHEST-1 VIEW INDICATION: SOB TECHNIQUE: One view COMPARISON: 12/13/2018 FINDINGS: The left chest tube is in stable position. Extensive subcutaneous emphysema around the chest amaya is similar to the previous study. There is only a trace residual pneumothorax at the periphery of the left lung base that has decreased in size further. No new consolidation is identified. Cardiac silhouette is stable IMPRESSION: Trace left basilar pneumothorax that has further decreased in size. Essentially stable chest, otherwise. Electronically signed by Reuben Quiles 12/14/2018 8:27 AM
[2018-12-14] MEDS: MUCINEX PO SCH ×2 (09:24→20:12)
[2018-12-14] MEDS: LASIX PO SCH ×2 (09:24→20:12)
[2018-12-14] MEDS: SOLU-MEDROL IV SCH (09:24)
[2018-12-14] MEDS: PROTONIX IV SCH ×2 (09:25→20:12)
[2018-12-14] MEDS: PERIDEX MT SCH ×2 (09:31→22:43)
--- NOTE | 2018-12-14 10:22 | PROGRESS NOTE ---
DATE: 12/14/2018 SUBJECTIVE: Ms. Bolden continues to have a left-sided chest tube placed by Dr. Mcbride. She has some subcutaneous emphysema that has not worsened since yesterday. It appears that she continues to have a small air leak, and we will keep her left chest tube to suction and in place. She has significant COPD and has been on IV steroids. We will try to decrease those steroids to as little as possible, or stop them so that this air leak can heal. cc: Yanelis Donnelly MD
[2018-12-14] MEDS ORDERED: DILAUDID IV ONE (17:39)
[2018-12-14] MEDS ORDERED: NEURONTIN PO ONE (17:43)
--- NOTE | 2018-12-14 19:01 | PROGRESS NOTE ---
DATE: 12/14/2018 SUBJECTIVE: Her main focal complaints are pain as usual. Pain from her chest tube side and in her back, and pain around her incisional hernia. Every day she is requesting more pain medication. This is not a new event. For the last three days I have seen her she has required more pain medication. OBJECTIVE: Vital Signs: Blood pressure is 101/71, heart rate of 100, respiratory rate 18, temperature 97.9, 97% on 2 L. Cardiovascular: Regular rate and rhythm. Pulmonary: Bilateral breath sounds. Clear to auscultation. Gastrointestinal: Soft, nontender, nondistended. Bowel sounds are positive. LABORATORY DATA: White count 11, hemoglobin and hematocrit 8 and 26, platelets 229,000. PH 7.4, pCO2 52, PaO2 86. Creatinine 1.2. PROBLEM LIST: 1. Hypoxic respiratory failure, aspiration pneumonia. She seems to be doing okay. I think she is on her baseline level of O2, seems well controlled. 2. Left-sided pneumothorax status post thoracostomy tube. She has a small pneumothorax pending, but that is getting a little smaller. She has some subcu air as well, but that will have to resolve over time. At this point, the chest tube is still on suction, but the pneumothorax is overall improved. So hopefully that will continue to improve. 3. COPD. We will continue her treatments. She is on lower dose steroids. 4. Chronic opioid, benzodiazepine use and abuse. She sometimes takes excess medications. I am going to give her a one time extra dose of pain medication, but she specifically wants increasing doses of narcotics and controlled substances. We may need to consider Neurontin, although I think she is already on, I know she may benefit from a little bit of Neurontin. I do not know if she has been on that before. I am suspicious she has been, just to see if we can cut down on her amount of pain requirement. I am just going to give her a little bit of low-dose Neurontin and will see how she does. 5. C difficile, history of colitis. She has completed a course of vancomycin. 6. Hypothyroidism. DISPOSITION: She will need rehab once her chest tube is out. cc: Mayo Maldonado MD
[2018-12-14] MEDS: MBX SOLUTION MT PRN (20:13)
[2018-12-15] MEDS: DILAUDID IV PRN ×6 (00:08→20:12)
[2018-12-15] MEDS: TORADOL IV PRN ×3 (00:11→15:42)
[2018-12-15] MEDS: DUONEB (A & A) INH SCH ×6 (03:22→22:47)
[2018-12-15] MEDS: XANAX PO PRN ×3 (03:57→23:02)
[2018-12-15] MEDS: ZOSYN 3.375 GM in NS 50 ML IV SCH ×5 (03:59→22:45)
[2018-12-15] MEDS: NORCO-10 PO PRN ×4 (05:11→23:02)
[2018-12-15] MEDS: SYNTHROID PO SCH ×2 (05:11→06:00)
[2018-12-15] MEDS: LOVENOX SUBQ SCH (05:12)
[2018-12-15 05:37] LABS: ALLEN TEST YES; BLOOD TYPE ARTERIAL; HCO3-(ACT) 31.1 mmoll (20.0-26.0); METHB 1.4 % (0.0-1.5); O2(CT) 9.8 mL/dL (15.0-23.0); O2HB 93.7 % (95.0-99.0); PO2(98.6) 78 mmHg (60-100); SAMPLE BLOOD; SAO2 98.5 % (95.0-100.0); THB 7.3 g/dL (11.5-17.4); pH(98.6) 7.39 (7.35-7.45)
[2018-12-15 05:41] LABS: MODALITY CANNULA; PCO2(98.6) 56 mmHg (35-45)
[2018-12-15 06:28] LABS: CALCIUM 8.5 mg/dL (8.8-10.2); CREATININE 1.1 mg/dL (0.5-0.9); POTASSIUM 4.2 mmol/L (3.5-5.1)
[2018-12-15 06:29] LABS: BASO# 0.01 X1000 (0.0-0.2); BASO% 0.1 % (0.0-0.8); EOS# 0.24 X1000 (0.0-0.7); EOS% 2.3 % (0.0-10.0); HEMATOCRIT 25.4 % (37.0-47.0); HEMOGLOBIN 7.7 g/dL (12.0-16.0); LYMPH# 0.79 X1000 (1.2-3.4); LYMPH% 7.6 % (20.5-51.1); MCH 30.4 PG (27-31); MCHC 30.3 g/dL (33-37); MCV 100.4 FL (81-99); MONO# 0.18 X1000 (0.11-0.59); MONO% 1.7 % (1.7-9.3); MPV 12.2 FL (7.4-10.4); NEUT# 9.11 X1000 (1.4-6.5); NEUT% 87.3 % (42.2-75.2); PLT 213 X1000 (130-400); RBC 2.53 XMIL (4.2-5.4); RDW 17.8 % (11.5-14.5); WBC 10.43 X1000 (4.8-10.8)
--- NOTE | 2018-12-15 06:57 | Diag Imaging Result Doc PS360 ---
EXAM: CHEST-1 VIEW 12/15/2018 HISTORY: SOB TECHNIQUE: AP portable at 0605 COMMENT: There is a left-sided chest tube. There is extensive soft tissue emphysema on both sides of the chest but primarily in the left lateral chest. This includes the supraclavicular regions bilaterally. There is atelectasis or pneumonia in the left lower lobe which appears to be slightly worse than on 12/14/2018. There is a tiny residual left apical pneumothorax. There may be pulmonary edema. IMPRESSION: Extensive soft tissue emphysema. Worsened atelectasis or pneumonia left lower lobe. Improved and nearly resolved left pneumothorax. Electronically signed by Dick Coronado 12/15/2018 6:55 AM
[2018-12-15] MEDS ORDERED: SODIUM CHLORIDE 0.9% 10 ML ONE (07:47)
[2018-12-15] MEDS: PROTONIX IV SCH ×2 (08:07→20:11)
[2018-12-15] MEDS: LASIX PO SCH ×2 (08:07→20:11)
[2018-12-15] MEDS: MUCINEX PO SCH ×2 (08:07→20:11)
[2018-12-15] MEDS: PERIDEX MT SCH ×2 (08:08→20:10)
[2018-12-15] MEDS: SOLU-MEDROL IV SCH (08:08)
[2018-12-15] MEDS: NEURONTIN PO SCH ×3 (08:09→20:11)
--- NOTE | 2018-12-15 08:11 | PROGRESS NOTE ---
DATE: 12/15/2018 SUBJECTIVE: Ms. Bolden continues to have a left-sided chest tube. She has some subcutaneous air and the sentinel hole of the chest tube is right there at her ribs, but position of this chest tube has not changed. She has no residual pneumothorax with her left chest tube on suction. She continues to have a small air leak. Her white blood cell count is now normal. Her hematocrit is 25%. She is on Solu-Medrol. PLAN: I would try to decrease IV Solu-Medrol and stop it if possible. I think this would help with her air leak resolving. We will leave her chest tube. Dr. Mcbride returns tomorrow. cc: Yanelis Donnelly MD
--- NOTE | 2018-12-15 19:37 | PROGRESS NOTE ---
DATE: 12/15/2018 SUBJECTIVE: Patient resting comfortably in bed. She continues to complain of chest pain. OBJECTIVE: Vital Signs: As follows: Temperature is 98.4, pulse 97, respirations 22, blood pressure is 109/60, oxygen saturation is 95%. HEENT: She is atraumatic, normocephalic. Cardiovascular: S1, S2. She has distant heart sounds. Respiratory: She does have evidence of subcutaneous emphysema noted. Abdomen: Soft, nontender. No masses felt. Extremities: No evidence of edema. Central Nervous System: No obvious focal deficit noted. LABS: As follows: WBC is 10.43, hematocrit is 25.4, with a platelet count of 213,000. AB.39/56/78/98.5%. potassium 4.2, chloride 97, bicarb 33, BUN is 28, creatinine is 1.1. X-ray of the chest shows evidence of extensive soft tissue emphysema, as well as worsened atelectasis or pneumonia left lower lobe. This has improved. Nearly resolved left pneumothorax. ASSESSMENT AND PLAN: 1. Acute respiratory failure. Today's chest x-ray shows evidence of worsened atelectasis or pneumonia left lower lobe. Maintain patient on oxygenation, keep sats above 90. 2. Left-sided pneumothorax status post thoracostomy tube. Today's chest x-ray shows nearly resolved left pneumothorax. The patient is being followed by the Surgical Team. 3. COPD. Nebulized bronchodilators as needed. Continue steroids. 4. Pneumonia. Continue antibiotics. The patient is currently on Zosyn. 5. Hypothyroidism. Continue levothyroxine. 6. DVT prophylaxis. Lovenox. 7 GI prophylaxis. PPI. cc: John Frances MD [facility]
[2018-12-15] MEDS: XANAX PO SCH (20:11)
--- NOTE | 2018-12-15 22:02 | PULMONOLOGY PROGRESS NOTE ---
DATE: 12/15/2018 SUBJECTIVE: The patient continues to report pain. Her breathing has improved. OBJECTIVE: BP 125/65, heart rate 100, respiratory rate 16, oxygen saturation 94% on nasal cannula.HEENT: Pupils are equal and reactive. Oropharynx is clear. Neck: Is supple. Chest: Reveals significant subcutaneous emphysema both laterally in the left and right chest. Good breath sounds bilaterally. No air leak noted in the chest tube collection container. Abdomen: Soft. Extremities: Without edema. LABORATORIES: White blood count 10.43, hemoglobin 7.7, platelet count 213,000. Arterial blood gas, pH 7.39, pCO2 56, PO2 of 78. Chemistry. Sodium 139, potassium 4.2, chloride 97, bicarbonate 31, BUN 28, creatinine 1.1. Chest x-ray reveals extensive soft tissue emphysema with some atelectasis at the left base. No significant pneumothorax identified. IMPRESSION: 58-year-old with severe chronic obstructive pulmonary disease, left lower lobe pneumonia, spontaneous pneumothorax, ongoing tobacco use, chronic pain requirements, acute hypoxemic respiratory failure, with bronchial cultures only revealing Fartun albicans. RECOMMENDATIONS: 1. Continue chest tube management per Dr. Lazaro Donnelly and Dr. Sudhakar Mcbride. 2. Agree with discontinuing steroids. This may be leading to the yeast in her airways and may make it more difficult to seal her air leak. 3. Smoking cessation was recommended. 4. Continue current antibiotic regimen. cc: Jossue Alvarado MD
[2018-12-16] MEDS: DILAUDID IV PRN ×4 (00:05→17:15)
[2018-12-16] MEDS: TORADOL IV PRN ×3 (00:09→15:59)
[2018-12-16] MEDS ORDERED: DILAUDID IV ONE ×2 (01:48→16:41)
[2018-12-16] MEDS: DUONEB (A & A) INH SCH ×6 (03:36→22:55)
[2018-12-16] MEDS: ZOSYN 3.375 GM in NS 50 ML IV SCH ×4 (04:08→22:33)
[2018-12-16] MEDS: XANAX PO PRN ×2 (04:16→15:59)
[2018-12-16 05:26] LABS: ALLEN TEST YES; BE 12.2 mmoll (-3.0-3.0); BLOOD TYPE ARTERIAL; HCO3-(ACT) 34.4 mmoll (20.0-26.0); METHB 1.4 % (0.0-1.5); O2(CT) 11.3 mL/dL (15.0-23.0); PO2(98.6) 68 mmHg (60-100); SAMPLE BLOOD; SAO2 95.2 % (95.0-100.0); THB 8.7 g/dL (11.5-17.4); pH(98.6) 7.42 (7.35-7.45)
[2018-12-16 05:28] LABS: MODALITY CANNULA
[2018-12-16 05:29] LABS: PCO2(98.6) 59 mmHg (35-45)
[2018-12-16] MEDS: SYNTHROID PO SCH ×2 (05:30→06:29)
[2018-12-16] MEDS: NORCO-10 PO PRN ×3 (05:30→17:15)
[2018-12-16] MEDS: LOVENOX SUBQ SCH (05:30)
--- NOTE | 2018-12-16 06:01 | Diag Imaging Result Doc PS360 ---
EXAM: CHEST-PORTABLE HISTORY: increased pain TECHNIQUE: Portable chest single view COMPARISON: 12/15/2018 FINDINGS: There is a large amount of subcutaneous air in the lower neck and chest. No change in the position of the left-sided chest tube. No cardiomegaly. No pleural effusions identified. No change in the left basilar infiltrates. IMPRESSION: No interval improvement. Electronically signed by Dwayne Newsome 12/16/2018 5:59 AM
[2018-12-16] MEDS: PROTONIX IV SCH ×2 (08:27→22:33)
[2018-12-16] MEDS: MUCINEX PO SCH ×2 (08:28→22:33)
[2018-12-16] MEDS: LASIX PO SCH ×2 (08:28→22:33)
[2018-12-16] MEDS: PERIDEX MT SCH ×2 (08:28→22:34)
[2018-12-16] MEDS: NEURONTIN PO SCH ×2 (08:28→22:33)
--- NOTE | 2018-12-16 10:00 | GENERAL SURGERY PROGRESS NOTE ---
DATE: 12/16/2018 SUBJECTIVE: The patient complains of pain across her chest, begging for more pain medicines. OBJECTIVE: Vital Signs: She is afebrile. Vital signs are stable. General: She is awake and alert, oriented x3. Upon entering the room, she was calm, sitting up, eating her breakfast. As soon as I entered the room, she started crying and complaining of pain. CV: Regular rate and rhythm. Respiratory: Bilateral breath sounds. She does have noted subcutaneous emphysema across her upper chest. No air leak was observed in the chest tube. IMAGING: Chest x-ray shows extensive subcutaneous emphysema, but no pneumothorax. ASSESSMENT/PLAN: A 58-year-old female with left-sided spontaneous pneumothorax, chronic obstructive pulmonary disease, chronic pain syndrome, pneumonia. Dr. Alvarado has started reducing her steroids which I agree with. Hopefully, this will stop the air leak. I did not observe an air leak in her tube today. I have clamped her chest tube. We will repeat an x-ray this afternoon to see if there is any residual pneumothorax. If so, then we will definitely make plans for thoracoscopy this week. If she does not have any residual pneumothorax, I will remove the chest tube and continue observation for a day or two. cc: Sudhakar Mcbride MD
[2018-12-16] MEDS ORDERED: TORADOL IV ONE (10:02)
--- NOTE | 2018-12-16 13:15 | Diag Imaging Result Doc PS360 ---
EXAM: CHEST-PORTABLE HISTORY: clamped chest tube; pneumothorax TECHNIQUE: Chest single view COMPARISON: 2:03 PM FINDINGS: Prominent subcutaneous air remains. No pneumothorax identified. No change in the position of the left-sided chest tube. No cardiomegaly. IMPRESSION: Subcutaneous air, but no definite pneumothorax. Electronically signed by Dwayne Newsome 12/16/2018 1:12 PM
--- NOTE | 2018-12-16 18:25 | PROGRESS NOTE ---
DATE: 12/16/2018 When I walked in the room she was talking on the phone and in no pain. As soon as she got off the phone she started crying that her pain was uncontrollable and nothing would help her and I was ignoring her and I was making fun of her for crying, which there was nothing done of the sort. OBJECTIVE: Blood pressure 117/72, heart rate 114, respiratory rate 20, temperature 98.4, degrees 95% on 2 L.Cardiovascular: Regular rate and rhythm. Pulmonary: Bilateral breath sounds, diminished at the bases. GI: Soft, nontender, nondistended. Bowel sounds are positive. LABORATORY DATA: White count I do not have any CBC or basic today but her pH 7.42, pCO2 59, PaO2 68. PROBLEM LIST: 1. Acute respiratory failure due to pneumonia, atelectasis, pneumothorax. Continue to wean O2 as tolerated. 2. Left-sided pneumothorax. Her chest x-ray shows resolution now. Hopefully she will get the chest tube pulled. I discussed with her once the chest tube is pulled the pain should greatly improve. She really despite that still wants us to go up on her pain medication which I explained once the source of pain is removed she should require less pain medication but I do not think she is really understanding of that and is continuing to ask for more pain medication and more anxiety medication and she has had specific issues with that in the past. She admits to overtaking her medications and forgetting that she has taken medicines and then taking them again but really does not want to confront the problem of possible abuse of the narcotic medications in any case. 3. Chronic obstructive pulmonary disease. She is on breathing treatments. She is on very low- dose steroids. Will continue to follow. DISPOSITION: Pending her clinical status she may need rehab once we have gotten rid of the chest tube but she can start getting up and around. cc: Mayo Maldonado MD
[2018-12-16] MEDS: DIFLUCAN 100 MG/NS 100 MG/50 ML IVPB IV SCH (21:00)
[2018-12-16] MEDS: MBX SOLUTION MT PRN (22:39)
[2018-12-17] MEDS: XANAX PO SCH (00:04)
[2018-12-17] MEDS: NORCO-10 PO PRN ×4 (03:26→22:22)
[2018-12-17] MEDS: DUONEB (A & A) INH SCH ×5 (03:26→19:57)
[2018-12-17] MEDS: DILAUDID IV PRN ×2 (03:27→07:24)
--- NOTE | 2018-12-17 03:27 | PULMONOLOGY PROGRESS NOTE ---
DATE: 12/16/2018 SUBJECTIVE: The patient is complaining of oral pain and thrush. The patient also reports pain in her chest wall. She also reports significant anxiety. She has been requesting anxiety medication and pain medications. Chest tube is currently clamped by Dr. Mcbride. OBJECTIVE: Vital Signs: BP 117/72, heart rate 99, respiratory rate 16, oxygen saturation 95% on 2 L per nasal cannula. HEENT: Pupils are equal and reactive. Oropharynx is clear. Neck: Supple. Chest: Reveals subcutaneous air predominantly over the left thorax. Chest tube is in position. No air leak identified. Cardiac: S1, S2. Abdomen: Soft without hepatosplenomegaly. Extremities: Without edema. LABORATORY DATA: Chest x-ray at 1:48 a.m. this morning and at 1:00 p.m. this evening reveals subcutaneous air but no significant pneumothorax. Microbiology from her bronchial wash reveals Fartun albicans. IMPRESSION: The patient is a 58-year-old with spontaneous pneumothorax, pneumonia, acute hypoxemic respiratory failure,candidiasis, chronic anxiety disorder, resolving pneumonia, subcutaneous emphysema. Progress notes have been reviewed, Dr. Maldonado's note is noted and he indicates the patient said that he was making fun of her for crying. She mentioned the same thing this evening when I came in, that I was making fun of her for crying when she was not actually crying when I came in the room. I suspect that this is a ploy for sympathy. She has significant drug-seeking behavior and is fairly manipulative. PLAN: 1. Chest tube management per Dr. Mcbride. Hopefully chest tube can be removed today. 2. The patient's steroids have been discontinued. Her airway will be followed for bronchospasm. 3. Initiate Diflucan for yeast identified in bronchial wash along with oral candidiasis. 4. Continue antibiotics. 5. Smoking cessation has been encouraged. cc: Jossue Alvarado MD [facility]
[2018-12-17] MEDS: TORADOL IV PRN ×4 (04:49→22:22)
[2018-12-17] MEDS: SYNTHROID PO SCH ×2 (04:49→06:12)
[2018-12-17] MEDS: LOVENOX SUBQ SCH ×2 (04:49→05:22)
[2018-12-17] MEDS: ZOSYN 3.375 GM in NS 50 ML IV SCH ×4 (04:49→21:36)
[2018-12-17] MEDS: XANAX PO PRN (04:50)
[2018-12-17 06:36] LABS: BASO# 0.02 X1000 (0.0-0.2); BASO% 0.2 % (0.0-0.8); EOS# 0.42 X1000 (0.0-0.7); EOS% 4.2 % (0.0-10.0); HEMATOCRIT 25.6 % (37.0-47.0); HEMOGLOBIN 7.9 g/dL (12.0-16.0); IMM GRAN# 0.04 X1000 (0.0-0.04); IMM GRAN% 0.4 % (0.0-0.5); LYMPH# 0.82 X1000 (1.2-3.4); LYMPH% 8.3 % (20.5-51.1); MCH 30.6 PG (27-31); MCHC 30.9 g/dL (33-37); MCV 99.2 FL (81-99); MONO# 0.17 X1000 (0.11-0.59); MONO% 1.7 % (1.7-9.3); MPV 12.3 FL (7.4-10.4); NEUT# 8.46 X1000 (1.4-6.5); NEUT% 85.2 % (42.2-75.2); PLT 185 X1000 (130-400); RBC 2.58 XMIL (4.2-5.4); RDW 17.4 % (11.5-14.5); WBC 9.93 X1000 (4.8-10.8)
[2018-12-17] MEDS ORDERED: SODIUM CHLORIDE 0.9% 10 ML ONE (06:38)
[2018-12-17 06:54] LABS: AGAP 10; BUN 34 mg/dL (8-22); CALCIUM 8.5 mg/dL (8.8-10.2); CHLORIDE 95 mmol/L (98-107); COSMO 283; CREATININE 0.9 mg/dL (0.5-0.9); ESTIMATED GFR > 60; GLUCOSE 94 mg/dL (70-104); POTASSIUM 4.1 mmol/L (3.5-5.1); SODIUM 138 mmol/L (136-145); TCO2 33 mmol/L (25-35)
--- NOTE | 2018-12-17 07:26 | Diag Imaging Result Doc PS360 ---
EXAM: CHEST-1 VIEW INDICATION: SOB TECHNIQUE: One view COMPARISON: 12/16/2018 FINDINGS: Left-sided chest tube is in stable position. There is extensive subcutaneous emphysema overlying the chest amaya that is unchanged. There is no appreciable residual pneumothorax. No new consolidation is identified. Cardiac silhouette is stable. IMPRESSION: Stable chest. Electronically signed by Reuben Quiles 12/17/2018 7:24 AM
[2018-12-17 07:59] LABS: EOS 2 % (1-10); LYMPHS 10 % (21-51); SEGS 88 % (42-75)
[2018-12-17] MEDS: LASIX PO SCH ×2 (09:39→21:35)
[2018-12-17] MEDS: MUCINEX PO SCH ×2 (09:39→21:35)
[2018-12-17] MEDS: PERIDEX MT SCH ×2 (09:39→21:35)
[2018-12-17] MEDS: PROTONIX IV SCH ×2 (09:39→21:35)
[2018-12-17] MEDS: NEURONTIN PO SCH ×2 (09:41→21:35)
--- NOTE | 2018-12-17 11:29 | Diag Imaging Result Doc PS360 ---
EXAM: CHEST-PORTABLE INDICATION: removal of chest tube TECHNIQUE: One view COMPARISON: 12/17/2018 FINDINGS: There has been interval removal of the left thoracostomy tube. There is stable extensive subcutaneous emphysema. No discrete residual pneumothorax can be identified by plain radiograph. The chest is stable, otherwise. IMPRESSION: Interval removal of the left chest tube. Stable chest, otherwise. Electronically signed by Reuben Quiles 12/17/2018 11:27 AM
--- NOTE | 2018-12-17 11:36 | GENERAL SURGERY PROGRESS NOTE ---
DATE: 12/17/2018 SUBJECTIVE: The patient has had no new complaints overnight. OBJECTIVE: She is afebrile. Vital signs are stable. General: She is awake, alert, oriented x3 in no acute distress. CV: Regular rate and rhythm. Respiratory: Bilateral equal breath sounds. Chest tube without air leak. IMAGING: Chest x-ray with the tube clamped revealed no new pneumothorax. She has stable subcutaneous emphysema. ASSESSMENT AND PLAN: A 58-year-old female with pneumothorax on the left, now resolved. She has tolerated clamping of the chest tube overnight. I will remove it today at the bedside, which has already been performed by me after examining her. She tolerated this well. We will repeat a chest x-ray this afternoon cc: Sudhakar Mcbride MD
--- NOTE | 2018-12-17 13:13 | Diag Imaging Result Doc PS360 ---
EXAM: COCCYX/SACRUM INDICATION: fall TECHNIQUE: 3 views COMPARISON: 11/06/2013 FINDINGS: There has been interval fusion at L5-S1. There is no evidence of fracture involving the sacrum or coccyx. There are approximately stable degenerative changes at the SI joints. IMPRESSION: No evidence of acute osseous abnormality involving the sacrum or coccyx. Electronically signed by Reuben Quiles 12/17/2018 1:11 PM
--- NOTE | 2018-12-17 13:16 | Diag Imaging Result Doc PS360 ---
EXAM: LUMBAR SPINE 2-VIEWS INDICATION: fall TECHNIQUE: 2 views COMPARISON: 08/02/2014 FINDINGS: There has been prior fusion of L5-S1 during the interval. Metallic hardware is in place. Incidentally, one of the screws in the S1 vertebra is fractured. Miniscule endplate osteophytes at L2-3 are unchanged. The intervertebral disc spaces side from the fused level are maintained. The vertebral body heights are maintained. Otherwise, there is no discrete fracture, subluxation, or significant intrinsic osseous lesion. There is mild aortic atherosclerotic disease. Surrounding soft tissues are essentially unremarkable, otherwise. IMPRESSION: Interval fusion of L5-S1. No evidence of acute osseous abnormality. Electronically signed by Reuben Quiles 12/17/2018 1:14 PM
--- NOTE | 2018-12-17 15:43 | PROGRESS NOTE ---
DATE: 12/17/2018 INTERVAL HISTORY: The patient attempted to get out of bed without assistance this morning and fell. No injuries evident. X-ray with no fracture or other acute process. Chest x-ray removed this morning and follow up x-ray with no evidence of continued pneumothorax. REVIEW OF SYSTEMS: A 12 point review of systems negative, except as per interval history. LABS: WBC 9.9, hemoglobin 7.9, hematocrit 25.6, platelets 185. Basic metabolic panel unremarkable. Lumbar, sacrum and coccyx x-rays with no acute process. Chest x-ray with interval removal of left chest tubes and otherwise stable. VITALS: T-max 99.0, pulse 101, respirations 18, blood pressure 116/79, O2 saturation 96% on 2 L by nasal cannula. PHYSICAL EXAMINATION: General: No acute distress. Vitals: As above. HEENT: Normocephalic, atraumatic. Moist mucous membranes. Neck: No cervical adenopathy. Cardiovascular: Regular rate and rhythm. No murmurs, rubs, or gallops. Pulmonary: Minimally diminished at the bases, but otherwise clear to auscultation bilaterally. Abdomen: Soft, nontender, nondistended. Bowel sounds positive. Extremities: Peripheral pulses intact. No clubbing, cyanosis, or edema. Neurologic: Cranial nerves 2-12 grossly intact. No focal motor or sensory deficits. Psychiatric: Normal mood. Odd affect. Awake, alert, oriented x3. Skin: Continued crepitus along the bilateral upper chest and left chest wall. No new rashes or lesions identified. ASSESSMENT AND PLAN: 1. Acute hypoxic respiratory failure and chronic hypercapnic respiratory failure, secondary to pneumonia and pneumothorax. Oxygen requirements continue to improve slowly. CO2 retention essentially baseline at this point. Left pneumothorax essentially resolved. Chest tube out. Remains on antibiotics with Zosyn currently, but may be able to be transitioned to oral and discharge to rehabilitation in the next 1 to 2 days. 2. Oral thrush, already improved. Continue fluconazole. 3. Anemia, likely anemia of chronic disease. Hemoglobin and hematocrit stable. 4. Chronic obstructive pulmonary disease. No wheezing when patient breathes normally. Continue monitoring. 5. Chronic pain and anxiety. The patient's chest tube now removed. Pneumothorax resolved. Will resume patient's home doses of [place] and Ativan. 6. Hypertension. Reasonable control on current regimen. 7. Hypothyroidism. Continue Synthroid. 8. Gastroesophageal reflux disease. Continue proton pump inhibitor. 9. Deep vein thrombosis prophylaxis. Continue Lovenox. 10. Disposition: Hopefully to rehabilitation in the next 48 hours if repeat chest x-ray continues to show no signs of pneumothorax and Infectious Disease believes she can be transitioned to oral antibiotics.
[2018-12-17] MEDS: ATIVAN PO SCH (22:12)
[2018-12-17] MEDS: DIFLUCAN 100 MG/NS 100 MG/50 ML IVPB IV SCH (22:58)
[2018-12-18] MEDS: DUONEB (A & A) INH SCH ×7 (00:10→23:32)
[2018-12-18] MEDS: NORCO-10 PO PRN ×5 (04:29→20:58)
[2018-12-18] MEDS: TORADOL IV PRN ×4 (04:30→20:20)
[2018-12-18] MEDS: ZOSYN 3.375 GM in NS 50 ML IV SCH ×4 (04:31→15:00)
[2018-12-18] MEDS: MBX SOLUTION MT PRN ×2 (04:56→08:23)
[2018-12-18] MEDS: LOVENOX SUBQ SCH (05:38)
[2018-12-18] MEDS: SYNTHROID PO SCH ×2 (05:39→08:25)
--- NOTE | 2018-12-18 07:04 | Diag Imaging Result Doc PS360 ---
EXAM: CHEST-1 VIEW 12/18/2018 HISTORY: SOB TECHNIQUE: AP portable at 0633 COMMENT: There is bilateral soft tissue emphysema. There has been some improvement since the previous study of 12/17/2018. There is no appreciable pneumothorax. There continues to be some increased interstitial opacity bilaterally particularly in the lateral left lung and lower lobe. There has been improvement compared to the previous examination. IMPRESSION: Improved interstitial pulmonary edema and soft tissue emphysema. Electronically signed by Dick Coronado 12/18/2018 7:02 AM
[2018-12-18] MEDS: PROTONIX IV SCH (08:24)
[2018-12-18] MEDS: MUCINEX PO SCH ×2 (08:24→20:20)
[2018-12-18] MEDS: NEURONTIN PO SCH ×2 (08:24→20:20)
[2018-12-18] MEDS: LASIX PO SCH (08:24)
[2018-12-18] MEDS: TESSALON PO PRN (08:24)
[2018-12-18] MEDS: PERIDEX MT SCH ×2 (08:24→20:21)
--- NOTE | 2018-12-18 10:50 | GENERAL SURGERY PROGRESS NOTE ---
DATE: 12/18/2018 SUBJECTIVE: I went by the patient's room today. She was sleeping comfortably. I did not awaken her. I did review her x-ray which shows no pneumothorax and some improvement in the subcutaneous emphysema. OBJECTIVE: Only from the vital sign standpoint, she remains afebrile. Pulse is stable. Blood pressure is stable. Oxygen saturations in the upper 90s on nasal cannula. In summary, I think her pneumothorax has resolved. She will slowly resolve her subcutaneous emphysema. She should continue treatment for her COPD and pneumonia per Dr. Alvarado and, hopefully, will avoid any further invasive procedures. We will be available as needed. cc: Sudhakar Mcbride MD
[2018-12-18] MEDS ORDERED: ATIVAN PO ONE (16:04)
--- NOTE | 2018-12-18 16:51 | PROGRESS NOTE ---
DATE: 12/18/2018 Overnight no acute events. Her vitals appear fluctuating between 60 to 100 per minute. She was normotensive on most occasions saturating 95% on 2 to 3 L nasal cannula. SUBJECTIVE: The patient states that she is feeling very anxious at the moment and appears tremulous. She denies chest pain except chest wall pain bilaterally predominantly on the right side. I discussed with her about the findings of pneumothorax, pneumonia, need for antibiotics and antifungals. I answered all of her questions. OBJECTIVE: Currently, vital signs temperature of 98.1, pulse 67 per minute, and blood pressure 101/69. She is saturating 95% on 2 to 3 L nasal cannula. General: Appears very anxious and tremulous. Oral cavity with no oral thrush. Moist. Air entry bilaterally equal. No wheeze or rhonchi. There is subcutaneous emphysema which is palpable, and she does have crackles in bilateral lungs because of that. Cardiovascular: S1, S2 normal. Tachycardic. No rub or rhonchi. Abdomen: Soft, nontender. Extremities: No lower extremity edema. DIAGNOSTIC AND LABORATORY: Input and output: She has a Anaya catheter in place. She is negative 2.4 L today. Microbiology bronchial washing growing Fartun albicans. Imaging: Chest x-ray performed today morning which suggests improved interstitial pulmonary edema and soft tissue emphysema. ASSESSMENT AND PLAN: 1. Acute hypoxic respiratory failure and chronic hypercarbic respiratory failure because of pneumonia and pneumothorax with history of COPD. The patient is on home oxygen. Currently, there appears to be at baseline oxygen requirement of 2 to 3 L. Continue oxygen to maintain saturation more than 94%. Follow up ABG as needed. 2. Left pneumothorax status post chest tube, which was removed on . The patient appears to have tolerated removal well. Repeat chest x-ray does not suggest reaccumulation. 3. Pneumonia. The patient has been on intravenous Zosyn since 11/25. Though the sputum culture was negative, I will change her antibiotics to Levaquin as previously she did not have anaphylactic reaction to that. Continue fluconazole for bronchial washings growing Fartun. My plan is to give her 10 days of fluconazole and 5 days of levofloxacin. 4. Oral thrush, now resolved. 5. Anemia of chronic disease. Currently, hemoglobin and hematocrit is stable. 6. Chronic obstructive pulmonary disease on home oxygen, currently not in acute exacerbation. Continue albuterol and ipratropium nebulization. She is off steroids now. 7. Chronic pain and anxiety. Continue patient's home [place] and Ativan. 8. Essential hypertension, currently not hypertensive. We will monitor blood pressure. 9. History of hypothyroidism and gastroesophageal reflux disease. Continue patient on levothyroxine and pantoprazole. 10. Other: Continue gabapentin and [place] for chronic pain according to previous documentation. However, the patient did have pain medication seeking behavior. 11. Disposition: The patient is a candidate for rehab. If she continues to do better, my plan is to discharge her to rehab in the next 24 to 48 hours. Plan of care was discussed with her. All of her questions have been answered. cc: Justin Galvin MD MTDD
[2018-12-18] MEDS: ATIVAN PO SCH ×2 (20:20→21:00)
[2018-12-18] MEDS: DIFLUCAN 100 MG/NS 100 MG/50 ML IVPB IV SCH (20:21)
[2018-12-18] MEDS: LEVAQUIN PO SCH (20:29)
[2018-12-18] MEDS: PROTONIX PO SCH (20:32)
[2018-12-18] MEDS ORDERED: DOXYCYCLINE PO SCH (21:00)
--- NOTE | 2018-12-19 01:31 | PULMONOLOGY PROGRESS NOTE ---
DATE: 12/18/2018 SUBJECTIVE: The patient is awake, alert, and conversant. She did fall attempting to get out of bed yesterday. She does request why she cannot have Dilaudid at least once a day. Her chest tube has been removed. OBJECTIVE: Vital Signs: The patient has been afebrile for the last 24 hours. Blood pressure 105/69, heart rate 67, respiratory rate 20, oxygen saturation 95%. HEENT: Pupils are equal and reactive. Oropharynx is clear. Neck: Supple. Chest reveals scattered rhonchi bilaterally. Cardiac: S1-S2. Abdomen: Soft, without hepatosplenomegaly. Extremities: Reveal no edema. LABORATORIES: Chest x-ray reveals some decrease in subcutaneous edema. Microbiology reveals no new data. IMPRESSION: A 58-year-old with spontaneous pneumothorax, acute hypoxemic respiratory failure, pneumonia, candidiasis, chronic pain syndrome, chronic anxiety syndrome, subcutaneous emphysema. The patient continues to improve. RECOMMENDATIONS: 1. Agree with transition to oral antibiotics. 2. Physical therapy. 3. Agree with transfer to a rehab facility. I believe she is also ready for transfer. cc: Jossue Alvarado MD [facility]
[2018-12-19] MEDS: NORCO-10 PO PRN ×4 (03:05→20:51)
[2018-12-19] MEDS: TORADOL IV PRN ×4 (03:05→21:11)
[2018-12-19] MEDS: DUONEB (A & A) INH SCH ×5 (03:56→19:33)
[2018-12-19] MEDS: SYNTHROID PO SCH (06:20)
[2018-12-19] MEDS: LOVENOX SUBQ SCH (06:20)
[2018-12-19 07:24] LABS: BASO# 0.02 X1000 (0.0-0.2); BASO% 0.2 % (0.0-0.8); EOS# 0.31 X1000 (0.0-0.7); EOS% 3.1 % (0.0-10.0); HEMATOCRIT 23.2 % (37.0-47.0); HEMOGLOBIN 6.9 g/dL (12.0-16.0); IMM GRAN# 0.06 X1000 (0.0-0.04); IMM GRAN% 0.6 % (0.0-0.5); MCH 29.7 PG (27-31); MCHC 29.7 g/dL (33-37); MONO# 0.27 X1000 (0.11-0.59); MONO% 2.7 % (1.7-9.3); MPV 12.1 FL (7.4-10.4); NEUT# 8.25 X1000 (1.4-6.5); NEUT% 82.4 % (42.2-75.2); PLT 174 X1000 (130-400); RBC 2.32 XMIL (4.2-5.4); RDW 17.4 % (11.5-14.5); WBC 10.01 X1000 (4.8-10.8)
--- NOTE | 2018-12-19 07:24 | Diag Imaging Result Doc PS360 ---
EXAM: CHEST-1 VIEW INDICATION: SOB TECHNIQUE: One view COMPARISON: 12/18/2018 FINDINGS: Soft tissue emphysema is approximately stable. There is no appreciable pneumothorax. Interstitial thickening likely representing edema is unchanged. No new consolidation is identified. Cardiac silhouette is stable. IMPRESSION: Essentially stable chest. Electronically signed by Reuben Quiles 12/19/2018 7:22 AM
[2018-12-19 08:06] LABS: AGAP 10; BUN 24 mg/dL (8-22); CALCIUM 8.1 mg/dL (8.8-10.2); CHLORIDE 99 mmol/L (98-107); COSMO 287; CREATININE 0.7 mg/dL (0.5-0.9); ESTIMATED GFR > 60; GLUCOSE 103 mg/dL (70-104); POTASSIUM 3.4 mmol/L (3.5-5.1); SODIUM 142 mmol/L (136-145); TCO2 33 mmol/L (25-35)
[2018-12-19] MEDS: MUCINEX PO SCH ×2 (09:04→20:52)
[2018-12-19] MEDS: PERIDEX MT SCH ×2 (09:04→20:53)
[2018-12-19] MEDS: LEVAQUIN PO SCH (09:05)
[2018-12-19] MEDS: LASIX PO SCH (09:05)
[2018-12-19] MEDS: PROTONIX PO SCH ×2 (09:05→20:51)
[2018-12-19] MEDS: NEURONTIN PO SCH ×2 (09:06→20:52)
[2018-12-19] MEDS: TESSALON PO PRN (09:11)
[2018-12-19] MEDS: ATIVAN PO SCH (20:51)
[2018-12-19] MEDS: MBX SOLUTION MT PRN (21:11)
[2018-12-19] MEDS: DIFLUCAN 100 MG/NS 100 MG/50 ML IVPB IV SCH (21:18)
--- NOTE | 2018-12-19 22:01 | PROGRESS NOTE ---
DATE: 12/19/2018 SUBJECTIVE: She is denying any new complaints. She is complaining of persistent chest pain because of subcutaneous emphysema. She wanted me to order further antianxiety medication including lorazepam. I discussed with her that low anxiety is an important issue to take care of considering benefit of anxiety reliving properties of benzodiazepine versus risk of respiratory depression given her current condition. I would refrain from using too much of benzodiazepine. I also discussed with her about controlling her pain with lidocaine patch. OBJECTIVE: Vital signs within normal limits. Physical examination is unchanged. DIAGNOSTIC AND LABORATORY DATA: Her hemoglobin has dropped to 6.9. I will follow up with CBC tomorrow. ASSESSMENT AND PLAN: 1. Acute hypoxic respiratory failure and chronic hypercarbic respiratory failure because of pneumonia and pneumothorax with history of COPD. The patient is on home oxygen. Currently, there appears to be at baseline oxygen requirement of 2 to 3 L. Continue oxygen to maintain saturation more than 94%. Follow up ABG as needed. 2. Left pneumothorax status post chest tube, which was removed on . The patient appears to have tolerated removal well. Repeat chest x-ray does not suggest reaccumulation. 3. Pneumonia. The patient has been on intravenous Zosyn since 11/25. Though the sputum culture was negative.. Continue Levaquin now. Continue fluconazole for bronchial washings growing Fartun. My plan is to give her 10 days of fluconazole and 5 days of levofloxacin. 4. Oral thrush, now resolved. 5. Anemia of chronic disease. Follow up CBC to assess need for transfusion. 6. Chronic obstructive pulmonary disease on home oxygen, currently not in acute exacerbation. Continue albuterol and ipratropium nebulization. She is off steroids now. 7. Chronic pain and anxiety. Continue patient's home [place], gabapentin and Ativan. Avoid any additional narcotics. 8. Essential hypertension, currently not hypertensive. We will monitor blood pressure. 9. History of hypothyroidism and gastroesophageal reflux disease. Continue patient on levothyroxine and pantoprazole. 11. Disposition: The patient is a candidate for rehab. If she continues to do better, my plan is to discharge her to rehab in the next 24 to 48 hours. Plan of care was discussed with her. All of her questions have been answered. cc: MD NERY Billy
[2018-12-19] MEDS: LIDODERM TOP SCH (22:37)
--- NOTE | 2018-12-20 00:37 | PULMONOLOGY PROGRESS NOTE ---
DATE: 12/19/2018 SUBJECTIVE: The patient continues to report she is not getting of anxiety medicine. She also reports she has cough productive of thick sputum. OBJECTIVE: Vital Signs: Blood pressure 107/71, heart rate 103, respiratory rate 16, oxygen saturation 99% on nasal cannula. HEENT: Pupils are equal and reactive. Oropharynx is clear. Neck: Supple. Chest: Reveals some continued residual subcutaneous emphysema noted bilaterally. Cardiac: S1-S2. Abdomen: Soft, without hepatosplenomegaly. Extremities: Without edema. LABORATORIES: Chest x-ray reveals stable subcutaneous edema, without significant pneumothorax. White blood count 10.01, hemoglobin 6.9, platelet count 174,000. IMPRESSION: A 58-year-old with a spontaneous pneumothorax, pneumonia, subcutaneous emphysema, candidiasis, chronic pain syndrome, chronic anxiety syndrome, and hypoxemic respiratory failure. She does report some difficulty with cough and clearing thick secretions. RECOMMENDATION: 1. Agree with oral antibiotics. 2. Initiate Mucomyst in an attempt to help clear secretions. She may refuse this medicine if she cannot tolerate the sulfur smell. 3. Continue physical therapy. 4. Agree with physical rehab stay day due to overall weakness. 5. Anticipate transfusion if her hemoglobin remains less than 7. cc: Jossue Alvarado MD
[2018-12-20] MEDS: DUONEB (A & A) INH SCH ×7 (00:49→23:37)
[2018-12-20] MEDS: NORCO-10 PO PRN ×4 (02:57→22:00)
[2018-12-20] MEDS: TORADOL IV PRN ×4 (02:57→22:04)
[2018-12-20] MEDS: LOVENOX SUBQ SCH (06:33)
[2018-12-20] MEDS: SYNTHROID PO SCH (06:33)
[2018-12-20] MEDS: MBX SOLUTION MT PRN (06:35)
[2018-12-20 07:54] LABS: BASO# 0.02 X1000 (0.0-0.2); BASO% 0.3 % (0.0-0.8); EOS% 3.8 % (0.0-10.0); HEMATOCRIT 22.4 % (37.0-47.0); HEMOGLOBIN 6.6 g/dL (12.0-16.0); IMM GRAN# 0.05 X1000 (0.0-0.04); IMM GRAN% 0.6 % (0.0-0.5); LYMPH# 1.34 X1000 (1.2-3.4); LYMPH% 16.9 % (20.5-51.1); MCH 29.3 PG (27-31); MCHC 29.5 g/dL (33-37); MCV 99.6 FL (81-99); MONO# 0.31 X1000 (0.11-0.59); MONO% 3.9 % (1.7-9.3); NEUT# 5.89 X1000 (1.4-6.5); NEUT% 74.5 % (42.2-75.2); PLT 179 X1000 (130-400); RBC 2.25 XMIL (4.2-5.4); RDW 17.4 % (11.5-14.5); WBC 7.91 X1000 (4.8-10.8)
[2018-12-20 08:00] LABS: AGAP 8; ALB/GLOB RATIO 0.9; ALBUMIN 2.5 g/dL (3.5-5.0); ALKALINE PHOSPHATASE 105 U/L (32-104); BUN 19 mg/dL (8-22); CALCIUM 8.3 mg/dL (8.8-10.2); CHLORIDE 99 mmol/L (98-107); COSMO 285; CREATININE 0.8 mg/dL (0.5-0.9); ESTIMATED GFR > 60; GLUCOSE 118 mg/dL (70-104); GOT 24 U/L (10-30); GPT 23 U/L (10-36); MAGNESIUM 1.8 mg/dL (1.5-2.7); PHOSPHORUS 2.5 mg/dL (2.7-4.5); POTASSIUM 3.6 mmol/L (3.5-5.1); SODIUM 141 mmol/L (136-145); TCO2 34 mmol/L (25-35); TOTAL BILIRUBIN 0.15 mg/dL (0.20-1.00); TOTAL PROTEIN 5.4 g/dL (6.3-8.3)
[2018-12-20] MEDS: MUCOMYST 20% INH SCH ×2 (08:16→19:17)
--- NOTE | 2018-12-20 08:17 | Diag Imaging Result Doc PS360 ---
EXAM: CHEST-1 VIEW HISTORY: SOB TECHNIQUE: Portable chest single view COMPARISON: 12/19/2018 FINDINGS: The lungs are well expanded. There are subcutaneous air bilaterally similar to the prior study. No pneumothorax identified. No cardiomegaly. No pleural effusions. Right apical density remains. IMPRESSION: Stable chest. Electronically signed by Dwayne Newsome 12/20/2018 8:15 AM
[2018-12-20] MEDS: PERIDEX MT SCH ×2 (09:25→22:00)
[2018-12-20] MEDS: LEVAQUIN PO SCH (09:25)
[2018-12-20] MEDS: LASIX PO SCH (09:25)
[2018-12-20] MEDS: MUCINEX PO SCH ×2 (09:25→22:00)
[2018-12-20] MEDS: LIDODERM TOP SCH (09:25)
[2018-12-20] MEDS: PROTONIX PO SCH ×2 (09:25→22:00)
[2018-12-20] MEDS: NEURONTIN PO SCH ×2 (09:25→22:00)
[2018-12-20] MEDS ORDERED: LASIX IV SCH (18:15)
--- NOTE | 2018-12-20 20:54 | PROGRESS NOTE ---
DATE: 12/20/2018 Overnight no acute events except her blood count has dropped. She denies noticing any blood in the stool. She denies any bloody vomiting. We discussed about her anemia during hospitalization and medical illness contributing to it and I answered all of her questions and discussed with her that she would eventually need blood transfusion. Currently the patient is complaining of some chest wall pain. She also feels a little short of breath, which is her baseline. She uses oxygen, which is her baseline. VITALS: Temperature 98.1 degrees, pulse 95, blood pressure 118/78, saturating 100% on 2 L nasal cannula. PHYSICAL EXAMINATION: General: Does not appear in any acute distress. Oral cavity moist. Lungs: Air entry bilaterally equal with inspiratory crackles bilateral infrascapular region and also prolonged expiration with end-expiratory wheezes. Cardiovascular: S1, S2 normal. Tachycardic. No murmur or gallop. Abdomen: Is soft, nontender except tenderness around the periumbilical region where she had some abdominal hernia. No lower extremity edema. Neurological: Alert and oriented x 3. LABS: Today is significant for a hemoglobin of 6.6/ Normal kidney function. No new microbiological data. IMAGING: Chest imaging x-ray suggests essentially unchanged chest x-ray, except right upper lobe opacity. ASSESSMENT AND PLAN: 1. Acute hypoxic respiratory failure and chronic hypercarbic respiratory failure because of pneumonia and pneumothorax with history of COPD. Patient is on home oxygen, currently appears to be baseline in terms of her oxygen requirement. Continue oxygen to maintain saturation more than 94%. Follow-up ABG as needed. 2. Chronic hypoxic respiratory failure with history of COPD. The current examination suggests acute exacerbation. Continue albuterol and ipratropium nebulizers and start pushing a short course of oral steroids. Continue oxygenation to maintain saturation more than 94%. 3. Left pneumothorax status post chest tube, which was removed on 12/17/2018, and tolerated removal well. No recurrent pneumothorax. 4. Right upper lobe pneumonia. Patient has been on intravenous Zosyn since 11/25/2018, which was later on changed to p.o. levofloxacin which I will continue. Continue p.o. fluconazole for bronchial culture growing yeast. Plan is to continue levofloxacin for 5 days and fluconazole for 10 days. Oral thrush is now resolved, 5. Anemia of chronic disease with drop in hemoglobin. Gave patient 1 unit of packed red blood cells with Lasix. 6. Chronic pain and anxiety. Continue home [place], gabapentin, and Ativan. Hold additional narcotics. 7. Hypertension. Currently normotensive. Follow-up with EKG for tachycardia. 8. Continue home levothyroxine for hypothyroidism and pantoprazole for GERD. 9. Disposition: The patient remains inside the hospital. Social work rehab consult has been placed. The patient continues to feel better and her breathing status has improved. The plan is to discharge her to rehab early next week. Plan of care was discussed. All of her questions have been answered. cc: Justin Galvni MD
[2018-12-20] MEDS: DIFLUCAN 100 MG/NS 100 MG/50 ML IVPB IV SCH (21:57)
[2018-12-20] MEDS: ATIVAN PO SCH (22:04)
[2018-12-20] MEDS: PREDNISONE PO SCH (22:05)
--- NOTE | 2018-12-20 22:12 | EKG Report ---
Test Performed on : 12/20/2018 9:41:40 PM Test Reason : Tachycardia Blood Pressure : / mmHG Vent. Rate : 095 BPM Atrial Rate : 095 BPM P-R Int : 140 ms QRS Dur : 080 ms QT Int : 368 ms P-R-T Axes : -21 049 051 degrees QTc Int : 462 ms Normal sinus rhythm. Anterior infarct , age undetermined Abnormal ECG When compared with ECG of 26-NOV-2018 23:57, Anterior infarct is now present Non-specific change in ST segment in Inferior leads Unconfirmed Result
[2018-12-20] MEDS ORDERED: NS 250 ML IV SCH (22:30)
[2018-12-21] MEDS: DUONEB (A & A) INH SCH ×6 (03:42→23:21)
[2018-12-21] MEDS: TORADOL IV PRN (03:49)
[2018-12-21] MEDS: NORCO-10 PO PRN ×4 (03:49→21:45)
[2018-12-21] MEDS: LOVENOX SUBQ SCH (06:08)
[2018-12-21] MEDS: SYNTHROID PO SCH (06:08)
[2018-12-21 07:35] LABS: BASO# 0.02 X1000 (0.0-0.2); BASO% 0.3 % (0.0-0.8); HEMATOCRIT 27.6 % (37.0-47.0); HEMOGLOBIN 8.4 g/dL (12.0-16.0); IMM GRAN# 0.05 X1000 (0.0-0.04); IMM GRAN% 0.7 % (0.0-0.5); LYMPH# 0.65 X1000 (1.2-3.4); LYMPH% 9.7 % (20.5-51.1); MCH 28.6 PG (27-31); MCHC 30.4 g/dL (33-37); MCV 93.9 FL (81-99); MONO# 0.08 X1000 (0.11-0.59); MONO% 1.2 % (1.7-9.3); MPV 11.4 FL (7.4-10.4); NEUT# 5.92 X1000 (1.4-6.5); NEUT% 88.1 % (42.2-75.2); PLT 177 X1000 (130-400); RBC 2.94 XMIL (4.2-5.4); WBC 6.72 X1000 (4.8-10.8)
[2018-12-21] MEDS: MUCOMYST 20% INH SCH ×2 (07:45→19:30)
--- NOTE | 2018-12-21 08:05 | Diag Imaging Result Doc PS360 ---
EXAM: CHEST-1 VIEW - 12/21/2018 HISTORY: SOB TECHNIQUE: Portable chest COMPARISON: 12/20/2018 FINDINGS: Heart size is within normal limits. There is been apparent mild decrease in ill-defined bilateral infiltrates. There is no substantial pleural effusion or pneumothorax identified. There is bilateral subcutaneous emphysema again seen. IMPRESSION: Mild decrease in ill-defined infiltrates. Electronically signed by Haile Cerrato 12/21/2018 8:03 AM
[2018-12-21] MEDS: PREDNISONE PO SCH (08:37)
[2018-12-21] MEDS: PERIDEX MT SCH ×2 (08:37→21:49)
[2018-12-21] MEDS: PROTONIX PO SCH ×2 (08:37→21:46)
[2018-12-21] MEDS: LIDODERM TOP SCH (08:37)
[2018-12-21] MEDS: LEVAQUIN PO SCH (08:37)
[2018-12-21] MEDS: MUCINEX PO SCH ×2 (08:37→21:46)
[2018-12-21] MEDS: NEURONTIN PO SCH ×2 (08:38→21:46)
[2018-12-21] MEDS: LASIX PO SCH (08:38)
[2018-12-21] MEDS ORDERED: MOTRIN PO ONE (12:21)
[2018-12-21] MEDS: ATIVAN PO SCH ×2 (17:03→21:58)
--- NOTE | 2018-12-21 18:14 | PROGRESS NOTE ---
DATE: 12/21/2018 INTERVAL HISTORY: No acute events overnight. The patient did not report any acute events. She was able to walk in the hallway without any trouble. However, she stated after she came back, she was very anxious and was getting short of breath and was having chest pain. On review of EKG, EKG has normal sinus rhythm. The patient wanted me to give something for her anxiety. I discussed with her about my concern with benzodiazepines again, and that I would order something for her. I also discussed with her about her clinical condition OBJECTIVE: Vital signs: Temperature 98.2 degrees, pulse 94, blood pressure 128/71, and saturating 96% on room air. General: She does not appear in any acute distress. Oral cavity is moist. Lungs: Air entry bilaterally equal. Bilateral prolonged expiration with only mild wheezing, which is better than yesterday. Infrascapular inspiratory crackles bilaterally. Cardiovascular: S1, S2 normal. Non tachycardic. No murmur, rub, or gallop. There is subcutaneous emphysema which is palpable over anterior chest. Abdomen: Soft. Mildly tender around periumbilical region where she has abdominal wall hernia. Extremities: No lower extremity edema. Neurologic: Alert and oriented x3. LABORATORY: Labs today suggests improvement in hemoglobin to 8.4 post transfusion. ASSESSMENT AND PLAN: 1. Acute hypoxic respiratory failure and chronic hypercarbic respiratory failure because of pneumonia, pneumothorax with history of COPD. Continue patient on home oxygen to maintain saturation more than 94%. 2. Acute COPD exacerbation. Continue albuterol and ipratropium nebulization and p.o. steroids. 3. Left pneumothorax, status post chest tube removed on 12/17. No recurrence of pneumothorax. 4. Right upper lobe pneumonia. The patient's intravenous Zosyn was changed to p.o. levofloxacin. Continue it for 5 to 7 days with fluconazole for Fartun albicans pneumonia which grew out bronchial culture. Oral thrush is resolved. 5. Anemia of chronic disease with drop in hemoglobin, status post 1 packed red blood cells with appropriate rise. 6. Chronic pain and anxiety. Continue home [place] gabapentin, and Ativan. I will not add additional antianxiety or narcotic medications. 7. Essential hypertension, currently normotensive. EKG is normal sinus rhythm. Continue home levothyroxine for hypothyroidism and pantoprazole for GERD. 8. Disposition. Social Work Rehab consult has been placed. I will call patient's son and discuss about plan of care. All of her questions have been answered. cc: Justin Galvin MD
--- NOTE | 2018-12-21 20:35 | PULMONOLOGY PROGRESS NOTE ---
DATE: 12/21/2018 SUBJECTIVE: Patient continues to ask for pain medications and benzodiazepines. I continued to inform her that I am not in charge of these 2 medications. She has a slightly wet cough. She has no increased work of breathing. OBJECTIVE: She has been afebrile for the last 24 hours. Blood pressure 128/71 , heart rate 94, respiratory rate 16, oxygen saturation 96% on 3 L per nasal cannula. HEENT: Pupils are equal, reactive. Oropharynx is clear. Neck: Is supple. Chest: Reveals some decreased breath sounds bilaterally. Subcu air is appreciated bilaterally but appears to be decreased. Cardiac: S1, S2. Abdomen: Soft and without hepatosplenomegaly. Extremities: Without edema. LABORATORIES: White blood count 6.72, hemoglobin 8.4. Chest x-ray reveals slight decrease in bibasilar infiltrates. Subcutaneous air appears to be slightly diminished as well. No pneumothorax identified. IMPRESSION: 58-year-old with chronic obstructive pulmonary disease, spontaneous pneumothorax, pneumonia, subcutaneous emphysema, candidiasis, chronic pain syndrome, chronic anxiety syndrome, with chronic hypoxemic respiratory failure. She continues to slowly improve. RECOMMENDATIONS: 1. Continue bronchial hygiene. 2. Continue current oral antibiotics. 3. Recommend steroid taper. 4. Continue oxygen for hypoxemic respiratory failure. 5. Anticipate transfer to a rehab facility early to mid next week. cc: Jossue Alvarado MD MTDD
[2018-12-21] MEDS ORDERED: CELEBREX PO SCH (21:00)
[2018-12-21] MEDS: MOTRIN PO SCH (21:45)
[2018-12-21] MEDS: MELATONIN PO SCH (21:45)
[2018-12-21] MEDS: DIFLUCAN 100 MG/NS 100 MG/50 ML IVPB IV SCH (21:49)
[2018-12-22] MEDS: NORCO-10 PO PRN ×4 (03:00→21:12)
[2018-12-22] MEDS: DUONEB (A & A) INH SCH ×5 (03:25→19:30)
[2018-12-22] MEDS: MOTRIN PO SCH ×3 (05:50→21:20)
[2018-12-22] MEDS: LOVENOX SUBQ SCH (05:50)
[2018-12-22] MEDS: SYNTHROID PO SCH ×2 (05:50→06:47)
--- NOTE | 2018-12-22 06:51 | Diag Imaging Result Doc PS360 ---
EXAM: CHEST-1 VIEW HISTORY: SOB TECHNIQUE: Portable chest single view COMPARISON: 12/21/2018 FINDINGS: Subcutaneous air remains in each axilla. This is similar to the most recent exam. No pneumothorax identified. No cardiomegaly. The lungs are well expanded. There are faint infiltrates overlying the mid and lower lungs similar to the prior study. IMPRESSION: Stable chest. Electronically signed by Dwayne Newsome 12/22/2018 6:49 AM
[2018-12-22] MEDS: MUCOMYST 20% INH SCH ×2 (07:41→19:45)
[2018-12-22] MEDS: PREDNISONE PO SCH (09:00)
[2018-12-22] MEDS: LEVAQUIN PO SCH (09:01)
[2018-12-22] MEDS: MUCINEX PO SCH ×2 (09:01→21:19)
[2018-12-22] MEDS: PROTONIX PO SCH ×2 (09:01→21:21)
[2018-12-22] MEDS: LASIX PO SCH (09:01)
[2018-12-22] MEDS: NEURONTIN PO SCH ×3 (09:01→21:22)
[2018-12-22] MEDS: LIDODERM TOP SCH (09:05)
[2018-12-22] MEDS: PERIDEX MT SCH ×2 (09:09→21:20)
[2018-12-22] MEDS ORDERED: ATIVAN PO ONE (09:34)
[2018-12-22] MEDS ORDERED: LYRICA PO ONE (17:26)
--- NOTE | 2018-12-22 18:45 | PROGRESS NOTE ---
DATE: 12/22/2018 SUBJECTIVE: The patient was able to work with physical therapy, was able to come out of bed. However, she was getting short of breath. The patient is very anxious, appears jittery and she wants me to address her pain and anxiety, and wants one more lorazepam. I answered all of her questions. She does not want to be on SNRI or SSRI for her anxiety. OBJECTIVE: Temperature of 97.9 degrees, pulse 97 per minute, blood pressure 130/80, saturating 99% on physical examination. She appears very anxious and jittery. However, not in acute distress. Oral cavity is moist. Air entry bilaterally equal. No wheezes. No rhonchi. No mild bilateral infrascapular crackles. S1, S2 normal. Non tachycardic. No murmur, rub, or gallop. Subcutaneous emphysema palpable oriented to chest. Abdomen is soft, mildly tender in periumbilical region. Extremities no lower extremity edema. Neurological alert and oriented x3. LABORATORY: No CBC or BMP today. ASSESSMENT AND PLAN: 1. Acute hypoxic respiratory failure and chronic hypercarbic respiratory failure because of pneumonia, pneumothorax, history of chronic obstructive pulmonary disease. Continue home oxygen to maintain saturation more than 94%. 2. Acute COPD exacerbation. Continue albuterol and ipratropium nebulization and p.o. steroids. Start tapering. 3. Left pneumothorax status post chest tube removed on 12/17. No recurrence of pneumothorax. 4. Right upper lobe pneumonia with evidence of Fartun in bronchial washings. The patient is status post intravenous Zosyn to p.o. levofloxacin which I will complete a 7 day course. Continue fluconazole for about 10 to 14 days. Oral thrush is resolved. 5. Anemia of chronic disease with drop in hemoglobin, status post 1 packed red blood cells. Continue to monitor CBC. 6. Chronic pain and anxiety. Continue home [place], gabapentin, and Ativan. I will not add any additional antianxiety or narcotic medications. 7. Essential hypertension, currently normotensive. EKG in sinus rhythm. Continue home levothyroxine for hypothyroidism and pantoprazole for GERD. 8. Disposition: The patient's breathing has improved. If she continues to do better, my plan is to remove Anaya catheter tomorrow and potentially discharge her to rehab. Plan of care were discussed with her. All of her questions were answered. Yesterday, I discussed the plan of care with the patient's son and his questions were answered. cc: Justin Galvin MD
[2018-12-22] MEDS: DIFLUCAN 100 MG/NS 100 MG/50 ML IVPB IV SCH (21:14)
[2018-12-22] MEDS: ATIVAN PO SCH (21:20)
[2018-12-22] MEDS: MELATONIN PO SCH (21:20)
[2018-12-23] MEDS: DUONEB (A & A) INH SCH ×6 (00:35→15:30)
--- NOTE | 2018-12-23 03:05 | PULMONOLOGY PROGRESS NOTE ---
DATE: 12/22/2018 SUBJECTIVE: The patient is awake, alert, and conversant. She reports that she did stand briefly today. She continues to request pain medicines. She did not ask for an anxiety medicine today but has discussed this with Dr. Galvin. OBJECTIVE: Vital Signs: The patient has been afebrile for the last 24 hours. Blood pressure 131/83, heart rate 97, respiratory rate 20, oxygen saturation 99% on 2 L per nasal cannula. HEENT: Pupils are equal and reactive. Oropharynx is clear. Neck: Supple. Chest: Reveals good air entry bilaterally. She has some subcutaneous air present but it appears to be diminished. Cardiac Examination: S1 and S2. Abdomen: Soft. Extremities: Without edema. Laboratories: Chest x-ray reveals some decreased subcutaneous air bilaterally over the last several days. No evidence of pneumothorax. Minimal residual infiltrates present. IMPRESSION: A 58-year-old with chronic obstructive pulmonary disease, spontaneous pneumothorax, pneumonia - status post treatment, candidiasis identified on bronchoscopies - status post treatment, subcutaneous emphysema, chronic pain syndrome, chronic anxiety syndrome, with acute on chronic hypoxemic respiratory failure. She clinically and radiographically continues to improve. RECOMMENDATIONS: 1. Recommend to discontinue Anaya catheter to prevent urinary tract infection. 2. Complete antibiotic course. 3. Agree with rapid steroid taper. 4. Recommend evaluation for rehabilitation. I believe she can be discharged to rehab from a pulmonary standpoint. cc: Jossue Alvarado MD
[2018-12-23] MEDS: NORCO-10 PO PRN ×3 (03:13→16:29)
[2018-12-23] MEDS: SYNTHROID PO SCH (06:17)
[2018-12-23] MEDS: LOVENOX SUBQ SCH (06:17)
[2018-12-23] MEDS: MUCOMYST 20% INH SCH (07:25)
[2018-12-23 07:29] LABS: AGAP 9; BASO# 0.02 X1000 (0.0-0.2); BASO% 0.3 % (0.0-0.8); BUN 22 mg/dL (8-22); CALCIUM 8.8 mg/dL (8.8-10.2); CHLORIDE 99 mmol/L (98-107); COSMO 284; CREATININE 0.8 mg/dL (0.5-0.9); EOS# 0.12 X1000 (0.0-0.7); EOS% 2.1 % (0.0-10.0); ESTIMATED GFR > 60; GLUCOSE 88 mg/dL (70-104); HEMATOCRIT 27.8 % (37.0-47.0); HEMOGLOBIN 8.6 g/dL (12.0-16.0); IMM GRAN# 0.05 X1000 (0.0-0.04); IMM GRAN% 0.9 % (0.0-0.5); LYMPH# 1.57 X1000 (1.2-3.4); LYMPH% 27.2 % (20.5-51.1); MCH 29.3 PG (27-31); MCHC 30.9 g/dL (33-37); MCV 94.6 FL (81-99); MONO# 0.58 X1000 (0.11-0.59); MONO% 10.1 % (1.7-9.3); MPV 11.6 FL (7.4-10.4); NEUT# 3.43 X1000 (1.4-6.5); NEUT% 59.4 % (42.2-75.2); PLT 193 X1000 (130-400); POTASSIUM 3.4 mmol/L (3.5-5.1); RBC 2.94 XMIL (4.2-5.4); RDW 17.6 % (11.5-14.5); SODIUM 141 mmol/L (136-145); TCO2 33 mmol/L (25-35); WBC 5.77 X1000 (4.8-10.8)
[2018-12-23] MEDS: LEVAQUIN PO SCH (08:43)
[2018-12-23] MEDS: MOTRIN PO SCH (08:43)
[2018-12-23] MEDS: MUCINEX PO SCH (08:43)
[2018-12-23] MEDS: LASIX PO SCH (08:43)
[2018-12-23] MEDS: PROTONIX PO SCH (08:43)
[2018-12-23] MEDS: PERIDEX MT SCH (08:43)
[2018-12-23] MEDS: NEURONTIN PO SCH (08:45)
[2018-12-23] MEDS ORDERED: PREDNISONE PO SCH (09:00)
[2018-12-23] MEDS: LIDODERM TOP SCH ×2 (09:19→09:43)
[2018-12-23] MEDS ORDERED: KLOR-CON PO ONE ×2 (11:28→16:21)
--- NOTE | 2018-12-23 12:54 | PROGRESS NOTE ---
DATE: 12/23/2018 INTERVAL HISTORY: No interval event. Patient was able to work with physical therapy without any new complaints. She wants me to give her additional doses of [place] and lorazepam, which I refused. CURRENT VITAL SIGNS: Temperature of 98 degrees, pulse of 79, blood pressure 140 /79, saturating 100% on room air. PHYSICAL EXAMINATION: Lungs: Air entry bilaterally equal. No wheeze, rhonchi , crackles. Heart: S1, S2 normal. No murmur or gallop. Abdomen: Soft, nontender. Extremities: No lower extremity edema. LABS: Suggestive of stable hemoglobin, hematocrit, and platelet count. Hypokalemia which is being repleted. ASSESSMENT AND PLAN: 1. Cardiac arrest due to opioid overdose, resuscitated requiring intensive care unit initially. 2. Acute hypoxic respiratory failure, chronic hypercarbic respiratory failure, acute chronic obstructive pulmonary disease exacerbation. 3. Left pneumothorax, status post chest tube. 4. Right upper lobe pneumonia. 5. Anemia of chronic disease. 6. Chronic pain and anxiety. 7. Essential hypertension. PLAN: The patient will be discharged on antibiotics and antifungals. Her steroids should be tapered over the next 2 weeks for COPD exacerbation. Her [place] and Ativan should be tapered off slowly over the next 4 weeks. The patient was strongly counseled about stopping these medications use, and she is recommended to taper it off over 4 weeks considering her significant withdrawal symptoms. Plan of care was discussed with her. I called her son who is patient 's next of kin surrogate decision maker and informed him that patient had because of her pain medication use and that she must stop its use over next 4 weeks. I updated him about rehab discharge plan and answered all of his questions including her low blood count. TIME SPENT: More than 30 minutes were spent on discharging this patient. I discussed the discharge plan with patient's son who is the next of kin and answered all of his questions. cc: Justin Galvin MD [facility] HOSPITALMeredith
--- NOTE | 2018-12-23 13:56 | DISCHARGE SUMMARY ---
ADMISSION DATE: 11/25/2018 DISCHARGE DATE: 12/23/2018 CONSULTATIONS: 1. Jossue Alvarado MD with Pulmonology. 2. Sudhakar Mcbride MD with General Surgery. PERTINENT PROCEDURES: 1. Head CT: no evidence of acute intracranial pathology. 2. Chest CT: small pericardial effusion and bilateral pleural effusions noted with complete collapse of the left lower lobe. There is some mild mucus plugging in the right lower lobe as well as advanced COPD. 3. Neck and chest CT: A left pneumothorax. This is despite the presence of a small chest tube. Left pleural effusion. Complete atelectasis on the left lower lobe, plus or minus pneumonia. Bilateral mastoiditis and mastoid effusions. 4. Insertion of left-sided chest for left pneumothorax on 12/07/2018. 5. Left chest tube placement and bronchoscopy with washings and culture for continued left pneumothorax. 6. Lumbar spine x-ray: Interval fusion L4 through S1. No evidence of acute osseous abnormality. 7. Sacrum and coccyx x-ray showed no evidence of osseous abnormality involving the sacrum or coccyx. 8. Final chest x-ray showed subcutaneous air that remained in the axilla similar to most recent exam. Pneumothorax was not identified. There were faint infiltrates overlying the mid and lower lungs similar to prior study. Stable chest. DISCHARGE DIAGNOSES: 1. Cardiopulmonary arrest. She was resuscitated by [facility] in the field. 1. Acute hypoxemic respiratory failure on chronic hypercarbic respiratory failure because of pneumonia, left-sided pneumothorax and history of chronic obstructive pulmonary disease. The patient initially came into the emergency room after cardiopulmonary arrest. She has since been extubated, status post two chest tubes, as well as a bronchoscopy. Will be discharged on nasal cannula to [facility]. 2. Acute chronic obstructive pulmonary disease exacerbation. The patient will continue with the bronchodilators, p.o. steroid taper. 3. Left pneumothorax status post chest tube removal. No recurrence of her pneumothorax. She does have some residual subcutaneous emphysema under her axilla. Continues to resolve. 4. Right upper lobe pneumonia with no evidence of Fartun in bronchial washings. She is status post IV Zosyn converted to p.o. levofloxacin for which she will need to complete a 7 day course. 5. Anemia of chronic disease with drop in hemoglobin status post 1 unit of packed red blood cells. 6. Chronic pain and anxiety syndrome. She will continue [place], gabapentin, and Ativan. Throughout her admission she has requested increases in her dosage as well as extra medications. It was explained to her she did come in cardiopulmonary arrest , believed to be secondary to accidental overdose. No suicidal ideations. She has a history of in the past over-medicating. Medications have been reduced and would like for her to wean off in 4 weeks. 7. Essential hypertension, currently normotensive. 8. Hypothyroidism. Continue Synthroid. 9. Oral thrush, resolved. 11. Hypokalemia, resolved. 12. Acute hepatitis at time of admission, likely from hypoxic insult, improved. 13. Polysubstance abuse and overuse. 14. Known coronary artery disease. No chest pain. 15. Chronic tobacco abuse. The patient has been educated on smoking cessation as well as the means to quit. The patient is now being discharged to [facility]. HOSPITAL COURSE: Briefly, Ms. Bolden is a 58-year-old female with a past medical history of COPD, ongoing tobacco use, history of chronic pain syndrome known to overuse her medications in the past who was reportedly found by her mother. When EMS arrived, the patient was in full cardiac arrest. They did resuscitate her in the field. She was transported to the hospital, placed on full ventilatory and vasopressor support for hemodynamic shock as well as initiated on broad-spectrum antibiotics for pneumonia. Ms. Bolden was intubated for several days in the ICU. Unfortunately, she developed a complete collapse of her left lung, possibly from rupture of a bleb secondary to her COPD. She did receive a chest tube/small catheter with Dr. Sudhakar Mcbride. Unfortunately, this did not resolve the complete left pneumothorax. She received a second chest tube. She did have some subcutaneous emphysema. She continued on IV antibiotics for her pneumonia as well as bronchodilators. She was able to be extubated and weaned down to nasal cannula. She was able to get both her chest tubes removed. She has been educated on over use of her medications with her [place] and antianxiety medication. Throughout her hospitalization, she was requesting in asking for extra pain and antianxiety medicine. She will be discharged on antibiotics and antifungals. They will continue to taper her steroids as well as taper her [place] and Ativan slowly over the next 4 weeks. Again, she was strongly counseled about stopping these medications and slowly tapering to avoid significant withdrawal symptoms. She has been working with physical therapy. Will continue at [facility]. VITAL SIGNS: At time of discharge, temperature was 98 degrees, heart rate 79, respirations 18, blood pressure 143/79, O2 is 100% on room air. DISCHARGE DIET: Regular. DISCHARGE MEDICATIONS: 1. Vitamin D2 50,000 units p.o. 7 days. 2. Folic acid 1 mg p.o. daily. 3. Ativan 0.5 mg p.o. at bedtime p.r.n. The patient will need to taper use and stop it as tolerated over the next 4 weeks. 4. Melatonin 3 mg p.o. at bedtime. 5. Mucinex 600 mg p.o. q.12 h. 6. Tylenol 650 mg p.o. q.6 h. p.r.n. 7. DuoNeb 3 mL inhaled RT q.4 h. 8. Tessalon Perles 100 mg p.o. t.i.d. p.r.n. 9. MBX solution 15 mL 4 times a day p.r.n. 10. Fluconazole 100 mg p.o. daily for a total of 10 days. 11. Neurontin 200 mg p.o. b.i.d. 12. [place] 10 one each p.o. q.6 h. p.r.n. for pain 7/10. For pain less than 7/10 , the patient is to take acetaminophen. 13. Icar C 1 each p.o. b.i.d. 14. Levaquin 750 mg daily for 3 days. 15. Synthroid 100 mcg p.o. daily. 16. Lidoderm patch 1 each topical daily. 17. Protonix 40 mg p.o. b.i.d. 18. Prednisone 10 mg p.o. daily for a slow taper. FOLLOW UP: Ms. Bolden is being discharged to [facility]. She will need to complete her full course of antibiotics. Slowly wean off her [place] and lorazepam over a 4 week period. She will need a repeat EKG, CBC within 3 days of discharge for blood count and heart rhythm. She can return to the ED or call 911 for any worsening of symptoms. Dictated by ALEXSANDRA Altman for Justin Galvin MD cc: MD Jossue Billy MD Jason R. Seale, MD I agree with the components of discharge summary. A separate addendum has been dictated. >30 minutes were spent in discharging this patient. NERY
[2018-12-23 14:44] VITALS: BP 133/79
[2018-12-25] MEDS ORDERED: PREDNISONE PO SCH (09:00)
--- NOTE | 2018-12-25 11:30 | DISCHARGE SUMMARY ---
ADMISSION DATE: 11/25/2018 DISCHARGE DATE: 12/23/2018 ADDENDUM I called the patient's pharmacy and learned that last time the prescription of [place] and Valium were prescribed by a provider named Dr. Luis Mckee. I obtained his fax number and I talked with medical records to fax over my discharge summary and progress note to the provider so that he gets notified about the patient's cardiac arrest because of pain medication overdose. cc: Justin Galvin MD
[2018-12-27] MEDS ORDERED: PREDNISONE PO SCH (09:00)
== END 2018-12-23 17:42 | DRG 907 ==
LOC: ED 20:56 → ICU 11-25 01:06 → SUATTDRO 11-25 01:06 → 3N 11-28 11:01 → ICU 12-07 11:21 → 4N 12-09 15:13 → 3N 12-17 08:06
PROVIDERS: ATTEND Internal Medicine
CPT/HCPCS: 36430; 70450; 70490; 71010; 71020; 71045; 71046; 71250; 72100; 72220; 74000; 74018; 80048; 80053; 80101; 80301; 80307; 80324; 80345; 80346; 80353; 80358; 80361; 80365; 82550; 82805; 82948; 83735; 83992; 84100; 84132; 84443; 84484; 85025; 85027; 85610; 86850; 86900; 86901; 86920; 87015; 87040; 87045; 87046; 87070; 87102; 87116; 87147; 87205; 87206; 87324; 87449; 88112; 89055; 89220; 93005; 93010; 94003; 94640; 94660; 94761; 94762; 94799; 96365; 96366; 96368; 96375; 97161; 97530; 99285; 99291; A9270; C9113; G0431; G0434; G0479; G0480; J0131; J0171; J0330; J0610; J0712; J1170; J1265; J1450; J1650; J1885; J1940; J2270; J2405; J2543; J2920; J2930; J3010; J3480; J7030; J7040; J7042; J7050; J7070; J7506; J7512; P9016; S0030; S0164; XXXXX

== ENCOUNTER 2019-02-18 09:20 | Inpatient (IN) ==
[2019-02-18 10:25] LABS: ALLEN TEST NO; BE -4.6 mmoll (-3.0-3.0); BLOOD TYPE ARTERIAL; HCO3-(ACT) 21.1 mmoll (20.0-26.0); METHB 1.4 % (0.0-1.5); O2(CT) 13.7 mL/dL (15.0-23.0); PO2(98.6) 61 mmHg (60-100); SAMPLE BLOOD; SAO2 90.5 % (95.0-100.0); THB 11.5 g/dL (11.5-17.4)
[2019-02-18 10:29] LABS: MODALITY CANNULA; O2HB 84.8 % (95.0-99.0); PCO2(98.6) 62 mmHg (35-45)
[2019-02-18 10:51] LABS: BASO# 0.03 X1000 (0.0-0.2); BASO% 0.5 % (0.0-0.8); HEMATOCRIT 36.5 % (37.0-47.0); HEMOGLOBIN 11.3 g/dL (12.0-16.0); LYMPH# 1.33 X1000 (1.2-3.4); LYMPH% 21.5 % (20.5-51.1); MCH 29.8 PG (27-31); MCV 96.3 FL (81-99); MONO# 0.41 X1000 (0.11-0.59); MONO% 6.6 % (1.7-9.3); MPV 11.3 FL (7.4-10.4); NEUT# 4.42 X1000 (1.4-6.5); NEUT% 71.4 % (42.2-75.2); PLT 296 X1000 (130-400); RBC 3.79 XMIL (4.2-5.4); RDW 18.6 % (11.5-14.5); WBC 6.19 X1000 (4.8-10.8)
[2019-02-18 11:15] LABS: CK PROFILE 575 U/L (24-173)
[2019-02-18 11:33] LABS: AGAP 14; ALB/GLOB RATIO 1.6; ALBUMIN 4.5 g/dL (3.5-5.0); ALKALINE PHOSPHATASE 80 U/L (32-104); BUN 32 mg/dL (8-22); CALCIUM 7.9 mg/dL (8.8-10.2); CHLORIDE 97 mmol/L (98-107); CK INDEX 3.9 (0.0-2.5); CK-MB 22.22 ng/mL (0.0-5.0); COSMO 274; CREATININE 1.8 mg/dL (0.5-0.9); ESTIMATED GFR 29; GLUCOSE 106 mg/dL (70-104); GOT 36 U/L (10-30); GPT 15 U/L (10-36); SODIUM 137 mmol/L (136-145); TCO2 22 mmol/L (25-35); TOTAL BILIRUBIN < 0.15 mg/dL (0.20-1.00); TOTAL PROTEIN 7.4 g/dL (6.3-8.3)
[2019-02-18] MEDS ORDERED: NS 500 ML IV ONE ×2 (11:35→17:19)
[2019-02-18] MEDS ORDERED: ATIVAN IV ONE ×2 (11:39→12:52)
--- NOTE | 2019-02-18 12:05 | Diag Imaging Result Doc PS360 ---
SHOULDER-LEFT - 02/18/2019 INDICATION: shoulder pain, bruising TECHNIQUE: Two views COMPARISON: None FINDINGS: Bones are intact and normally aligned. Joint spaces and soft tissues are clear. IMPRESSION: Negative exam. Electronically signed by Devin Russo 02/18/2019 12:02 PM
--- NOTE | 2019-02-18 12:07 | Diag Imaging Result Doc PS360 ---
CHEST-PORTABLE - 02/18/2019 INDICATION: sob COMPARISON: 12/22/2018 FINDINGS: There has been resolution of the soft tissue gas. Heart size is top normal. No infiltrates or edema. Stable nodular area of thickening at the right lung apex. IMPRESSION: Right apical nodular density stable from prior exams. Electronically signed by Devin Russo 02/18/2019 12:04 PM
[2019-02-18 12:08] LABS: URINE SOURCE CATH
[2019-02-18 12:13] LABS: BILIRUBIN URINE NEGATIVE (NEGATIVE); BLOOD URINE MODERATE (NEGATIVE); COLOR YELLOW; GLUCOSE URINE NEGATIVE (NEGATIVE); KETONE URINE NEGATIVE (NEGATIVE); LEUKOCYTES URINE NEGATIVE (NEGATIVE); NITRITE URINE NEGATIVE (NEGATIVE); PH URINE 5.5; PROTEIN URINE 30 mg/dL (NEGATIVE); SP GRAVITY URINE 1.028; TURBIDITY URINE CLEAR (CLEAR); UROBILINOGEN URINE NORMAL (NORMAL)
[2019-02-18 12:19] LABS: UR EPITHELIAL CELLS <10 /HPF (<10); URINE BACTERIA NEGATIVE /HPF; URINE RBC <10 /HPF (<10); URINE WBC <10 /HPF (<10)
[2019-02-18] MEDS ORDERED: AMIDATE ONE (12:32)
[2019-02-18] MEDS ORDERED: QUELICIN ONE (12:33)
[2019-02-18 12:36] LABS: URINE CASTS NONE SEEN
--- NOTE | 2019-02-18 12:43 | EKG Report ---
Test Performed on : 02/18/2019 09:51:57 AM Test Reason : CP Blood Pressure : / mmHG Vent. Rate : 087 BPM Atrial Rate : 087 BPM P-R Int : 134 ms QRS Dur : 076 ms QT Int : 384 ms P-R-T Axes : 011 061 029 degrees QTc Int : 462 ms Sinus rhythm. with premature ventricular complexes. or fusion complexes Cannot rule out Anterior infarct (cited on or before 20-DEC-2018) Abnormal ECG When compared with ECG of 20-DEC-2018 21:41, fusion complexes are now present premature ventricular complexes. are now present Unconfirmed Result
[2019-02-18] MEDS ORDERED: FENTANYL 1,000 MICROGM in NS 80 ML IV SCH (12:45)
[2019-02-18] MEDS ORDERED: VERSED 100 MG in NS 80 ML IV SCH (12:45)
[2019-02-18] MEDS ORDERED: QUELICIN IV ONE (12:46)
[2019-02-18] MEDS ORDERED: AMIDATE IV ONE (12:46)
[2019-02-18] MEDS ORDERED: FENTANYL IV ONE (12:52)
--- NOTE | 2019-02-18 13:28 | Diag Imaging Result Doc PS360 ---
EXAM: CHEST-PORTABLE INDICATION: post intubation TECHNIQUE: One view COMPARISON: 02/18/2019 FINDINGS: The newly placed ET tube projects over the trachea and above the thalia at about the T5 level. It is also an NG tube in place that projects below the diaphragm and is assumed to be in the lumen of the stomach in the expected position. Otherwise, the chest is stable as compared to the very recent prior study. IMPRESSION: Interval intubation and placement of NG tube as detailed above. Electronically signed by Reuben Quiles 02/18/2019 1:25 PM
--- NOTE | 2019-02-18 13:40 | Diag Imaging Result Doc PS360 ---
EXAM: CT HEAD W/O CONTRAST INDICATION: falls, AMS TECHNIQUE: This exam was performed using automated exposure control, adjustment of mA or kV according to patient size, and/or use of iterative reconstruction technique. COMPARISON: 11/25/2018 FINDINGS: There is no definite acute infarct given the limited sensitivity of CT versus MRI. There is no discrete intracranial mass, mass effect, or intracranial hemorrhage. There is mild left maxillary sinus mucosal disease. The calvaria is intact. There is suggestion of minimal scalp edema posteriorly on the right. IMPRESSION: Stable brain with no evidence of acute intracranial pathology. Electronically signed by Reuben Quiles 02/18/2019 1:38 PM
[2019-02-18 14:29] LABS: ALLEN TEST NO; BE -2.5 mmoll (-3.0-3.0); BLOOD TYPE ARTERIAL; METHB 1.2 % (0.0-1.5); O2(CT) 13.6 mL/dL (15.0-23.0); O2HB 95.3 % (95.0-99.0); PO2(98.6) 109 mmHg (60-100); SAMPLE BLOOD; SRATE 14 BPM; TVOL 500 mL; pH(98.6) 7.27 (7.35-7.45)
[2019-02-18 14:30] LABS: MODALITY VENTILATOR; PCO2(98.6) 54 mmHg (35-45)
--- NOTE | 2019-02-18 15:08 | HISTORY AND PHYSICAL ---
PRIMARY CARE PROVIDER: None. CHIEF COMPLAINT: Per ED documentation, altered mental status. HISTORY OF PRESENT ILLNESS: Ms. Bolden is a 58-year-old female, well known to our service for multiple admissions for altered mental status, hypoxic and hypercapnic respiratory failure, believed to be medication-induced, as well as noncompliance with home O2. The patient's last admission was on 11/25/2018 secondary to cardiopulmonary arrest. The patient was brought back into the ED today via EMS with complaints of shortness of breath and altered mental status. The patient was found sitting at the kitchen table with her home O2 off. Again, patient is known to be noncompliant with her continuous O2. Upon arrival to the ED, she was confused and making grunting noises. Initially, she was not following commands but was alert. She appears to have had multiple recent falls. She has bruising on the upper and lower extremities as well as on her forehead and to her left shoulder, the left side of the face, the right medial thigh, an abrasions to her left lower leg. She was briefly placed on BiPAP but the patient was not tolerating and she became unresponsive and was intubated by the ED physician. ABG showed a pH of 7.29 and a pCO2 of 62. Chest x-rays are negative. Head CT negative but did suggest minimal scalp edema posteriorly on the right. She will be admitted to the ICU for acute respiratory failure. Consult Pulmonology for ventilator management. No family at the bedside. PAST MEDICAL HISTORY: 1. Recent cardiopulmonary arrest on 11/25/2018. 2. Chronic hypoxemic and hypercarbic respiratory failure. 3. COPD. 4. Recent left pneumothorax status post chest tube removal. 5. Anemia of chronic disease. 6. Chronic pain and anxiety syndrome with history of narcotic abuse. 7. Essential hypertension. 8. Hypothyroidism. 9. Coronary artery disease. 10. Chronic tobacco use. PAST SURGICAL HISTORY: 1. Appendectomy. 2. Cholecystectomy. 3. Hysterectomy. 4. Recent chest tube and removal on the left. SOCIAL HISTORY: Patient lives at home. She does use tobacco. Reports alcohol on a regular basis. Has a history of substance abuse and overuse. ALLERGIES: Codeine causes hives. Sulfa, itching. Levaquin, nausea, vomiting. Tramadol, swelling. HOME MEDICATIONS: Have not been reconciled; however, her discharge back in November, she was discharged on Vitamin D, folic acid, Ativan, melatonin, Mucinex, Tylenol, DuoNeb, Tessalon Perles, MBX solution, Diflucan, Neurontin, University, Icar C, Synthroid, Lidoderm patch, Protonix and prednisone taper. REVIEW OF SYSTEMS: A 14 point review of systems unable to obtain secondary to the patient being intubated and sedated on fentanyl and Versed. PHYSICAL EXAMINATION: VITAL SIGNS: Temperature is 98.8 degrees, heart rate 98, respirations 28, blood pressure 130/76, O2 96% on mechanical ventilation. GENERAL: Ms. Bolden is an ill-appearing 58-year-old female who looks unkempt lying on the stretcher, intubated and sedated. HEENT: Atraumatic, normocephalic. PERRL. NECK: Supple. Trachea midline. CARDIOVASCULAR: S1 and S2 appreciated. No murmurs, gallops, or rubs noted. No JVD. No lower extremity edema. Bilateral pedal pulses are bounding. GASTROINTESTINAL: Soft, appears to be nontender. Hypoactive bowel sounds in 4 quadrants. GENITOURINARY: Anaya draining clear urine. SKIN: Patient has multiple bruises, bruising noted to the left side of the face and forehead, up and down upper and lower extremities and scrapes to her left mendoza. NEUROLOGIC: Unable to obtain secondary to the patient been intubated and sedated. She does not follow any commands. She does not respond to any painful stimuli. DIAGNOSTIC DATA: 1. Head CT. Stable brain with no evidence of acute intracranial pathology. There is suggestion of minimal scalp edema posteriorly on the right. 2. Shoulder x-ray. Negative exam. 3. Chest x-ray shows ET tube and NG tube in good position with a stable chest. LABORATORY DATA: White count 6, hemoglobin and hematocrit 11 and 36, platelet count is 296,000. ABG, pH is 7.20, pCO2 is 62, PO2 61, bicarb 21, base excess -4.6, oxyhemoglobin was 84.8, O2 saturation was 90% on 3 L nasal cannula. Chemistry: Sodium 137, potassium 5.0, chloride 97, carbon dioxide 22, anion gap is 14, BUN 32, creatinine 1.8, blood glucose is 106. AST 36. CK 575, 3.9, CK-MB 22.2, troponin 0.014. Albumin is 4.5. Urinalysis shows moderate blood and 30 protein, negative for any bacteria or nitrites. ASSESSMENT AND PLAN: 1. Acute hypoxic, hypercapnic respiratory failure. She is now status post intubation and sedation. We will move the patient to the ICU to continue ventilatory support. Consult Pulmonology. Serial chest x-rays and ABGs. We will check a sputum culture. 2. Altered mental status believed secondary to metabolic encephalopathy given the patient's history of probable overuse of her pain and anxiety medications. We will continue with aggressive IV hydration. 3. Acute kidney injury. We will continue with aggressive IV hydration, recheck her BUN and creatinine in the a.m., consult Nephrology if warranted. 4. Chronic obstructive pulmonary disease history. The patient is not compliant with her home O2. We will continue with bronchodilators. 5. Anemia of chronic disease. Hemoglobin and hematocrit currently stable. 6. Chronic pain and anxiety syndrome. After the patient is extubated, we will hold any narcotics or benzodiazepines. 7. Polysubstance abuse with overuse with her pain and anxiety medication. The patient was educated to slowly taper off on her last visit. They did not check a urine tox screen. However, she has now been placed on fentanyl and Versed drip. 8. Essential hypertension. Aware. 9. Hypothyroidism. 10. Chronic tobacco use and abuse. The patient will need education on smoking cessation. 11. Known coronary artery disease. We will continue to trend cardiac enzymes. 12. Recent discharge for cardiopulmonary arrest and was discharged to rehab with strict instructions to taper off her benzodiazepines and pain medications as well as being compliant with her home O2. 13. Recent left pneumothorax status post chest tube removal. Aware. 14. Further recommendation to follow physician evaluation, laboratory, and diagnostic data. CRITICAL CARE TIME: 30 minutes. Dictated by ALEXSANDRA Altman for Justin Galvin MD cc: Justin Galvin MD I agree with most components of history, assessment and plan. A separate addendum has been dictated. NERY
[2019-02-18] MEDS ORDERED: ATIVAN IV PRN (15:37)
[2019-02-18] MEDS ORDERED: ZOFRAN IV PRN (15:37)
[2019-02-18] MEDS ORDERED: DUONEB (A & A) INH PRN (15:37)
[2019-02-18] MEDS: DIPRIVAN 1% 1,000 MG/100 ML BOTTLE IV SCH (15:45)
[2019-02-18] MEDS: DUONEB (A & A) INH SCH ×3 (15:45→23:26)
[2019-02-18] MEDS: PROTONIX IV SCH (16:05)
[2019-02-18] MEDS: SODIUM CHLORIDE 0.9% INJ SCH (16:05)
[2019-02-18] MEDS: NS 1,000 ML IV SCH (16:07)
[2019-02-18 16:40] LABS: URINE SOURCE CATH
[2019-02-18 16:43] LABS: BILIRUBIN URINE NEGATIVE (NEGATIVE); BLOOD URINE SMALL (NEGATIVE); COLOR YELLOW; GLUCOSE URINE NEGATIVE (NEGATIVE); KETONE URINE 10 mg/dL (NEGATIVE); LEUKOCYTES URINE NEGATIVE (NEGATIVE); NITRITE URINE NEGATIVE (NEGATIVE); PROTEIN URINE TRACE mg/dL (NEGATIVE); SP GRAVITY URINE 1.026; TURBIDITY URINE CLEAR (CLEAR); UROBILINOGEN URINE NORMAL (NORMAL)
[2019-02-18 16:44] LABS: UR EPITHELIAL CELLS <10 /HPF (<10); URINE BACTERIA NEGATIVE /HPF; URINE RBC <10 /HPF (<10); URINE WBC <10 /HPF (<10)
--- NOTE | 2019-02-18 16:51 | PROVIDER DOCUMENTATION ---
This chart was entered by Ann-Marie Donnelly Scribe, acting as scribe for Marilu Forte CRNP. HPI-General Adult - General Chief Complaint: Altered Mental Status Stated Complaint: sob Time Seen by Provider: 02/18/19 09:38 Source: patient, EMS Allergies/Adverse Reactions: Patient Allergies Allergy/AdvReac Type Severity Reaction Status Date / Time codeine [Codeine] Allergy Mild HIVES Verified 06/19/18 11:22 Sulfa (Sulfonamide Allergy Mild ITCHING Verified 06/19/18 11:22 Antibiotics) [Sulfa(Sulfonamide Antibiotics)] levofloxacin [From Levaquin] Allergy NAUSEA/VOMI Verified 06/19/18 11:22 TING tramadol Allergy SWELLING Verified 07/12/18 13:08 Home Medications: Home Medication List Medication Instructions Recorded Confirmed Last Taken Type Ergocalciferol (Vitamin D2) 1 tab PO Q7D 09/22/17 12/01/18 09/10/18 History [Vitamin D2] Folic Acid 1 mg PO DAILY 06/19/18 12/01/18 06/18/18 History Iron Carbonyl/Ascorbic Acid 1 ea PO BID #60 tab 07/03/18 12/01/18 Unknown Rx [Icar-C] Acetaminophen [Tylenol] 650 mg PO Q6H PRN PRN tablet 09/12/18 12/01/18 Unknown Rx Levothyroxine [Synthroid] 100 microgm PO DAILY@0700 #30 tab 09/12/18 12/01/18 Unknown Rx Albuterol 2.5MG/Ipratrop 0.5MG 3 ml INH RTQ4H neb 12/23/18 Unknown Rx [Duoneb (A & A)] Benzonatate [Tessalon] 100 mg PO TID PRN PRN capsule 12/23/18 Unknown Rx Diphenhyramine/Al&mg Oh/Lido [Mbx 15 ml MT 4XDAY PRN PRN bottle 12/23/18 Unknown Rx Solution] Fluconazole 100 mg PO DAILY #10 tab 12/23/18 Unknown Rx Gabapentin [Neurontin] 200 mg PO BID capsule 12/23/18 Unknown Rx Guaifenesin E.r. [Mucinex] 600 mg PO Q12HR tablet 12/23/18 Unknown Rx Hydrocodone/APAP 10 mg/325 mg 1 ea PO Q6H PRN PRN #20 tab 12/23/18 Unknown Rx [[place]-10] Levofloxacin [Levaquin] 750 mg PO DAILY #3 tablet 12/23/18 Unknown Rx Lidocaine 5% Patch [Lidoderm] 1 each TOP DAILY patch 12/23/18 Unknown Rx Lorazepam [Ativan] 0.5 mg PO QHS PRN tablet 12/23/18 Unknown Rx Melatonin 3 mg PO QHS tablet 12/23/18 Unknown Rx Pantoprazole [Protonix] 40 mg PO BID tablet 12/23/18 Unknown Rx Prednisone 10 mg PO DAILY tablet 12/23/18 Unknown Rx Prednisone 20 mg PO DAILY tablet 12/23/18 Unknown Rx Prednisone 30 mg PO DAILY tablet 12/23/18 Unknown Rx - History of Present Illness -Gen Adult Nature of Presenting Problems: 58 yof presents to the ed via ems with c/o SOB and AMS this am. family found pt sitting at the kitchen table this am with her O2 off. pt is noncompliant with continuos O2 at 2.5 LPM. family told ems that placed O2 back on pt and helped he r to bed. then called 911. pt is confused and making grunting noise on exam. pt does not follow commands but is alert. pt has had multiple recent falls and has seen pcp since falls. pt has bruising noted to left shoulder, and left face, and rt medial thigh and linear abrasion to left lower leg. Location of Pain/Injury: reports: none Pain Radiation: reports: no radiation Quality of Pain: reports: none Severity: reports: moderate Onset/Duration: reports: this morning (unsure of exact time) Timing: reports: still present Context/Activities at Onset: reports: light activity Modifying Factors: improves with: nothing Associated Symptoms: reports: fatigue, shortness of breath, other (confusion with freq falls). denies: back/neck pain, chest pain, diaphoresis, fever/chills, vomiting, weakness Similar Symptoms Previously?: Yes (non compliant with O2) Recently seen or treated by another doctor?: No Review of Systems - Adult - REVIEW OF SYSTEMS - ADULT ROS:: unobtainable per condition Constitutional: reports: no symptoms reported Eyes: reports: no symptoms reported Ears, Nose, Mouth & Throat: reports: no symptoms reported Cardiovascular: denies: chest pain, palpitations Respiratory: reports: see HPI, dyspnea on exertion, shortness of breath. denies: wheezing Gastrointestinal: denies: diarrhea, nausea, vomiting Genitourinary: reports: no symptoms reported Musculoskeletal: reports: no symptoms reported Integumentary: reports: no symptoms reported Neurological: reports: see HPI, other (confusion and grunting). denies: ataxia, dizziness/vertigo, slurred speech Psychiatric: reports: no symptoms reported Endocrine: reports: no symptoms reported Hematologic/Lymphatic: reports: no symptoms reported Allergic/Immunologic: reports: no symptoms reported All Other Systems: Reviewed and Negative Past History - Adult - PAST MEDICAL HISTORY-ADULT Review of Records: reports: Old Records Reviewed, Nursing Assessment Review, Medications Reviewed, Social history reviewed & non-contributory. Major Childhood Illnesses: reports: denies history Cardiovascular: reports: cardiac disease (anxiety), HTN, hyperlipidemia Respiratory: reports: asthma, COPD Gastrointestinal: reports: GERD Obstetrical/Gynecological: reports: denies history Genitourinary: reports: denies history Musculoskeletal: reports: chronic pain Neurological: reports: denies history Psychiatric: reports: denies history Endocrine/Immune: reports: thyroid disorder (hypothyroid) Other Conditions: reports: denies history - PRIOR SURGERIES/PROCEDURES Surgical/Procedure History: reports: recent surgery, appendectomy, cholecystectomy, hysterectomy, other (bx breasts) - IMMUNIZATION STATUS Childhood Immunizations: See Nurse Assessment Flu Vaccine: See Nurse Assessment - FAMILY HISTORY Family History: reviewed, not pertinent - SOCIAL HISTORY Smoking: cigarettes, less than 1 pack/day Provider spent 3-5 mins advising pt. on dangers of tobacco.: Discussed manners to quit use, and f/u contacts for add'l counseling. Substance Use: alcohol Alcohol Use Frequency: occasionally Number of drinks per typical drinking period:: 3-4 drinks Living Situation: family Physical Exam-General - PHYSICAL EXAM-ADULT Initial Vital Signs Reviewed: Yes - CONSTITUTIONAL General Appearance: alert, moderate distress - EYES Eyes: PERRL/EOMI, pink conjunctivae - HEAD, EARS, NOSE, MOUTH & THROAT HENMT: moist mucous membranes, normal ENT inspection - NECK Neck: non-tender, full range of motion, supple, normal inspection - RESPIRATORY Respiratory: chest non-tender, lungs clear, respiratory distress, increased rate (28). negative: crackles, rales, rhonchi, stridor, wheezing - CARDIOVASCULAR Cardiovascular: normal peripheral pulses, regular rate, rhythm - GASTROINTESTINAL (ABDOMEN) Abdominal Exam: normal bowel sounds, non tender, soft - LYMPHATIC Lymphatic: no adenopathy - MUSCULOSKELETAL Back Exam: normal inspection, no CVA tenderness, no vertebral tenderness Extremity: no calf tenderness, normal capillary refill, pelvis stable, tenderness (left shoulder), other (bruising noted left shoulder and rt medial thigh and to left temporal region of face) - SKIN Integumentary: normal color, normal turgor, warm/dry, abrasion(s) (old, linear abrasion to left lower leg), ecchymosis (bruising noted left shoulder and rt medial thigh and to left temporal region of face). negative: cyanosis - NEUROLOGIC Neurologic: no motor/sensory deficits. negative: facial droop, focal weakness, motor weakness - PSYCHIATRIC Psych/Mental Status: anxious, other (oriented to person and place unable to answer questions) Progress - PLAN OF CARE/RESULTS Progress/Plan/Lab Results: Vital Signs - 8 hr 02/18/19 09:32 Temperature 98.8 F Pulse Rate 89 Respiratory Rate 28 H Blood Pressure 130/76 O2 Sat by Pulse Oximetry 93 L Orders Category Date Time Status CHEST-2 VIEWS [RAD] Stat Exams 02/18/19 09:[address] HEAD W/O CONTRAST [CT] Stat Exams 02/18/19 09:48 Ordered SHOULDER-LEFT [RAD] Stat Exams 02/18/19 09:48 Ordered ABG [RESP] Routine Lab 02/18/19 09:48 Ordered CBC WITH DIFF [HEME] Stat Lab 02/18/19 09:48 Uncollected CK PROFILE [SP CHEM] Stat Lab 02/18/19 09:48 Uncollected COMPREHENSIVE METABOLIC PANEL [CHEM] Stat Lab 02/18/19 09:48 Uncollected TROPONIN T Stat Lab 02/18/19 09:48 Uncollected URINALYSIS W/POSS RFLX CULT [URINALYSIS] Stat Lab 02/18/19 09:48 Uncollected EKG [EKG] Stat Ther 02/18/19 09:59 Ordered Result Diagrams: 02/18/19 10:15 02/18/19 10:15 - REASSESSMENT Reassessment #1 Time Reassessed: 10:39 (discussed ABGs with Dr Roe, agrees with placing pt on Bipap) Reassessment #2 Time Reassessed: 10:46 (Pt more alert. Still difficult to understand pt. Pt made aware will be placing on bipap. RT at bedside to placed bipap. Will reassess after bipap.) Reassessment #3 Time Reassessed: 11:40 (In room to reassess pt, pt pulling at bipap masking attempting to pull it off. Instructed pt to keep mask on and that will order medication to make her more comfortable. RN made aware.) Reassessment #4 Time Reassessed: 12:49 (called to pt room by RN, Pt has decreased gag reflex. Dr Roe called to bedside for intubation. Pt intubated without difficulty per Dr Roe. Pt requests order fentynl and versed drip for sedation.) - EKG 1 Time of EKG reading by physician:: 09:51 EKG Read and Signed by:: Sasha Roe EKG Interpretation (*Must complete 3 of following elements*): Abnormal (cannot r ule out anterior infarct age undetermined) Rate: 87 Rhythm: sinus Sel[place]: normal QRS: PVC's NC Interval: normal - XRAY 1 XRAY: Left XRAY Study: Shoulder Impression: See EMR Report ( Bones are intact and normally aligned. Joint spaces and soft tissues are clear. IMPRESSION: Negative exam. Electronically signed by Devin Russo 02/18/2019 12:02 PM) 2 XRAY Study: Chest Impression: See EMR Report (There has been resolution of the soft tissue gas. Heart size is top normal. No infiltrates or edema. Stable nodular area of thickening at the right lung apex. IMPRESSION: Right apical nodular density stable from prior exams. Electronically signed by Devin Russo 02/18/2019 12:04 PM) Comparison with other Films: no changes - CONSULTS/PCP/HOSPITALIST Notification #1 *Consult/PCP/Hospitalist*: Dr Galvin Time Discussed: 13:10 Reason/Comments: spoke with Tami with hospitalist service Consult Disposition: Admit Procedures - INTUBATION Time of Intubation: 12:39 Mallampati Class: 1 Intubation Method: orotracheal Equipment: Glidescope Tube Size (cm): 7.0 (23 at lip line) Pretreated with 100% Oxygen?: Yes Breath Sounds after Intubation: equal ETT Primary Tube Confirmation: Capnometry CO2 Change, Direct Visualization, Chest Rise and Fall Intubation Complications: no complications Vent Settings: See Respiratory Therapy Notes Departure - Departure Date of Disposition Decision: 02/18/19 Time of Disposition Decision: 13:10 DIAGNOSIS: COPD exacerbation, Tobacco abuse disorder Altered mental status Qualifiers: Altered mental status type: unspecified Qualified Code(s): R41.82 - Altered mental status, unspecified Disposition: ADMITTED INPATIENT 09 Certified Medical Emergency: Emergent Condition: Critical - Critical Care Note This patient required my direct & personal management of CC.: Yes Total Time (mins): 45 Critical Care Statement: This patient required my direct personal management to treat or rule out processes, the absence of which, could potentiallly result in sudden, clinically significant life or limb threatening deterioration. Attestation - Physician/ CORY Attestation Patient care was provided by Advanced Practice Provider:: Yes Advanced Practice Provider:: Marilu Forte Advanced Practice Provider documentation review:: The Mid-level provider documentation, treatment plan and medical decision making was reviewed by the physician who agrees with all treatment and medical decision making by the MLP. The physician spent face to face time with patient:: Yes (dr roe intubated pt) Advanced Practice Provider documentation review:: Supervising physician onsite and consulted in the evaluation and care of this patient. The physician did have a face to face encounter with the patient. This chart was documented by the indicated scribe, (Ann-Marie Donnelly Scribe) and accurately reflects the services I performed and decisions made by me, Marilu Forte CRNP, as attested by the provider's signature.
[2019-02-18] MEDS ORDERED: NS 1,000 ML IV ONE (17:17)
[2019-02-18] MEDS ORDERED: LEVOPHED 8 MG in D5 1/2 NS 250 ML IV SCH (17:30)
--- NOTE | 2019-02-18 18:56 | HISTORY AND PHYSICAL ---
Addendum to history and physical dictated by the nurse practitioner. I agree with most components of history, physical, assessment and plan. I talked with the patient's son, Mr. Gregorio, to gather pertinent components of history. Apparently, patient has been in good functional status until yesterday. She does use oxygen at home for her COPD. She visited her regular doctor yesterday for persistent chest pain and some mild shortness of breath. She also had a fall episode 4 days prior to her visit to primary care provider. Primary care provider had performed chest x-ray and head CT, the results of which were pending. The patient usually lives with her mother and is able to carry out her activities without too much trouble though she uses oxygen. She continues to smoke. Today morning, the patient's mother called patient's son that the patient was sitting on the floor in mild shortness of breath and a little confused. When the son arrived in about 5 minutes, he noticed that the patient was mildly short of breath and was very weak. She, however, was responding to verbal command and answering a few questions. The patient's son picked her up and took her to her bed. At that time, she was mildly short of breath. The patient was not initially using oxygen at that time, so the son hooked her with her home oxygen. However, after 20 minutes of oxygenation, she still was very confused. She was mumbling something that did not make sense and she was not able to tell what year it was, so patient's son called the EMR. The patient is currently receiving pain medications from the Pain Clinic as well as from her retail supervisor. As per the history given to me by the son, she is currently taking hydrocodone 10 mg 4 times a day which she receives from her Pain Clinic and the patient's son keeps a close eye over the fact that she only gets 4 tablets in a day's time. However, the patient's retail supervisor gives her prescription of Xanax for insomnia and poor appetite, and patient does not allow her son to get an access of these medications and she takes Xanax on her own. According to her son, she took 1 [place] today morning. However, he was not sure if she took any Xanax. ER course: She was found to have acute hypercarbic respiratory failure and she apparently did not tolerate BiPAP as she was hypoxic, so she was intubated. At the time of my evaluation, she was already started on fentanyl and midazolam drip. PHYSICAL EXAMINATION: VITAL SIGNS: Currently, vitals suggest temperature of 98.8, pulse of 79, respiratory rate 18, blood pressure in the emergency room was 140/70. She was saturating 99%. I repeated on physical examination. GENERAL: Her pupils about 2 mm size, not reacting to light. She is intubated. She has multiple bruises over bilateral upper and lower extremities. LUNGS: Air entry bilaterally equal. No wheeze, rhonchi or crackles. CARDIOVASCULAR: S1, S2 normal. She had mid systolic murmur affecting left 2nd intercostal space without any rub or gallop. ABDOMEN: Soft, nontender. No lower extremity edema. NEUROLOGIC: On examination, she starts becoming restless to strong physical stimuli and tries to play with the endotracheal tube. She is responding to painful stimuli all extremities. LABS: Suggestive of normocytic anemia. Acute hypercarbic and hypoxic respiratory failure. Repeat ABG suggests improvement in pH and pCO2 and I had suggested ventilator changes. Acute kidney injury. Microbiology: No new microbiological data. Imaging: Chest x-ray performed did not detect any acute pathology. She did have stable nodular area and thickening at the right lung apex, which was present on previous chest x-ray as well. Head CT was unremarkable. ASSESSMENT: 1. Acute hypoxic hypercarbic respiratory failure, likely in the setting of opioid and benzodiazepine use. 2. Acute encephalopathy in the setting of hypoxia and hypercarbia. 3. Acute kidney injury. 4. Hypotension due to volume depletion and propofol use. 4. Chronic opioid and benzodiazepine abuse and cardiac arrest because of overdose multiple times in the past. 5. History of chronic gastroesophageal reflux disease. 6. History of anxiety. PLAN: The patient is intubated. I increased her respiratory rate to 16, following repeat ABG and will follow up ABG 4 hours later. We will provide sedation with intravenous propofol and I will stop the intravenous opioid, fentanyl and midazolam infusions. I will continue intravenous resuscitation for acute kidney injury, which could be in the setting of current critical illness, hypoxic hypercarbic respiratory failure and suspected hypotension. I will give her albuterol ipratropium nebulization. CODE STATUS: Full. I called patient's son who I suppose is a surrogate decision maker and obtained pertinent history as mentioned above. I will involve care management team to notify patient's Pain Clinic as well as retail supervisor about current admission so that in future, she should not receive any benzodiazepine and/or potentially opioid medications. Plan of care was discussed with patient's son. TIME SPENT: More than 30 minutes of critical care time was spent in taking care of this patient. cc: Justin Galvin MD MTDD
[2019-02-18] MEDS: LOVENOX SUBQ SCH (19:29)
--- NOTE | 2019-02-18 21:37 | PULMONOLOGY CONSULTATION ---
DATE: 02/18/2019 REASON FOR CONSULTATION: Respiratory failure. HISTORY OF PRESENT ILLNESS: Ms. Bolden is a 58-year-old white female with COPD, hypoxemic respiratory failure, ongoing tobacco use, chronic benzodiazepine and narcotic use, and prior admission to the hospital for cardiopulmonary arrest in November of this year. She became progressively confused this morning. The patient has had multiple recent falls. The patient was brought to the emergency room. Arterial blood gas revealed pH 7.20, pCO2 of 62, pO2 of 61. Her carboxyhemoglobin level was elevated at 5. The patient failed attempt of BiPAP and was subsequently intubated and initiated on mechanical ventilation. She has been transferred to the intensive care unit. She can provide no additional history. PAST MEDICAL HISTORY: Problem list: 1. Status post cardiopulmonary arrest 11/25/2018. 2. COPD with ongoing tobacco use. 3. Coronary artery disease. 4. Chronic pain syndrome. 5. Chronic anxiety syndrome. 6. Gastroesophageal reflux disease. 7. Hypothyroidism. SOCIAL HISTORY: The patient lives with mother. She has ongoing tobacco and alcohol use. FAMILY HISTORY: Not immediately available for review. REVIEW OF SYSTEMS: Cannot be obtained. PHYSICAL EXAMINATION: Physical exam reveals a frail, chronically ill-appearing white female who appears older than her stated age of 58. BP 92/56, heart rate 67, respiratory rate 16, oxygen saturation 100%. HEENT: Pupils are equal but sluggish. Oropharynx appears clear. Neck is supple. Chest reveals prolonged expiratory phase with faint distant wheezing. Cardiac exam: Distant heart sounds. Normal S1, normal S2. Abdomen is soft, without bowel sounds. Extremities are slightly cool to the touch. LABORATORY DATA: White blood count 6.19, hemoglobin 11.3, platelet count 296,000. Arterial blood gas on mechanical ventilation: PH 7.27, pCO2 of 54, pO2 of 109. Sodium 137, potassium 5.0, chloride 97, bicarbonate 22, BUN 32, creatinine 1.8. Troponin negative but CPKs are positive. DIAGNOSTIC DATA: Chest x-ray reveals endotracheal tube in good position. CT scan of the brain reveals no evidence of acute intracranial pathology. IMPRESSION: 1. A 58-year-old with severe chronic obstructive pulmonary disease. 2. Ongoing tobacco use. 3. Chronic pain syndrome. 4. Chronic anxiety syndrome. 5. Acute hypoxemic respiratory failure. 6. Acute hypercapnic respiratory failure. 7. Altered mental status. 8. Acute renal failure. RECOMMENDATIONS: 1. Continue full ventilatory support. 2. Send sputum for culture and sensitivity. 3. We will use propofol to allow any narcotic or benzodiazepine to be metabolized. 4. Continue fluid resuscitation. 5. DVT prophylaxis. 6. Gastric acid suppression. 7. Continue to trend CPK and troponin. 8. Smoking cessation education. 9. Prognosis is guarded, given the patient's ongoing noncompliance. Time spent in critical care: One hour. cc: Jossue Alvarado MD
[2019-02-19] MEDS: DIPRIVAN 1% 1,000 MG/100 ML BOTTLE IV SCH ×3 (01:05→09:42)
[2019-02-19] MEDS: NS 1,000 ML IV SCH ×3 (02:10→12:30)
[2019-02-19] MEDS: PROTONIX IV SCH ×2 (02:59→15:34)
[2019-02-19] MEDS: DUONEB (A & A) INH SCH ×6 (03:19→23:35)
[2019-02-19 04:52] LABS: ALLEN TEST YES; BE -4.9 mmoll (-3.0-3.0); BLOOD TYPE ARTERIAL; METHB 0.7 % (0.0-1.5); O2(CT) 16.7 mL/dL (15.0-23.0); PCO2(98.6) 39 mmHg (35-45); PO2(98.6) 74 mmHg (60-100); SAMPLE BLOOD; SAO2 96.3 % (95.0-100.0); SRATE 12 BPM; THB 12.6 g/dL (11.5-17.4); TVOL 650 mL; pH(98.6) 7.33 (7.35-7.45)
[2019-02-19 04:55] LABS: MODALITY VENTILATOR
[2019-02-19 05:12] LABS: BASO# 0.02 X1000 (0.0-0.2); BASO% 0.2 % (0.0-0.8); HEMATOCRIT 30.7 % (37.0-47.0); HEMOGLOBIN 9.3 g/dL (12.0-16.0); IMM GRAN# 0.02 X1000 (0.0-0.04); IMM GRAN% 0.2 % (0.0-0.5); LYMPH# 2.15 X1000 (1.2-3.4); LYMPH% 24.8 % (20.5-51.1); MCH 29.5 PG (27-31); MCHC 30.3 g/dL (33-37); MCV 97.5 FL (81-99); MONO# 0.71 X1000 (0.11-0.59); MONO% 8.2 % (1.7-9.3); MPV 11.7 FL (7.4-10.4); NEUT# 5.78 X1000 (1.4-6.5); NEUT% 66.6 % (42.2-75.2); PLT 267 X1000 (130-400); RBC 3.15 XMIL (4.2-5.4); RDW 18.9 % (11.5-14.5); WBC 8.68 X1000 (4.8-10.8)
[2019-02-19 05:34] LABS: AGAP 14; ALB/GLOB RATIO 1.6; ALBUMIN 3.3 g/dL (3.5-5.0); ALKALINE PHOSPHATASE 60 U/L (32-104); BUN 20 mg/dL (8-22); CALCIUM 7.8 mg/dL (8.8-10.2); CHLORIDE 110 mmol/L (98-107); CK PROFILE 710 U/L (24-173); COSMO 286; CREATININE 0.9 mg/dL (0.5-0.9); ESTIMATED GFR > 60; GLUCOSE 73 mg/dL (70-104); GOT 32 U/L (10-30); GPT 13 U/L (10-36); POTASSIUM 3.8 mmol/L (3.5-5.1); SODIUM 143 mmol/L (136-145); TCO2 19 mmol/L (25-35); TOTAL BILIRUBIN < 0.15 mg/dL (0.20-1.00); TOTAL PROTEIN 5.4 g/dL (6.3-8.3)
[2019-02-19 06:23] LABS: CK INDEX 1.9 (0.0-2.5); CK-MB 13.81 ng/mL (0.0-5.0)
--- NOTE | 2019-02-19 07:12 | Diag Imaging Result Doc PS360 ---
EXAM: CHEST-PORTABLE 02/19/2019 HISTORY: mech vent acute resp failure TECHNIQUE: AP portable at 0416 COMMENT: There is an NG tube with its tip below the diaphragm. There is an endotracheal tube with its tip at the thalia. This has apparently advanced since the previous study of 02/18/2019. The inspiration is less optimal. There is ill-defined opacity in the mid left lung field which was not previously appreciable. IMPRESSION: Atelectasis versus pneumonia in the lingula. Poor inspiration. Endotracheal tube at the thalia. Electronically signed by Dick Coronado 02/19/2019 7:10 AM
--- NOTE | 2019-02-19 07:50 | EKG Report ---
Test Performed on : 02/19/2019 07:07:25 AM Test Reason : chest pain Blood Pressure : / mmHG Vent. Rate : 057 BPM Atrial Rate : 057 BPM P-R Int : 120 ms QRS Dur : 076 ms QT Int : 460 ms P-R-T Axes : -37 061 042 degrees QTc Int : 447 ms Unusual P axis, possible ectopic atrial bradycardia. with occasional premature ventricular complexes. Abnormal ECG When compared with ECG of 18-FEB-2019 09:51, (Unconfirmed) Ectopic atrial rhythm. has replaced Sinus rhythm. Vent. rate has decreased BY 30 BPM Unconfirmed Result
[2019-02-19] MEDS ORDERED: HALDOL IV PRN (08:13)
[2019-02-19] MEDS: ZOSYN 3.375 GM in NS 50 ML IV SCH ×3 (12:43→23:48)
[2019-02-19] MEDS: ZYVOX 600 MG/D5W 600 MG/300 ML IVPB IV SCH (13:28)
--- NOTE | 2019-02-19 13:48 | PROGRESS NOTE ---
DATE: 02/19/2019 SUBJECTIVE: She is intubated, somewhat sedated, but she has a very high tolerance because she has had a very longstanding history of dependence on benzo's and multiple other medications including pain medications. OBJECTIVE: Vital Signs: Blood pressure 101/56, heart rate 67, respiratory rate and temperature was 98 degrees. Cardiovascular: Regular rate and rhythm. Pulmonary: Bilateral breath sounds clear to auscultation. GI: Soft, nontender, and nondistended. Bowel sounds are positive. Extremities: Exam with no clubbing or cyanosis. Lymphatic: No peripheral edema. Neurological: Nonfocal. LABORATORY DATA: White count is 8, hemoglobin and hematocrit 9 and 30, platelets 267,000. Blood gas is pretty good, pH 7.33, pCO2 39, PaO2 of 74. CMP negative. CK-MB's are elevated with negative troponin's. Chest x-ray shows atelectasis versus a lingular pneumonia. PROBLEM LIST: 1. Acute respiratory failure likely related to chronic obstructive pulmonary disease and possible sedation medications. She is doing well. I think probably getting close to extubation with the spontaneous breathing trial today. Pulmonary Dr. Alvarado is following him and manages her respiratory failure. 2. Encephalopathy has improved. 3. Acute kidney injury. Her kidney function has improved. She looks a little overloaded to me, or at least she has periorbital edema. Plan: I am going to diurese her a bit today. 4. Chronic obstructive pulmonary disease. Continue breathing treatments. 5. Pain and anxiety syndrome. I have taken care of her before, and she has a flat out admitted to me that she over takes her medications not necessarily intentionally. She just forgets she takes medicines. We discussed how dangerous that is, and these medicines that she is on are going to have issues, but she is not having any issues. We will see how things go. Hopefully, discharge in the next 24 hours. cc: Mayo Maldonado MD
[2019-02-19 14:00] LABS: ALLEN TEST NO; BE -4.9 mmoll (-3.0-3.0); BLOOD TYPE ARTERIAL; METHB 1.2 % (0.0-1.5); O2(CT) 12.4 mL/dL (15.0-23.0); O2HB 90.3 % (95.0-99.0); PCO2(98.6) 42 mmHg (35-45); PO2(98.6) 58 mmHg (60-100); SAMPLE BLOOD; SAO2 92.8 % (95.0-100.0); THB 9.7 g/dL (11.5-17.4); pH(98.6) 7.31 (7.35-7.45)
[2019-02-19 14:01] LABS: MODALITY VENTILATOR
--- NOTE | 2019-02-19 15:05 | PULMONOLOGY PROGRESS NOTE ---
DATE: 02/19/2019 SUBJECTIVE: Propofol is currently on hold. She does not yet respond to voice. She does have some spontaneous respiratory efforts. OBJECTIVE: Vital Signs: The patient has been afebrile over the last 24 hours. Blood pressure 105/56, heart rate 67, respiratory rate 19, oxygen saturation 100%. HEENT: Pupils were midpoint and do react to light. Oropharynx appears dry but clear. Neck: Supple. Chest: Reveals prolonged expiratory phase. Cardiac Examination: S1 and S2. Abdomen: Soft with diminished bowel sounds. Extremities: Reveal trace edema. Laboratories: Arterial blood gas reveals a pH of 7.33, pCO2 of 39, PO2 of 74, with a normal lactate. White blood count 8.7, hemoglobin 9.3, platelet count 267,000. Sputum culture is pending but requires more incubation. Chest x-ray reveals increased changes in the lingula, consistent with pneumonia. IMPRESSION: A 58-year-old with: 1. Severe chronic obstructive pulmonary disease. 2. Ongoing tobacco use. 3. Chronic pain syndrome with persistent drug-seeking behavior during prior hospital admission. 4. Acute hypoxemic respiratory failure. 5. Acute hypercapnic respiratory failure. 6. Altered mental status. 7. Acute renal failure, which is resolving. 8. Lingular pneumonia, culture pending. RECOMMENDATIONS: 1. Continue spontaneous breathing trial. We will delay extubation if she does not improve from a mentation standpoint. 2. Initiate antibiotics for pneumonia. 3. Continue bronchodilators. 4. Continue fluids. 5. Continue mechanical ventilation with extubation pending improvement in mental status. cc: Jossue Alvarado MD
[2019-02-19] MEDS: SODIUM CHLORIDE 0.9% INJ SCH (15:34)
[2019-02-19] MEDS: HALDOL IV PRN ×2 (17:35→21:36)
[2019-02-19] MEDS: LOVENOX SUBQ SCH (18:03)
[2019-02-20] MEDS: ZYVOX 600 MG/D5W 600 MG/300 ML IVPB IV SCH ×2 (00:54→16:42)
[2019-02-20] MEDS: NS 1,000 ML IV SCH ×3 (01:59→15:35)
[2019-02-20] MEDS: PROTONIX IV SCH ×2 (03:05→16:42)
[2019-02-20] MEDS: DUONEB (A & A) INH SCH ×5 (03:10→19:26)
[2019-02-20 04:19] LABS: ALLEN TEST YES; BE -2.5 mmoll (-3.0-3.0); BLOOD TYPE ARTERIAL; METHB 1.3 % (0.0-1.5); O2(CT) 12.7 mL/dL (15.0-23.0); PCO2(98.6) 39 mmHg (35-45); PO2(98.6) 79 mmHg (60-100); SAMPLE BLOOD; SAO2 97.7 % (95.0-100.0); THB 9.4 g/dL (11.5-17.4); pH(98.6) 7.37 (7.35-7.45)
[2019-02-20 04:20] LABS: MODALITY CANNULA
[2019-02-20 04:37] LABS: BASO# 0.04 X1000 (0.0-0.2); BASO% 0.7 % (0.0-0.8); HEMATOCRIT 28.5 % (37.0-47.0); HEMOGLOBIN 8.9 g/dL (12.0-16.0); LYMPH% 22.1 % (20.5-51.1); MCH 30.1 PG (27-31); MCHC 31.2 g/dL (33-37); MCV 96.3 FL (81-99); MONO# 0.47 X1000 (0.11-0.59); MONO% 8.7 % (1.7-9.3); MPV 11.6 FL (7.4-10.4); NEUT# 3.72 X1000 (1.4-6.5); NEUT% 68.5 % (42.2-75.2); PLT 200 X1000 (130-400); RBC 2.96 XMIL (4.2-5.4); RDW 18.3 % (11.5-14.5); WBC 5.43 X1000 (4.8-10.8)
[2019-02-20 05:01] LABS: AGAP 14; ALB/GLOB RATIO 1.4; ALBUMIN 3.2 g/dL (3.5-5.0); ALKALINE PHOSPHATASE 54 U/L (32-104); BUN 7 mg/dL (8-22); CALCIUM 7.9 mg/dL (8.8-10.2); CHLORIDE 107 mmol/L (98-107); COSMO 280; CREATININE 0.7 mg/dL (0.5-0.9); ESTIMATED GFR > 60; GLUCOSE 70 mg/dL (70-104); GOT 43 U/L (10-30); GPT 17 U/L (10-36); POTASSIUM 3.1 mmol/L (3.5-5.1); SODIUM 142 mmol/L (136-145); TCO2 21 mmol/L (25-35); TOTAL BILIRUBIN 0.26 mg/dL (0.20-1.00); TOTAL PROTEIN 5.5 g/dL (6.3-8.3)
[2019-02-20] MEDS: ZOSYN 3.375 GM in NS 50 ML IV SCH ×3 (05:41→21:45)
--- NOTE | 2019-02-20 06:17 | Diag Imaging Result Doc PS360 ---
EXAM: [facility] TECHNIQUE: Portable chest single view COMPARISON: 02/19/2019 FINDINGS: The endotracheal and nasogastric tubes have been removed. The lungs are well expanded. Right apical density remains. Infiltrates in the left lung are less pronounced. Heart is mildly prominent similar to the prior exam. No pleural effusions identified. IMPRESSION: Overall interval improvement Electronically signed by Dwayne Newsome 02/20/2019 6:15 AM
[2019-02-20] MEDS: NEURONTIN PO SCH ×2 (10:32→21:45)
--- NOTE | 2019-02-20 10:40 | PROGRESS NOTE ---
DATE: 02/20/2019 SUBJECTIVE: Patient is complaining of need for anxiety medications. She states she has not slept in a week, which she has been on the ventilator for a week, but the only thing that will work is benzodiazepines for which she clearly has a dependence issue with, and part of her reason why she has recurrent respiratory failure episodes requiring at this time intubation. She has significant COPD. She had cardiopulmonary arrest one of these times associated with that. She is still fixated on taking benzodiazepines, just very problematic. She says she just needs a couple. She wants 5 mg of Ativan, which is not a small dose by any means especially for someone her size. We discussed at length that that is not going to be an option at this time at least not for me. OBJECTIVE: Blood pressure is 140/84, heart rate 74, respiratory rate 22, temperature was 99.3 degrees, and she is 96% on 6 L.Cardiovascular: Regular rate and rhythm. Pulmonary: Bilateral breath sounds. No wheezing. No rales. GI: Soft, nontender, and nondistended. Bowel sounds are positive. LABORATORY: White count 5, hemoglobin and hematocrit 8.9 and 28.5, platelets of 200,000. A pH 7.37, pCO2 39, PaO2 79 and potassium is 3.1. Chest x-ray shows improvement. She still has a right apical infiltrate which may be an aspiration type pneumonia. PROBLEM LIST: 1. Acute hypercapnic respiratory failure, hypoxic respiratory failure. She is stabilizing. She is extubated. I think she just needs to comply with not taking these medications. I have started some Neurontin in an attempt to see if that may help relax her, trazodone and sleep. Even with these medications, we will have to be very careful because she just abuses them on an outpatient basis at least the benzo's. She also states that these medications do not work. Gabapentin and BuSpar, I am not sure she may have some chronic hypoxia issues that have kind of caused some confusion. I am not sure, but we will continue supportive care. 2. Hypokalemia. We will supplement and follow. 3. Acute kidney injury that is resolved. 4. Chronic obstructive pulmonary disease exacerbation. She is on breathing treatments. 5. Disposition: Transfer to the floor, and then we will try to get her home. Explained to her at length that I would not prescribe her benzodiazepines. I think in her case they are life- threatening. This really is her only focus even at the risk of her own life, and complications from taking these medications. cc: Mayo Maldonado MD
[2019-02-20] MEDS: SODIUM CHLORIDE 0.9% INJ SCH (16:42)
--- NOTE | 2019-02-20 17:40 | PULMONOLOGY PROGRESS NOTE ---
DATE: 02/20/2019 SUBJECTIVE: The patient is doing well off mechanical ventilation. She is demanding anxiety medicines and pain medicines and reports "dogs are treated better than people." OBJECTIVE: Vital Signs: Blood pressure 135/77, heart rate 69, respiratory rate 19, oxygen saturation 97%. HEENT: Pupils are equal and reactive. Oropharynx is clear. Neck: Supple. Chest: Reveals occasional rhonchi bilaterally. Cardiac exam: S1, S2. Abdomen: Soft . Extremities: Reveal trace edema. LABORATORIES/X-RAY: Chest x-ray reveals stable right apical density in with decreased infiltrates on the left. White blood count 5.43, hemoglobin 8.9, platelet count 200,000. Chemistry: Sodium 142, potassium 3.1, chloride 107, bicarbonate 21, BUN 7, creatinine 0.7. Arterial blood gas, pH 7.37, pCO2 of 39, PO2 of 79. Microbiology: Sputum cultures are pending. IMPRESSION: 1. A 58-year-old with severe chronic obstructive pulmonary disease. 2. Ongoing tobacco use. 3. Chronic anxiety and pain syndrome. 4. Acute hypoxemic respiratory failure, possibly related to over medication. 5. Acute hypercapnic respiratory failure, likely related to over medication. 6. Altered mental status, which has resolved. 7. Acute renal failure, which has resolved. 8. Persistent density in the right apex. RECOMMENDATIONS: 1. Strongly encourage patient to discontinue tobacco use. 2. Continue oxygen for hypoxemic respiratory failure. 3. Continue current antibiotic regimen. 4. Continue bronchodilators. 5. Direct anxiety and pain medicines to be administered through the hospitalist service as dictated by Dr. Maldonado. 6. We will perform a CT scan of the thorax to re-evaluate the density in the right apex tomorrow. cc: Jossue Alvarado MD
[2019-02-20] MEDS: ATARAX PO PRN (21:45)
[2019-02-20] MEDS: HALDOL IV PRN (21:45)
[2019-02-20] MEDS: LOVENOX SUBQ SCH (21:45)
[2019-02-20] MEDS: DESYREL PO PRN (21:45)
[2019-02-20] MEDS ORDERED: CALMOSEPTINE OINTMENT TOP PRN (22:22)
[2019-02-21] MEDS: DUONEB (A & A) INH SCH ×7 (00:03→22:56)
[2019-02-21] MEDS: ZOSYN 3.375 GM in NS 50 ML IV SCH ×4 (05:37→20:55)
[2019-02-21] MEDS: PROTONIX IV SCH ×2 (05:37→17:07)
[2019-02-21] MEDS: ZYVOX 600 MG/D5W 600 MG/300 ML IVPB IV SCH ×2 (05:38→14:09)
[2019-02-21 07:34] LABS: BASO# 0.05 X1000 (0.0-0.2); BASO% 0.8 % (0.0-0.8); EOS# 0.15 X1000 (0.0-0.7); EOS% 2.5 % (0.0-10.0); HEMATOCRIT 32.8 % (37.0-47.0); LYMPH# 0.94 X1000 (1.2-3.4); LYMPH% 15.6 % (20.5-51.1); MCH 29.6 PG (27-31); MCHC 30.5 g/dL (33-37); MONO# 0.42 X1000 (0.11-0.59); MPV 11.1 FL (7.4-10.4); NEUT# 4.47 X1000 (1.4-6.5); NEUT% 74.1 % (42.2-75.2); PLT 244 X1000 (130-400); RBC 3.38 XMIL (4.2-5.4); RDW 18.5 % (11.5-14.5); WBC 6.03 X1000 (4.8-10.8)
[2019-02-21 08:15] LABS: AGAP 10; ALB/GLOB RATIO 1.4; ALBUMIN 3.1 g/dL (3.5-5.0); ALKALINE PHOSPHATASE 54 U/L (32-104); BUN 2 mg/dL (8-22); CALCIUM 7.8 mg/dL (8.8-10.2); CHLORIDE 111 mmol/L (98-107); COSMO 295; CREATININE 0.7 mg/dL (0.5-0.9); ESTIMATED GFR > 60; GLUCOSE 146 mg/dL (70-104); GOT 25 U/L (10-30); GPT 16 U/L (10-36); POTASSIUM 2.6 mmol/L (3.5-5.1); SODIUM 149 mmol/L (136-145); TCO2 28 mmol/L (25-35); TOTAL BILIRUBIN 0.27 mg/dL (0.20-1.00); TOTAL PROTEIN 5.3 g/dL (6.3-8.3)
[2019-02-21] MEDS: NEURONTIN PO SCH ×2 (09:16→20:55)
[2019-02-21] MEDS ORDERED: KLOR-CON PO ONE (14:59)
[2019-02-21] MEDS ORDERED: D5 1/2 NS 1,000 ML IV SCH (15:45)
--- NOTE | 2019-02-21 16:19 | PROGRESS NOTE ---
DATE: 02/21/2019 SUBJECTIVE: She seems okay. No major complaints. She is not agitated. Again, she is very fixated on getting benzodiazepines and pain medicine. Today, it is pain medicine. She is requiring pain medication. She has been prescribed pain medication by Dr. Smith, she states. Her home medicines have not been reconciled. She got some Xanax from Dr. Hunt. She has been on BuSpar. She got pain medicine in December, but from us. She says she has been on pain medication, but it is not in the system, and I am suspicious because of abuse issues that she has not been prescribed this medication. I am not prescribing her any pain medication. We can certainly give her Toradol; she is not allergic to that or Ultram, but she is very manipulative and have had a lot of issues with her pain medications OBJECTIVE: Vital Signs: Blood pressure 123/111, heart rate 81, respiratory rate 19, temperature 98.2 degrees, satting 98% on 4 L. Cardiovascular: Regular rate and rhythm. Pulmonary: Bilateral breath sounds. Clear to auscultation. GI: Soft, nontender, nondistended. Bowel sounds are positive. LABORATORY DATA: White count 6, hemoglobin and hematocrit 10 and 32, platelets 244. Sodium is 149, potassium 2.6. PROBLEM LIST: 1. Acute hypercapnic respiratory failure, hypoxic respiratory failure, status post extubation again related to sedating medications. She is on a little bit of Neurontin, trazodone for sleep at night and Atarax for anxiety, but I am not prescribing her benzodiazepines either outpatient or inpatient, and neither am I giving her narcotics at this point. She is upset with that. I do not think any of our providers, knowing her most recent history where she recurrently comes in with overdose, can safely give her those medications. We may even have to be careful with what we are giving her now. 2. Hypokalemia. Will supplement; change her fluids. 3. Acute kidney injury that has stabilized. 4. Chronic obstructive pulmonary disease exacerbation. Continue breathing treatments. DISPOSITION: She is extremely weak. We will get a PT evaluation. Dr. Alvarado has ordered a CT to evaluate for right upper quadrant, right upper lobe mass. We had a discussion about her code status. She said she is about ready to consider hospice for her pain medications, but I explained that would mean no intubation and she is not interested in that. She does want everything done at this point, so we will continue treatment as described and follow. She may end up needing some rehabilitation in the short term. cc: Mayo Maldonado MD
[2019-02-21] MEDS: SODIUM CHLORIDE 0.9% INJ SCH (17:07)
[2019-02-21] MEDS: POTASSIUM CHLORIDE 20 MEQ/SWI 20 MEQ/100 ML IVPB IV SCH ×2 (17:07→20:55)
[2019-02-21] MEDS: TORADOL IV PRN (17:07)
--- NOTE | 2019-02-21 17:29 | Diag Imaging Result Doc PS360 ---
EXAM: CT THORAX W/CONTRAST - 02/21/2019 HISTORY: rul density TECHNIQUE: CT thorax with intravenous contrast COMPARISON: 12/10/2018 CT thorax without contrast FINDINGS: There are emphysematous changes. There is stable soft tissue density lesion, which contains air bronchograms, at the posterior right apex. There are small bilateral pleural effusions which have increased. There is associated dependent/compressive atelectasis at the bilateral lower lobes. There is no other consolidation identified. There is no pneumothorax identified. There are mildly prominent mediastinal lymph nodes similar to prior. IMPRESSION: Stable right apical lesion, which contains air bronchograms, compared to prior. Emphysematous changes. Small bilateral pleural effusions with adjacent atelectasis, increased compared to prior. No discrete pneumonia. No evidence of pneumothorax. Stable mildly prominent mediastinal lymph nodes. This exam was performed using automated exposure control, adjustment of mA or kV according to patient size, and/or use of iterative reconstruction technique. Electronically signed by Haile Cerrato 02/21/2019 5:26 PM
[2019-02-21] MEDS: ATARAX PO PRN (20:55)
[2019-02-21] MEDS: DESYREL PO PRN (20:55)
[2019-02-21] MEDS: LOVENOX SUBQ SCH ×2 (20:55→20:58)
[2019-02-22] MEDS: DUONEB (A & A) INH SCH ×6 (04:15→23:54)
[2019-02-22] MEDS: ZOSYN 3.375 GM in NS 50 ML IV SCH ×4 (04:15→21:04)
[2019-02-22] MEDS: PROTONIX IV SCH ×2 (04:15→14:58)
[2019-02-22] MEDS: ZYVOX 600 MG/D5W 600 MG/300 ML IVPB IV SCH ×2 (04:30→16:00)
[2019-02-22 07:19] LABS: BASO# 0.08 X1000 (0.0-0.2); BASO% 1.5 % (0.0-0.8); EOS# 0.44 X1000 (0.0-0.7); EOS% 8.3 % (0.0-10.0); HEMATOCRIT 33.9 % (37.0-47.0); HEMOGLOBIN 10.5 g/dL (12.0-16.0); LYMPH# 0.93 X1000 (1.2-3.4); LYMPH% 17.5 % (20.5-51.1); MCH 30.3 PG (27-31); MCV 97.7 FL (81-99); MONO# 0.45 X1000 (0.11-0.59); MONO% 8.5 % (1.7-9.3); MPV 11.3 FL (7.4-10.4); NEUT# 3.42 X1000 (1.4-6.5); NEUT% 64.2 % (42.2-75.2); PLT 278 X1000 (130-400); RBC 3.47 XMIL (4.2-5.4); RDW 18.6 % (11.5-14.5); WBC 5.32 X1000 (4.8-10.8)
[2019-02-22 07:50] LABS: AGAP 9; ALB/GLOB RATIO 1.2; ALBUMIN 2.9 g/dL (3.5-5.0); ALKALINE PHOSPHATASE 48 U/L (32-104); BUN 1 mg/dL (8-22); CALCIUM 7.6 mg/dL (8.8-10.2); CHLORIDE 108 mmol/L (98-107); COSMO 289; CREATININE 0.6 mg/dL (0.5-0.9); ESTIMATED GFR > 60; GLUCOSE 120 mg/dL (70-104); GOT 17 U/L (10-30); GPT 13 U/L (10-36); POTASSIUM 2.9 mmol/L (3.5-5.1); SODIUM 147 mmol/L (136-145); TCO2 30 mmol/L (25-35); TOTAL BILIRUBIN 0.27 mg/dL (0.20-1.00); TOTAL PROTEIN 5.3 g/dL (6.3-8.3)
[2019-02-22] MEDS: NEURONTIN PO SCH ×2 (09:12→21:03)
[2019-02-22] MEDS ORDERED: KLOR-CON PO ONE (12:09)
[2019-02-22] MEDS: TORADOL IV PRN (12:37)
[2019-02-22] MEDS: POTASSIUM CHLORIDE 40 MEQ in D5 1/2 NS 1,000 ML IV SCH (14:54)
[2019-02-22] MEDS: SODIUM CHLORIDE 0.9% INJ SCH (14:58)
--- NOTE | 2019-02-22 18:34 | PROGRESS NOTE ---
DATE: 02/22/2019 SUBJECTIVE: The patient has no complaints. She wants something for pain. She wants her anxiety medicines. She states she is on Leighton, which is being prescribed for her, but I do not have verification of such. OBJECTIVE: Vital Signs: Blood pressure 140/80, heart rate 76, respiratory rate 19, temperature 98 degrees. Cardiovascular: Regular rate and rhythm. Pulmonary: Bilateral breath sounds. Clear to auscultation. GI: Soft, nontender, nondistended. Bowel sounds are positive. LABORATORY DATA: Sodium is still high at 147, potassium 2.9. PROBLEM LIST: 1. Respiratory failure, requiring intubation, which has now resolved. She is extubated. I have put her on some medications that are not benzos because I just think that is contributing to her issues. She is requesting some cough medication. We will give her some low-dose cough medication and see how she does, but it will only be 12 hours and I described we would not be discharging her on that. 2. Hypernatremia and hypokalemia. We will supplement. I have continued D5 half-normal on her fluids and follow. 3. Acute kidney injury. That appears to be stable or has resolved. 4. Right upper lobe mass. That is also stable for time being and will just need to be monitored. DISPOSITION: I think she is probably close to baseline. I am not sure where she is as far as her physical abilities. PT is working with her, but I anticipate she should be discharged soon. I would have very strong reservations about giving her any sedating medications at discharge, since she tends to abuse them. cc: Mayo Maldonado MD
[2019-02-22] MEDS: TUSSIONEX LIQUID PO PRN (18:35)
[2019-02-22] MEDS: ATARAX PO PRN (21:03)
[2019-02-22] MEDS: DESYREL PO PRN (21:03)
[2019-02-22] MEDS: LOVENOX SUBQ SCH (21:04)
[2019-02-23] MEDS: DUONEB (A & A) INH SCH ×6 (03:51→23:26)
[2019-02-23] MEDS: ZOSYN 3.375 GM in NS 50 ML IV SCH ×4 (04:11→20:39)
[2019-02-23] MEDS: PROTONIX IV SCH ×2 (04:11→15:14)
[2019-02-23] MEDS: ZYVOX 600 MG/D5W 600 MG/300 ML IVPB IV SCH ×2 (05:59→16:01)
[2019-02-23] MEDS: POTASSIUM CHLORIDE 40 MEQ in D5 1/2 NS 1,000 ML IV SCH ×2 (05:59→20:40)
[2019-02-23] MEDS: TUSSIONEX LIQUID PO PRN (06:09)
[2019-02-23 07:28] LABS: BASO# 0.05 X1000 (0.0-0.2); BASO% 0.8 % (0.0-0.8); EOS# 0.59 X1000 (0.0-0.7); EOS% 9.9 % (0.0-10.0); HEMATOCRIT 36.9 % (37.0-47.0); HEMOGLOBIN 11.1 g/dL (12.0-16.0); LYMPH# 1.15 X1000 (1.2-3.4); LYMPH% 19.3 % (20.5-51.1); MCH 29.4 PG (27-31); MCHC 30.1 g/dL (33-37); MCV 97.9 FL (81-99); MONO# 0.41 X1000 (0.11-0.59); MONO% 6.9 % (1.7-9.3); MPV 11.1 FL (7.4-10.4); NEUT# 3.77 X1000 (1.4-6.5); NEUT% 63.1 % (42.2-75.2); PLT 291 X1000 (130-400); RBC 3.77 XMIL (4.2-5.4); RDW 18.5 % (11.5-14.5); WBC 5.97 X1000 (4.8-10.8)
[2019-02-23 07:48] LABS: AGAP 9; ALB/GLOB RATIO 1.2; ALBUMIN 2.9 g/dL (3.5-5.0); ALKALINE PHOSPHATASE 46 U/L (32-104); BUN 2 mg/dL (8-22); CALCIUM 8.1 mg/dL (8.8-10.2); CHLORIDE 103 mmol/L (98-107); COSMO 283; CREATININE 0.6 mg/dL (0.5-0.9); ESTIMATED GFR > 60; GLUCOSE 103 mg/dL (70-104); GOT 13 U/L (10-30); GPT 11 U/L (10-36); POTASSIUM 4.1 mmol/L (3.5-5.1); SODIUM 144 mmol/L (136-145); TCO2 32 mmol/L (25-35); TOTAL BILIRUBIN 0.31 mg/dL (0.20-1.00); TOTAL PROTEIN 5.3 g/dL (6.3-8.3)
[2019-02-23] MEDS: NEURONTIN PO SCH ×2 (09:08→17:53)
--- NOTE | 2019-02-23 14:39 | PROGRESS NOTE ---
DATE: 02/23/2019 SUBJECTIVE: The patient is complaining today of shortness of breath. She is asking for pain medication. As per the patient, she has been on Pioneer. We are calling her pharmacy to corroborate this information. OBJECTIVE: Vital Signs: Temperature 98.1 degrees, pulse 84, respiratory rate 20, blood pressure 151/79, oxygen saturation 99% on 4 liters of nasal cannula. HEENT: Head normocephalic, no trauma. PERRLA. Neck: Supple, no JVD. Central trachea. Chest: Decreased breath sounds globally with prolonged expiratory phase and expiratory wheezing bilaterally. Abdomen: Soft, nontender, nondistended. No hepatosplenomegaly. Extremities: No edema. No clubbing. No cyanosis. Neurological: The patient is alert and oriented x3. No focal deficits. LABORATORY DATA: WBC 5.9, hemoglobin 11.1, hematocrit 36.9, platelets 291,000. Sodium 144, potassium 4.1, chloride 103, bicarbonate 32, BUN 2, creatinine 0.6, glucose 103, calcium 8.1, AST 13, ALT 11, alkaline phosphatase 46. ASSESSMENT AND PLAN: 1. Respiratory failure requiring intubation, resolved. She has been already extubated. We will continue with the same management. As per the patient, she has been coughing up white phlegm. She has not been complaining of fever or chills. She is apparently using oxygen at home, 2 liters. 2. Hypernatremia with hypokalemia, resolved. 3. Acute kidney injury, resolved. This is her baseline. 4. Right upper lobe mass/consolidation, stable. We will monitor. 5. Generalized weakness. Continue physical therapy. I will also ask occupational therapy to evaluate this patient. 6. Chronic anxiety and pain syndrome, aware. Like I said, I will ask her pharmacy to corroborate her medications. 7. Acute hypoxemic and hypercapnic respiratory failure, status post extubation, as above. 8. Altered mental status, resolved. cc: Isael Hayward MD
[2019-02-23] MEDS: SODIUM CHLORIDE 0.9% INJ SCH (15:14)
[2019-02-23] MEDS: NORCO-10 PO PRN (16:43)
[2019-02-23] MEDS ORDERED: NEURONTIN PO SCH (17:00)
[2019-02-23] MEDS ORDERED: BUSPAR PO SCH (17:00)
[2019-02-23] MEDS: LOVENOX SUBQ SCH (20:39)
--- NOTE | 2019-02-23 21:04 | PULMONOLOGY PROGRESS NOTE ---
DATE: 02/23/2019 SUBJECTIVE: The patient is awake, alert, and conversant. She is tolerating p.o. intake. She reports she is ready to go home. OBJECTIVE: Vital Signs: Blood pressure 147/91, heart rate 74, respiratory rate 20, oxygen saturation 99% on 4 L per nasal cannula. HEENT: Pupils are equal and reactive. Oropharynx is clear. Neck: Is supple. Chest: Reveals prolonged expiratory phase with scattered wheezing. Cardiac exam: S1-S2. Abdomen: Is soft and scaphoid. Extremities: Without edema. IMPRESSION: 1. A 58-year-old with chronic obstructive pulmonary disease. 2. Ongoing tobacco use. 3. Chronic anxiety and pain syndrome. 4. Acute hypoxemic respiratory failure. 5. Acute hypercapnic respiratory failure. 6. Chronic density at the right apex. RECOMMENDATIONS: 1. Continue current treatment regimen. 2. Continue oxygen for hypoxemic respiratory failure. 3. Encourage tobacco cessation. 4. Consider followup CT scan of the right apex. The area appears more scar-like, but followup scan should be performed in 4 to 6 months. cc: Jossue Alvarado MD
[2019-02-24] MEDS: NORCO-10 PO PRN ×2 (00:26→17:53)
[2019-02-24] MEDS: POTASSIUM CHLORIDE 40 MEQ in D5 1/2 NS 1,000 ML IV SCH ×2 (01:51→09:52)
[2019-02-24] MEDS: PROTONIX IV SCH ×2 (03:04→17:50)
[2019-02-24] MEDS: ZOSYN 3.375 GM in NS 50 ML IV SCH ×3 (03:04→17:49)
[2019-02-24] MEDS: SODIUM CHLORIDE 0.9% INJ SCH (03:04)
[2019-02-24] MEDS: DUONEB (A & A) INH SCH ×4 (04:09→16:34)
[2019-02-24] MEDS: ZYVOX 600 MG/D5W 600 MG/300 ML IVPB IV SCH ×2 (04:47→17:50)
[2019-02-24] MEDS ORDERED: SYNTHROID PO SCH (07:00)
[2019-02-24 07:27] LABS: BASO# 0.07 X1000 (0.0-0.2); EOS# 0.69 X1000 (0.0-0.7); EOS% 10.1 % (0.0-10.0); HEMATOCRIT 38.5 % (37.0-47.0); HEMOGLOBIN 11.7 g/dL (12.0-16.0); LYMPH# 1.09 X1000 (1.2-3.4); LYMPH% 15.9 % (20.5-51.1); MCH 29.5 PG (27-31); MCHC 30.4 g/dL (33-37); MCV 97.2 FL (81-99); MONO# 0.44 X1000 (0.11-0.59); MONO% 6.4 % (1.7-9.3); MPV 10.8 FL (7.4-10.4); NEUT# 4.55 X1000 (1.4-6.5); NEUT% 66.6 % (42.2-75.2); PLT 288 X1000 (130-400); RBC 3.96 XMIL (4.2-5.4); RDW 18.3 % (11.5-14.5); WBC 6.84 X1000 (4.8-10.8)
[2019-02-24 07:53] LABS: AGAP 8; BUN 6 mg/dL (8-22); CALCIUM 8.4 mg/dL (8.8-10.2); CHLORIDE 99 mmol/L (98-107); COSMO 283; CREATININE 0.6 mg/dL (0.5-0.9); ESTIMATED GFR > 60; GLUCOSE 102 mg/dL (70-104); POTASSIUM 4.3 mmol/L (3.5-5.1); SODIUM 143 mmol/L (136-145); TCO2 36 mmol/L (25-35)
[2019-02-24] MEDS: NEURONTIN PO SCH ×4 (09:50→17:56)
[2019-02-24 11:44] VITALS: BP 148/85
--- NOTE | 2019-02-24 22:48 | DISCHARGE SUMMARY ---
ADMISSION DATE: 02/18/2019 DISCHARGE DATE: 02/24/2019 DIAGNOSES: 1. Acute hypoxemic hypercarbic respiratory failure requiring intubation. 2. Metabolic encephalopathy, resolved. 3. Acute kidney injury resolved. 4. Chronic obstructive pulmonary disease. 5. Anemia of chronic disease. 6. Chronic pain and anxiety syndrome on chronic narcotic. 7. Polysubstance abuse with a history of overuse of her pain and anxiety medications. 8. Essential hypertension. 9. Hypothyroid. 10. Known coronary artery disease. 11. Chronic tobacco use and abuse. 12. Recent cardiopulmonary arrest. 13. Recent left pneumothorax, status post chest tube placement and removal. CONSULTS: Dr. Jossue Alvarado, Pulmonology. DIAGNOSTICS: 1. On 02/18/2019, CT of the head reveals stable brain with no evidence of acute intracranial pathology. 2. Chest x-ray 02/18/2019: Chest x-ray revealed right apical nodular density, stable when compared to 12/22/2018. No infiltrates or edema. There is a stable nodular area of thickening at the right lung apex. 3. On 02/19/2019, chest x-ray revealed atelectasis versus pneumonia in the lingula. Poor inspiration with endotracheal tube at the thalia. 4. On 02/21/2019, CT of the chest revealed stable right apical lesion which contains air bronchograms compared to prior emphysematous changes. Small bilateral pleural effusions with adjacent atelectasis. No discrete pneumonia. No evidence of pneumothorax. Stable, mildly prominent mediastinal lymph nodes. Microbiology: 1. Blood cultures x2 revealed no growth after 5 days. 2. Urine culture revealed no growth. 3. Sputum culture revealed normal clare. HOSPITAL COURSE: Ms. Bolden presented to the emergency room in hypercapnic hypoxemic arrest. She subsequently was intubated. Thankfully, she was able to be extubated on the and O2 saturation have remained 95 to 98 percent on nasal cannula. Dr. Alvarado, Pulmonology, did follow and manage the patient's respiratory status. The patient was known to be on 2 L of oxygen at home, which she was very noncompliant with. In fact, when she was found prior to coming to the emergency room, she did not have her oxygen on. We trended electrolytes and repleted as appropriate. She presented with a creatinine of 1.8 after hydration. Creatinine has remained 0.6 to 0.7. Her COPD was managed with DuoNeb's q.4 hours with q.2 hours p.r.n. She was found to have lingular pneumonia for which she received IV antibiotics and for which she is being discharged on Augmentin and doxycycline. She has a known right upper lobe mass that is stable from November, which will need to be followed up with her control panel builder for repeat CT in the next 4 to 6 weeks. DISCHARGE PHYSICAL EXAMINATION: Cardiovascular: Regular rate and rhythm. S1 and S2 appreciated. Extremities: She has no lower extremity edema. Calves are nontender to palpation. Pulmonary: She has decreased breath sounds throughout with prolonged expiration, expiratory phase. She does have expiratory wheezes bilateral. Gastrointestinal: Abdomen is soft, nontender, nondistended with bowel sounds in all 4 quadrants. Neurologic: She is alert and oriented. Discharge vital signs: Blood pressure is 148/80 with a heart rate of 90, respirations are 20, temperature is 98.7 oral with O2 saturations that are 95% to 100 percent on 4 L nasal cannula. DISCHARGE MEDICATIONS: 1. Trazodone 25 mg p.o. at bedtime p.r.n. 2. Prednisone 10 mg p.o. daily. 3. Protonix 40 mg p.o. b.i.d. 4. Melatonin 3 mg p.o. at bedtime. 5. Levothyroxine 150 mcg p.o. daily. 6. Icar-C 1 b.i.d. 7. Adelphi 10/325 one b.i.d. p.r.n. pain. 8. Mucinex D 1 p.o. b.i.d. 9. Gabapentin 100 mg p.o. b.i.d. 10. Folic acid 1 mg p.o. daily. 11. Tessalon Perles 100 mg p.o. t.i.d. p.r.n. cough. 12. Augmentin 1 p.o. q.12 hours for 5 days. 13. Doxycycline 100 mg p.o. b.i.d. for 5 days. FOLLOWUP/INSTRUCTIONS: 1. She is to follow up with her control panel builder in 1 to 2 weeks. 2. She will need a CT scan of the chest repeated in the next 4 to 6 weeks to evaluate the right upper lobe density. 3. She has been instructed by multiple providers the importance of wearing her home O2 at all times, taking her medications as prescribed to which she voices understanding. TIME SPENT: This is a greater than 30 minute discharge. Dictated by ALEXSANDRA Hemphill for Isael Hayward MD This chart was documented by, ALEXSANDRA Hemphill and accurately reflects the services performed, treatment plan and medical decisions as attested by the providers signature Isael Hayward MD. cc: ALEXSANDRA Hemphill MD
== END 2019-02-24 19:15 | disposition home or self-care (01) | DRG 917 ==
LOC: SUPCPDRO → ED 09:20 → SUATTDRO 13:56 → EDIPHOLD 13:56 → ICU 15:08 → 3N 02-20 10:10
PROVIDERS: ATTEND Internal Medicine
CPT/HCPCS: 31500; 51702; 70450; 71010; 71045; 71260; 73030; 80048; 80053; 81001; 82550; 82553; 82805; 82948; 83735; 84484; 85025; 87040; 87070; 87088; 87205; 93005; 93010; 94003; 94640; 94761; 96365; 96366; 96368; 96375; 96376; 97162; 97530; 99285; 99291; A9270; C9113; J0330; J1630; J1650; J1885; J2020; J2060; J2250; J2543; J3010; J3480; J7030; J7040; Q9967; S0164; XXXXX